=== PATIENT | male | born 1955 | race Caucasian/White ===

== ENCOUNTER → 2021-01-02 09:34 | Outpatient (BNVA) | payer MEDICARE, MEDICAID, SELFPAY | PROVIDERS: PCP Pediatrics; Visit Provider Urology | DX: Z13.89 Encounter for screening for other disorder (principal) | CPT/HCPCS: Q3014 ==

== ENCOUNTER 2023-06-22 12:55 | Emergency (ER) | payer MEDICARE, SELFPAY ==
[2023-06-22 13:05] VITALS: BP 138/92; PULSE 86; RESP 19; TEMP 36.6; O2SAT 93; BMI 29.3
--- NOTE | 2023-06-22 13:10 | ED.GENADULT ---
HPI - General Adult General Chief complaint: Urogenital-Male Stated complaint: Unable to Urinate For 5 Days Time Seen by Provider: 06/22/23 14:02 Source: patient Mode of arrival: ambulatory Limitations: no limitations History of Present Illness HPI narrative: Patient with enlarged prostate and difficult urination with anxiety says that for last 5 days not related much but when she arrived bladder scan showed only 20 cc patient feels very anxious not drinking fluids as he is afraid of his small bladder no nausea no vomiting Related Data Previous Rx's Medication Instructions Recorded pyridoxine (vitamin B6) 100 mg 100 mg PO DAILY 90 days #90 tabs 01/02/21 tablet tamsulosin 0.4 mg capsule (Flomax) 0.4 mg PO BEDTIME #90 caps 06/22/23 Allergies Allergy/AdvReac Type Severity Reaction Status Date / Time No Known Allergies Allergy Verified 06/22/23 13:05 [No Known Allergies*] Review of Systems Review of Systems: Yes all other systems are reviewed and are negative PMF Past Medical History Medical History Erectile dysfunction due to arterial insufficiency Surgical History History of eye surgery Social History Social History Alcohol intake: never Smoked in Last 30 Days: No Use of substances other than those prescribed or required for medical reasons: No Advance Directives: No Advance Directives Information Provided: Yes Physical Exam ED Vital Signs: Vital Signs - 24 hr 06/22/23 13:05 06/22/23 14:18 Temperature 98 F 98.2 F Pulse Rate 86 76 Respiratory Rate 19 16 Blood Pressure 138/92 H 124/81 Pulse Oximetry 93 95 Oxygen Delivery Method Room Air Room Air BMI result Body Mass Index 29.3 Appearance: Alert. Oriented X3. No acute distress. And Eyes: PERRLA, No Nystagmus ENT: Pharynx normal. Oral Mucosa moist Neck: Normal inspection. Neck supple. CVS: Normal heart rate and rhythm. Pulses normal. Respiratory: No respiratory distress. Equal air entry bilateral, no wheezing/rales/rhonchi Abdomen: Soft and nontender. Bowel sounds are present, no mass palpable, no CVA tenderness rectal: Enlarged prostate nontender Skin: Skin warm and dry. Normal skin color. Normal skin turgor. Extremities: No lower extremity edema. No calf tenderness Neuro: Oriented X 3. No motor deficit. Course Course Course Narrative: RME- 67 year old male presents for evaluation of urinary retention. He reports he has not urinated in the last [address] Mendiola. He is not experiencing any pain. Plan for labs, UA and bladder scan. Further work up deferred to primary provider. Medications Administered Discontinued Medications Generic Name Dose Route Start Last Admin Trade Name Freq PRN Reason Stop Dose Admin Tamsulosin HCl 0.4 mg 06/22/23 14:43 06/22/23 14:47 Tamsulosin Hcl 0.4 Mg Capsule PO 06/22/23 14:44 0.4 mg ONCE ONE Administration Medical Decision Making Medical Decision Making [facility] Narrative: Patient urined in the ER UA negative discharge him on Flomax Lab Data [facility] Lab Attestation statement: I reviewed the patient's lab results. 06/22/23 13:11 06/22/23 13:11 Labs: Lab Results 06/22/23 06/22/23 Range/Units 13:11 16:18 WBC 7.6 (4.8-10.8) X10*3/uL RBC 5.93 H (4.60-5.80) X10*6/uL Hgb 17.7 (14.0-18.0) g/dl Hct 51.5 (42.0-52.0) % MCV 86.8 (80.0-98.0) fL MCH 29.8 (27.0-33.0) pg MCHC 34.4 (31.0-36.0) g/dl RDW 13.2 (11.0-16.0) % Plt Count 243 (160-400) X10*3/uL MPV 9.8 (9.4-12.4) fL Immature Gran % (Auto) 0.3 (0.0-0.4) % Neut % (Auto) 50.2 (45-73) % Lymph % (Auto) 36.6 (20-40) % [place] % (Auto) 8.4 (2-11) % Eos % (Auto) 3.4 (0-4) % Baso % (Auto) 1.1 (0-2) % Lymph # (Auto) 2.8 (1.2-4.9) X10*3/uL [place] # (Auto) 0.6 (0.1-1.2) X10*3/uL Eos # (Auto) 0.3 (0.0-0.4) X10*3/uL Baso # (Auto) 0.1 (0.0-0.2) X10*3/uL Abs Immat Gran (auto) 0.02 (0.00-0.03) X10*3/uL Absolute Neuts (auto) 3.8 (2.0-8.3) x10*3/uL Absolute Nucleated RBC 0.000 (0.0-0.012) X10*3/uL Nucleated RBC % (auto) 0.0 (0.0-0.2) /100WBC Sodium 139 (135-145) mmol/L Potassium 4.0 (3.3-5.1) mmol/L Chloride 110 H (96-108) mmol/L Carbon Dioxide 21 L (22-29) mmol/L Anion Gap 12 (12-20) BUN 12 (9-16) mg/dL Creatinine 0.99 (0.5-1.4) mg/dL Estim Creat Clear Calc 73.3 Estimated GFR > 60 Random Glucose 106 (60-115) mg/dL Calcium 9.4 (8.4-10.2) mg/dL Total Bilirubin 0.8 (0.0-1.0) mg/dL AST 29 (5-37) U/L ALT 43 H (0-40) U/L Alkaline Phosphatase 55 (39-117) U/L Total Protein 7.5 (6.5-8.0) g/dL Albumin 4.3 (3.5-5.0) g/dL Lipase 20 (8-78) U/L Urine Color Yellow Urine Appearance Clear Urine pH 5.5 (5.0-9.0) Ur Specific [place] 1.025 (1.005-1.025) Urine Protein Trace (Neg-Trace) mg/dL Urine Glucose (UA) Negative (Negative) mg/dL Urine Ketones 15 (Negative) mg/dL Urine Blood Negative (Negative) Urine Nitrite Negative (Negative) Ur Leukocyte Esterase Negative (Negative) Urine RBC 0-2 (0-2) /HPF Urine WBC 0-5 (0-5) /HPF Ur Squamous Epith Cells 0-2 (0-2) /HPF Urine Bacteria None Seen (None Seen) Hyaline Casts 0-2 (0-2) /LPF Discharge Plan Discharge Clinical Impression: Benign prostatic hyperplasia Patient Disposition: Home, Self-Care Instructions: Enlarged Prostate (BPH) (ED) Additional Instructions: Drink plenty of fluids Take medication as prescribed for enlarged prostate and follow up with urologist Prescriptions: New tamsulosin [Flomax] 0.4 mg capsule 0.4 mg PO BEDTIME Qty: 90 0RF No Action pyridoxine (vitamin B6) 100 mg tablet 100 mg PO DAILY 90 Days Qty: 90 1RF Referrals: Barry Mendiola MD [Physician] - 2 weeks Interventions: ED Discharge Assessment Last Done: 06/22/23 17:19
[2023-06-22 13:22] LABS: MANUAL DIFF FLAG NO
[2023-06-22 13:24] LABS: Basophils Absolute Auto 0.1 X10*3/uL (0.0-0.2); Basophils Percent Auto 1.1 % (0-2); Eosinophils Absolute Auto 0.3 X10*3/uL (0.0-0.4); Eosinophils Percent Auto 3.4 % (0-4); Hematocrit 51.5 % (42.0-52.0); Hemoglobin 17.7 g/dl (14.0-18.0); Imm Gran Abs Auto 0.02 X10*3/uL (0.00-0.03); Imm Gran Pct Auto 0.3 % (0.0-0.4); Lymphocytes Absolute Auto 2.8 X10*3/uL (1.2-4.9); Lymphocytes Percent Auto 36.6 % (20-40); Mean Corpuscular HGB Conc 34.4 g/dl (31.0-36.0); Mean Corpuscular Hemoglobin 29.8 pg (27.0-33.0); Mean Corpuscular Volume 86.8 fL (80.0-98.0); Mean Platelet Volume 9.8 fL (9.4-12.4); Monocytes Absolute Auto 0.6 X10*3/uL (0.1-1.2); Monocytes Percent Auto 8.4 % (2-11); Neutrophils Absolute Auto 3.8 x10*3/uL (2.0-8.3); Neutrophils Percent Auto 50.2 % (45-73); Platelet Count 243 X10*3/uL (160-400); Red Blood Count 5.93 X10*6/uL (4.60-5.80); Red Cell Distribution Width 13.2 % (11.0-16.0); White Blood Count 7.6 X10*3/uL (4.8-10.8)
[2023-06-22 13:38] LABS: Alanine Aminotransferase 43 U/L (0-40); Albumin Level 4.3 g/dL (3.5-5.0); Alkaline Phosphatase 55 U/L (39-117); Anion Gap 12 (12-20); Aspartate Amino Transferase 29 U/L (5-37); Bilirubin Total 0.8 mg/dL (0.0-1.0); Blood Urea Nitrogen 12 mg/dL (9-16); Calcium 9.4 mg/dL (8.4-10.2); Carbon Dioxide 21 mmol/L (22-29); Chloride 110 mmol/L (96-108); Creatinine Clr Calc Pharmacy 73.3; Estimated Glomerular Filt Rate > 60; Glucose Random 106 mg/dL (60-115); Lipase 20 U/L (8-78); Sodium 139 mmol/L (135-145); Total Protein 7.5 g/dL (6.5-8.0)
--- NOTE | 2023-06-22 14:09 | PC.NURSE ---
Pt currently resting on stretcher, appears in NAD. States that he has not voided x4 days. Pt states that he stopped drinking water because he knew he couldn't pee. Hx of enlarged prostate. Bladder scan repeat showed ~20ml of urine. Pt denies pain/any other symptoms. A&Ox4. Calm & cooperative. WCTA
[2023-06-22 14:18] VITALS: BP 124/81; PULSE 76; RESP 16; TEMP 36.8; O2SAT 95
--- NOTE | 2023-06-22 14:19 | PC.NURSE ---
Pt unable to void x4 days, patient endorses history of prostate issues. States he attempted to contact urologist but was referred to ED. Was previously taking [place] but has since stopped. Pt states that he stopped drinking fluids several days ago because he was concerned for urinary retention and his bladder rupturing. Education provided.
[2023-06-22] MEDS: Tamsulosin HCL 0.4 MG CAPSULE PO (14:47)
[2023-06-22 16:00] VITALS: BP 132/88; PULSE 82; RESP 18; O2SAT 94
[2023-06-22 16:40] LABS: Appearance Urine Clear; Color Urine Yellow; Glucose Urine UA Negative (Negative); Leukocyte Esterase Urine Negative (Negative); Nitrite Urine Negative (Negative); PH 5.5 (5.0-9.0); Specific Gravity - Urine 1.025 (1.005-1.025); Urine Blood Negative (Negative); Urine Ketones 15 mg/dL (Negative); Urine Protein Trace mg/dL (Neg-Trace)
[2023-06-22 16:45] LABS: Bacteria Urine None Seen (None Seen); Hyaline Casts Urine 0-2 /LPF (0-2); RBC Urine 0-2 /HPF (0-2); Squamous Epithelial Cell Urine 0-2 /HPF (0-2); WBC Urine 0-5 /HPF (0-5)
== END 2023-06-22 17:48 | disposition home or self-care (01) ==
PROVIDERS: Physician Assistant; Emergency Provider Internal Medicine; PCP Pediatrics
DX: N40.0 Benign prostatic hyperplasia without lower urinary tract symptoms (principal); R33.9 Retention of urine, unspecified; Z79.899 Other long term (current) drug therapy
CPT/HCPCS: 36415; 51798; 80053; 81001; 83690; 85025; 99283; 99285

== ENCOUNTER 2023-09-20 14:34 | Outpatient (AMB) | payer MEDICARE, SELFPAY ==
--- NOTE | 2023-09-20 14:59 | A.OFFVIS_ITS ---
Intake Intake Visit Reasons: establish care/ BPH Intake Note: Patient is Present for Follow Up Urology Medication: Tamsulosin Antibiotic Allergies: none Blood Thinners: None PVR:12 Compliants: Patient was seen at ER few months back for retention. Patient states that his prostate is enlarged and caused him some urinary issues Allergies No Known Allergies [No Known Allergies*] Allergy (Verified 06/22/23 13:05) Medication List - Last Reconciled 09/20/23 by Barry Mendiola MD pyridoxine (vitamin B6) 100 mg PO DAILY 90 days tamsulosin (Flomax) 0.4 mg PO BEDTIME HPI HPI Comments History of Present Illness Details Margarito LOJA is a very pleasant male. They are a patient of Dr Platt. They are seen in the office today for the following urologic conditions. - nephrolithiasis - erectile dysfunction Had episode of urinary retention 3 months ago On Flomax with good effect No current active stones No recent imaging Restart vitamin B6 and perform imaging in 6 months Erections responsive to viagra Nephrolithiasis/Urolithiasis: Urolithiasis was diagnosed Long standing stone [place] [facility] [place] The patient previously had kidney stones whose composition w unknown. Laboratory investigations include no recent labs. 24 Hour urine evaluation none on file. Prior treatment(s) include 05/31/18 , left. Prior imaging includes 05/27 , a CT (computed tomography) scan of the abdomen/pelvis (stone protocol), showing radiodense stone(s) 4 x 4mm stones with 1 in left ureter 06/27 , a renal ultrasound 3 x left renal stones 4mm 02/25 , a renal ultrasound 3 x small stone son left 07/28 , a renal ultrasound, 3x 3mm stones on left side. The stone's maximum size is < 5mm. Current therapeutic plan will be to perform metabolic evaluation, General advice to maintain good fluid intake for urine greater than 1.5 L per day, reduce salt and reduce protein and acid loads was provided.. Erectile dysfunction: He presents today for for continued evaluation and management of erectile dysfunction. Symptoms have been present for/since long standing. Current treatment includes none. Prior therapies include oral medications - good response. At this time he experiences erections 05/27 are partial and insufficient for vaginal penetration, that undergo rapid detumesence after penetration, MARIEL 8-11 Moderate ED. Nocturnal erections do not occur. Overall he is satisfied with the current management. Therapeutic plan includes maintaining current therapy COUNT INCLUDES [facility] Medical History Erectile dysfunction due to arterial insufficiency Surgical History History of eye surgery Social History Alcohol intake: never Review of Systems Const Denies chills and Denies fever(s) Card Reports no additional complaints and Denies syncope Resp Denies cough GI Denies abdominal pain and Denies heartburn Reports as per HPI and Denies change in libido Neuro Denies syncope Psych Denies change in libido Endo Denies change in libido Physical Exam Const General: cooperative, healthy appearing, comfortable and no acute distress Orientation/consciousness: patient oriented x3 HEENT Face and sinus: Yes normal facial exam Mouth: moist mucous membranes Neck Neck: Yes normal visual inspection, Yes full ROM and Yes trachea midline Chest Chest palpation & inspection: normal inspection of the chest Resp Effort & Inspection: normal respiratory effort, able to speak in complete sentences and no respiratory distress GI Inspection: Yes normal to inspection Back/Spine/Pelvis Cervical Spine: normal cervical lordosis Thoracic/Lumbar Spine: thoracic and lumbar spine normal to inspection Skin General skin exam: no rashes or lesions noted Neuro General: patient oriented x3, gait normal, tone normal and moves all extremities Extrem General: Yes normal to inspection and Yes capillary refill normal Office Procedures Post Void Residual Post Residual Void Post Void Residual (PVR): 12 [id number] Void Residual by ultrasound Assessment & Plan Assessment & Plan (1) Erectile dysfunction due to arterial insufficiency: Code(s): N52.01 - Erectile dysfunction due to arterial insufficiency (2) Nephrolithiasis: Code(s): N20.0 - Calculus of kidney Plan Six month follow-up Orders: Orders AMB Urinalysis Automated Today Z13.9 - Encounter for screening, unspecified AMB Post Void Residual by ultrasound Today Z87.898 - Personal history of other specified conditions US renal BI 6 Months N20.0 - Calculus of kidney PSA,Total (Free>4and<10) 6 Months N52.01 - Erectile dysfunction due to arterial insufficiency Medications: Changed From pyridoxine (vitamin B6) 100 mg PO DAILY 90 days 90 tabs 1RF N20.0 - Calculus of kidney To pyridoxine (vitamin B6) 50 mg PO DAILY 90 days 90 tabs 1RF N20.0 - Calculus of kidney Patient Instructions: Imaging studies, laboratory and physical exam results were discussed and reviewed in detail. No major barriers to patient understanding were identified. An opportunity to ask questions regarding the treatment plan was provided. All questions were answered. The patient expressed understanding and agreement with the above treatment plan. The patient is aware they should contact our office by phone for worsening of their current condition or the appearance of new urologic symptoms. Compliance is encouraged with any medications and followup testing that is ordered. It is a privilege to participate in the urologic care of your patient. If you have any questions or concerns regarding treatment for the above conditions, or other urologic issues, please do not hesitate to contact me. The office telephone contact is [phone]. This note is constructed using voice recognition software. While every effort has been made to ensure accuracy filler shaker errors may have been included. Yours sincerely, Dr Barry Mendiola MD, [facility] - Urology Providers of Expert, Compassionate Care for the Genitourinary System Coding Level of Care Code Est Pt Level 4 (81814) Diagnoses Erectile dysfunction due to arterial insufficiency N52.01 Nephrolithiasis N20.0 CPT Codes Post Residual Void - PVR CPT Code: 91231-Umyb Void Residual by ultrasound ([id number])
== END 2023-09-20 15:29 | disposition home or self-care (01) ==
PROVIDERS: PCP Pediatrics; Visit Provider Urology
DX: N52.01 Erectile dysfunction due to arterial insufficiency (principal); N20.0 Calculus of kidney
CPT/HCPCS: 99214

== ENCOUNTER → 2023-09-20 14:34 | Outpatient (BNVA) | payer MEDICARE, SELFPAY | PROVIDERS: PCP Pediatrics; Visit Provider Urology | DX: N52.01 Erectile dysfunction due to arterial insufficiency (principal); N20.0 Calculus of kidney | CPT/HCPCS: 51798; 99212 ==

== ENCOUNTER 2024-03-14 12:40 | Outpatient (REF) | payer MEDICARE, SELFPAY ==
--- NOTE | ~2024-03-14 | US_ITS ---
EXAMINATION: US RETROPERITONEAL LIMITED (RENAL ONLY) CLINICAL INFORMATION: Calculus of kidney. COMPARISON: Renal ultrasound 07/09/2019 and 02/23/2019. CT abdomen and pelvis 04/16/2018. TECHNIQUE: Real-time imaging of the kidneys. Limited visualization due to bowel gas. FINDINGS: RIGHT KIDNEY: 11.7 x 5.3 x 4.7 cm (SAG x AP x TRV). No hydronephrosis. No renal calculi. Renal cortical thickness is normal. Limited visualization. LEFT KIDNEY: 12.2 x 5.1 x 4.2 cm (SAG x AP x TRV). A 3 mm lower pole calculus. No hydronephrosis. 3 mm punctate echogenic focus in the left renal cortex characteristic of calcification. Limited visualization. Renal cortical thickness is normal. US/US renal BI IMPRESSION: Left renal 3 mm lower pole calculus. No hydronephrosis.
== END 2024-03-14 12:41 | disposition home or self-care (01) ==
LOC: HO.US 12:40
PROVIDERS: PCP Pediatrics; Visit Provider Urology
DX: N20.0 Calculus of kidney (principal)
CPT/HCPCS: 76775

== ENCOUNTER 2024-03-21 14:32 | Outpatient (AMB) | payer MEDICARE, SELFPAY ==
--- NOTE | 2024-03-21 15:03 | A.OFFVIS_ITS ---
Intake Visit Reasons: 6m/US/PSA/PVR(PSA) Intake Note: Patient is Present for PVR/US Urology Med: Tamsulosin Antibiotic Allergy:None Blood Thinner: None Last PVR: 12 Todays PVR:38 Allergies No Known Allergies [No Known Allergies*] Allergy (Verified 03/25/24 06:53) HPI Comments Details: Margarito LOJA is a very pleasant male. They are a patient of Dr Platt. They are seen in the office today for the following urologic conditions. - nephrolithiasis - erectile dysfunction Six-month follow-up Prior episode of retention late 2022 Renal ultrasound 3 mm left lower pole stone Erections less responsive to on demand sildenafil. Discussed trial daily tadalafil. Prescription provided. Nephrolithiasis/Urolithiasis: Urolithiasis was diagnosed Long standing stone former 05/29/18 [facility] [place] visit. The patient previously had kidney stones whose composition w unknown. Laboratory investigations include no recent labs. 24 Hour urine evaluation none on file. Prior treatment(s) include 05/31/18 , left. Prior imaging includes 05/27 , a CT (computed tomography) scan of the abdomen/pelvis (stone protocol), showing radiodense stone(s) 4 x 4mm stones with 1 in left ureter 06/27 , a renal ultrasound 3 x left renal stones 4mm 02/25 , a renal ultrasound 3 x small stone son left 07/28 , a renal ultrasound, 3x 3mm stones on left side. - 03/02 renal ultrasound 3 mm left lower pole stone The stone's maximum size is < 5mm. Current therapeutic plan will be to perform metabolic evaluation, General advice to maintain good fluid intake for urine greater than 1.5 L per day, reduce salt and reduce protein and acid loads was provided.. Erectile dysfunction: He presents today for for continued evaluation and management of erectile dysfunction. Symptoms have been present for/since long standing. Current treatment includes none. Prior therapies include oral medications - good response. At this time he experiences erections 05/27 are partial and insufficient for vaginal penetration, that undergo rapid detumesence after penetration, MARIEL 8-11 Moderate ED. Nocturnal erections do not occur. Overall he is satisfied with the current management. Therapeutic plan includes maintaining current therapy PFSH Medical History Erectile dysfunction due to arterial insufficiency Surgical History History of eye surgery Social History Alcohol intake: never Use of substances other than those prescribed or required for medical reasons: No Advance Directives: No Advance Directives Information Provided: Yes Do you have a plan to hurt others: No Plan Review of Systems Const Denies chills and Denies fever(s) Card Reports no additional complaints and Denies syncope Resp Denies cough GI Denies abdominal pain and Denies heartburn Reports as per HPI and Denies change in libido Neuro Denies syncope Psych Denies change in libido Endo Denies change in libido Physical Exam Const General: cooperative, healthy appearing, comfortable and no acute distress Orientation/consciousness: patient oriented x3 HEENT Face and sinus: Yes normal facial exam Mouth: moist mucous membranes Neck Neck: Yes normal visual inspection, Yes full ROM and Yes trachea midline Chest Chest palpation & inspection: normal inspection of the chest Resp Effort & Inspection: normal respiratory effort, able to speak in complete sentences and no respiratory distress GI Inspection: Yes normal to inspection Back/Spine/Pelvis Cervical Spine: normal cervical lordosis Thoracic/Lumbar Spine: thoracic and lumbar spine normal to inspection Skin General skin exam: no rashes or lesions noted Neuro General: patient oriented x3, gait normal, tone normal and moves all extremities Extrem General: Yes normal to inspection and Yes capillary refill normal Office Procedures Post Void Residual Post Residual Void Post Void Residual (PVR): 38 [id number] Void Residual by ultrasound Assessment & Plan Assessment & Plan (1) Erectile dysfunction due to arterial insufficiency: Code(s): N52.01 - Erectile dysfunction due to arterial insufficiency Category: Medical (2) Nephrolithiasis: Code(s): N20.0 - Calculus of kidney Category: Medical Plan Three-month follow-up Orders: Orders Prostate Specific Antigen 3 Months N52.01 - Erectile dysfunction due to arterial insufficiency AMB Post Void Residual by ultrasound 03/21/24 Z13.9 - Encounter for screening, unspecified Testosterone, Free/Total 3 Months N52.01 - Erectile dysfunction due to arterial insufficiency Medications: New tadalafil 5 mg PO DAILY 90 tabs 0RF sexual activity 90 days N52.01 - Erectile dysfunction due to arterial insufficiency Patient Instructions: Imaging studies, laboratory and physical exam results were discussed and reviewed in detail. No major barriers to patient understanding were identified. An opportunity to ask questions regarding the treatment plan was provided. All questions were answered. The patient expressed understanding and agreement with the above treatment plan. The patient is aware they should contact our office by phone for worsening of their current condition or the appearance of new urologic symptoms. Compliance is encouraged with any medications and followup testing that is ordered. It is a privilege to participate in the urologic care of your patient. If you have any questions or concerns regarding treatment for the above conditions, or other urologic issues, please do not hesitate to contact me. The office telephone contact is [phone]. This note is constructed using voice recognition software. While every effort has been made to ensure accuracy tube dispatcher errors may have been included. Yours sincerely, Dr Barry Mendiola MD, [facility] - Urology Providers of Expert, Compassionate Care for the Genitourinary System Coding Level of Care Code Est Pt Level 4 (08368) Diagnoses Erectile dysfunction due to arterial insufficiency N52.01 Nephrolithiasis N20.0 CPT Codes Post Residual Void - PVR CPT Code: 13310-Tbfc Void Residual by ultrasound ([id number])
== END 2024-03-21 15:42 | disposition home or self-care (01) ==
PROVIDERS: PCP Pediatrics; Visit Provider Urology
DX: N52.01 Erectile dysfunction due to arterial insufficiency (principal); N20.0 Calculus of kidney
CPT/HCPCS: 99214

== ENCOUNTER → 2024-03-21 14:32 | Outpatient (BNVA) | payer MEDICARE, SELFPAY | PROVIDERS: PCP Pediatrics; Visit Provider Urology | DX: N20.0 Calculus of kidney (principal); N52.01 Erectile dysfunction due to arterial insufficiency | CPT/HCPCS: 51798; 99212 ==

== ENCOUNTER 2024-03-25 06:48 | Emergency (ER) | payer MEDICARE, SELFPAY ==
[2024-03-25 06:50] VITALS: BP 142/89; PULSE 92; RESP 18; TEMP 36.6; O2SAT 97; BMI 34.5
--- NOTE | 2024-03-25 07:23 | ECG_ITS ---
Test Reason : HYPERTENSION Blood Pressure : / mmHG Vent. Rate : 084 BPM Atrial Rate : 084 BPM P-R Int : 154 ms QRS Dur : 090 ms QT Int : 386 ms P-R-T Axes : 041 -02 030 degrees QTc Int : 456 ms Normal sinus rhythm Low voltage QRS Borderline ECG When compared with ECG of 03-MAR-2020 07:58, Vent. rate has increased BY 33 BPM Referred By: Cornel Flores Electronically Signed By:SAMANTHA GUERIN
--- NOTE | 2024-03-25 07:25 | ED_ITS ---
HPI - General Adult General Chief complaint: General Medical Stated complaint: High Blood Pressure Time Seen by Provider: 03/25/24 07:23 Source: patient Mode of arrival: ambulatory Limitations: no limitations History of Present Illness ED Provider: Cornel Flores PA-C HPI narrative: This is a 68 yo male pmh nephrolithiasis and erectile dysfunction presenting with complaint of high blood pressure x a day and a half. Patient reports he was researching online ways to become healthier and lower my sodium, cholesterol, and all that when he decided he should check his blood pressure. States he took his blood pressure multiple time at home and reports the highest reading was 158/127 which concerned him and led him to come in to ED at that time he did not have chest pain, sob, headache, dizziness, wekaness, vision changes. Patient reports he is inactive and overweight and does not participate in any forms of exercise. Denies chest pain, SOB, fever, chills, difficulty ambulating, headache, fatigue, weakness, numbness, tingling. Patient states he has not seen his PCP in 3 years due to the pandemic. He offers no complaints at this time just wants to get checked out. Related Data Previous Rx's ?Medication ?Instructions ?Recorded tamsulosin 0.4 mg capsule (Flomax) 0.4 mg PO BEDTIME #90 caps 06/22/23 pyridoxine (vitamin B6) 50 mg 50 mg PO DAILY 90 days #90 tabs 09/20/23 tablet tadalafil 5 mg tablet 5 mg PO DAILY sexual activity 90 03/21/24 days #90 tabs Allergies Allergy/AdvReac Type Severity Reaction Status Date / Time No Known Allergies Allergy Verified 03/25/24 06:53 [No Known Allergies*] Review of Systems 2 Review of Systems: Yes all other systems are reviewed and are negative [facility] Past Medical History Medical History Erectile dysfunction due to arterial insufficiency Surgical History History of eye surgery Social History Social History Alcohol intake: never Use of substances other than those prescribed or required for medical reasons: No Advance Directives: No Advance Directives Information Provided: Yes Do you have a plan to hurt others: No Plan Physical Exam ED Vital Signs: Vital Signs - 24 hr 03/25/24 06:50 03/25/24 07:48 Temperature 97.8 F 97.8 F Pulse Rate 92 88 Respiratory Rate 18 12 Blood Pressure 142/89 H 124/73 Pulse Oximetry 97 98 Oxygen Delivery Method Room Air Room Air BMI result Body Mass Index 34.5 vss. Appearance: Alert.? Oriented X3.? No acute distress.? Head: Normocephalic, atraumatic, no step-offs or deformities Eyes: Pupils equal, round and reactive to light.? Neck: Normal inspection.? Neck supple.? CVS: Normal heart rate and rhythm.? Pulses normal.? Respiratory: No respiratory distress.? Breath sounds normal.? Abdomen: Soft and nontender.? Skin: Skin warm and dry.? Normal skin color.? Normal skin turgor.? Extremities: No lower extremity edema.? No calf ttp. 5/5 strength to bilateral upper and lower extremities Neuro: Oriented X 3.? No motor deficit.? No sensory deficit. CN 2-12 intact Course Reevaluation(s) Reevaluation #1: CBC unremarkable. Chemistry pending. EKG nonischemic. Patient likely to be discharged home with PCP follow-up. I did give him a list of PCPs in the area so he could get a new primary care in case his primary will not see him anymore. Time: 07:58 Reevaluation #2: chemistry unremarkable. Normal trop ekg non ischemic. Plan dc home. Patient agrees with plan. Offers no medical complaints at this time. Educated patient on diagnosis and treatment plan, answered all question, patient verbalizes understanding. At this time patient will be discharged home, advised to return with new or worsening symptoms. Educated on worrisome signs and symptoms and when to return. At this time I feel comfortable discharge home. Time: 08:17 Medical Decision Making Medical Decision Making [facility] Narrative: [id number] 68 yo male with concern of high blood pressure readings taken at home x 1-2 days, highest reading reported at 158/127. Has not seen PCP in 3 years. PE: Benign Differential: Primary vs secondary HTN. Unlikely pheochromocytoma, malignancy, CO, hypertensive crisis/emergency, brain bleed, stroke, increased ICP. Plan: Labs, EKG, provide PCP resources Differential Diagnosis Differential Diagnoses: The differential diagnosis associated with the presentation includes Primary vs secondary HTN. Unlikely pheochromocytoma, malignancy, CO, hypertensive crisis/emergency, brain bleed, stroke, increased ICP. Admission/Observation Consideration of admission/observation: Escalation of care including admission/observation considered Unlikely Lab Data MDM Lab Attestation statement: I reviewed the patient's lab results. 03/25/24 07:44 03/25/24 07:44 Labs: Lab Results 03/25/24 Range/Units 07:44 WBC 6.1 (4.8-10.8) X10*3/uL RBC 5.22 (4.60-5.80) X10*6/uL Hgb 15.8 (14.0-18.0) g/dl Hct 44.7 (42.0-52.0) % MCV 85.6 (80.0-98.0) fL MCH 30.3 (27.0-33.0) pg MCHC 35.3 (31.0-36.0) g/dl RDW 13.5 (11.0-16.0) % Plt Count 198 (160-400) X10*3/uL MPV 10.3 (9.4-12.4) fL Immature Gran % (Auto) 0.5 H (0.0-0.4) % Neut % (Auto) 44.9 L (45-73) % Lymph % (Auto) 41.8 H (20-40) % Shannon % (Auto) 6.5 (2-11) % Eos % (Auto) 5.2 H (0-4) % Baso % (Auto) 1.1 (0-2) % Lymph # (Auto) 2.6 (1.2-4.9) X10*3/uL Shannon # (Auto) 0.4 (0.1-1.2) X10*3/uL Eos # (Auto) 0.3 (0.0-0.4) X10*3/uL Baso # (Auto) 0.1 (0.0-0.2) X10*3/uL Abs Immat Gran (auto) 0.03 (0.00-0.03) X10*3/uL Absolute Neuts (auto) 2.7 (2.0-8.3) x10*3/uL Absolute Nucleated RBC 0.000 (0.0-0.012) X10*3/uL Nucleated RBC % (auto) 0.0 (0.0-0.2) /100WBC Sodium 141 (135-145) mmol/L Potassium 3.8 (3.3-5.1) mmol/L Chloride 109 H (96-108) mmol/L Carbon Dioxide 23 (22-29) mmol/L Anion Gap 13 (12-20) BUN 10 (9-16) mg/dL Creatinine 0.99 (0.5-1.4) mg/dL Estim Creat Clear Calc 78.1 Estimated GFR > 60 Random Glucose 114 (60-115) mg/dL Calcium 9.2 (8.4-10.2) mg/dL Magnesium 2.1 (1.6-2.6) mg/dL Total Bilirubin 0.6 (0.0-1.0) mg/dL AST 32 (5-37) U/L ALT 35 (0-40) U/L Alkaline Phosphatase 51 (39-117) U/L Troponin I High Sens < 2.7 (<3.5-35.0) ng/L Total Protein 6.8 (6.5-8.0) g/dL Albumin 4.1 (3.5-5.0) g/dL Independent Interpretation I performed an independent interpretation of an: EKG (EKG results: Test Reason : HYPERTENSION Blood Pressure : / mmHG Vent. Rate : 084 BPM Atrial Rate : 084 BPM P-R Int : 154 ms QRS Dur : 090 ms QT Int : 386 ms P-R-T Axes : 041 -02 030 degrees QTc Int : 456 ms Normal sinus rhythm Low voltage QRS Borderline ECG When ) External Record Review External record reviewed: Outpatient record and Prior outpatient labs Chronic Conditions Patient?s care impacted by: Other (erectile dysfunction ) Critical Care Time Critical Care Time Critical Care Time: No Discharge Plan Discharge Clinical Impression: Hypertension Patient Disposition: Home, Self-Care Instructions: Hypertension (ED), Hypertension in the Older Adult (ED) Additional Instructions: Take your medications as prescribed. If you were prescribed antibiotics today, it is important that you take your medication to their entirety, do not skip any doses, do not finish them early. Follow-up with your primary care provider this week. Return to the emergency department with new or worsening symptoms. Such as fevers, chills, chest pain, shortness of breath, nausea, vomiting, dizziness, headache, vision changes, lethargy In case of emergency call 911 Check your blood pressure Tuesday, Tuesday, Tuesday once a day, write it down and share this information with your primary care provider. If your primary care provider does not see you due to lack of seeing them over the past few years I did give you a list of primary care providers in the area that are taking patients. Please call to schedule an appointment. Return if you have any symptoms such as chest pain, shortness of breath, headache, vision changes, dizziness or any new or worsening symptoms. Prescriptions: No Action tamsulosin [Flomax] 0.4 mg capsule 0.4 mg PO BEDTIME Qty: 90 0RF pyridoxine (vitamin B6) 50 mg tablet 50 mg PO DAILY 90 Days Qty: 90 1RF tadalafil 5 mg tablet 5 mg PO DAILY 90 Days Qty: 90 0RF Referrals: Physician,Unknown J [Primary Care Provider] - 2 days Stand Alone Forms: Work/School Release Print Language: [place]se
--- NOTE | 2024-03-25 07:27 | PC.NURSE ---
Pt comes from home for high BP readings starting a day ago. Pt not on blood pressure meds. States at home they were 100s/100s but since being here most recent blood pressure 124/73. Pt states no new stressors in life causing the high BP. Denies neuro symptoms, SOB, CP, n/v/d/ALLEN. EKG obtained. Awaiting lab results. Call hartman within reach.
[2024-03-25 07:48] VITALS: BP 124/73; PULSE 88; RESP 12; TEMP 36.6; O2SAT 98
[2024-03-25 07:50] LABS: MANUAL DIFF FLAG NO
[2024-03-25 07:57] LABS: Basophils Absolute Auto 0.1 X10*3/uL (0.0-0.2); Basophils Percent Auto 1.1 % (0-2); Eosinophils Absolute Auto 0.3 X10*3/uL (0.0-0.4); Eosinophils Percent Auto 5.2 % (0-4); Hematocrit 44.7 % (42.0-52.0); Hemoglobin 15.8 g/dl (14.0-18.0); Imm Gran Abs Auto 0.03 X10*3/uL (0.00-0.03); Imm Gran Pct Auto 0.5 % (0.0-0.4); Lymphocytes Absolute Auto 2.6 X10*3/uL (1.2-4.9); Lymphocytes Percent Auto 41.8 % (20-40); Mean Corpuscular HGB Conc 35.3 g/dl (31.0-36.0); Mean Corpuscular Hemoglobin 30.3 pg (27.0-33.0); Mean Corpuscular Volume 85.6 fL (80.0-98.0); Mean Platelet Volume 10.3 fL (9.4-12.4); Monocytes Absolute Auto 0.4 X10*3/uL (0.1-1.2); Monocytes Percent Auto 6.5 % (2-11); Neutrophils Absolute Auto 2.7 x10*3/uL (2.0-8.3); Neutrophils Percent Auto 44.9 % (45-73); Platelet Count 198 X10*3/uL (160-400); Red Blood Count 5.22 X10*6/uL (4.60-5.80); Red Cell Distribution Width 13.5 % (11.0-16.0); White Blood Count 6.1 X10*3/uL (4.8-10.8)
[2024-03-25 08:05] LABS: Alanine Aminotransferase 35 U/L (0-40); Albumin Level 4.1 g/dL (3.5-5.0); Alkaline Phosphatase 51 U/L (39-117); Anion Gap 13 (12-20); Aspartate Amino Transferase 32 U/L (5-37); Bilirubin Total 0.6 mg/dL (0.0-1.0); Blood Urea Nitrogen 10 mg/dL (9-16); Calcium 9.2 mg/dL (8.4-10.2); Carbon Dioxide 23 mmol/L (22-29); Chloride 109 mmol/L (96-108); Creatinine Clr Calc Pharmacy 78.1; Estimated Glomerular Filt Rate > 60; Glucose Random 114 mg/dL (60-115); Magnesium 2.1 mg/dL (1.6-2.6); Potassium 3.8 mmol/L (3.3-5.1); Sodium 141 mmol/L (135-145); Total Protein 6.8 g/dL (6.5-8.0)
[2024-03-25 08:13] LABS: Troponin-I High Sensitivity < 2.7 ng/L (<3.5-35.0)
[2024-03-25 08:14] VITALS: BP 131/82; PULSE 78; RESP 12; O2SAT 95
[2024-03-25 08:33] VITALS: BP 131/82; PULSE 76; RESP 15; TEMP 36.7; O2SAT 96
== END 2024-03-25 08:34 | disposition home or self-care (01) ==
PROVIDERS: Physician Assistant; Emergency Provider Emergency Medicine Emergency Medical Services
DX: I10 Essential (primary) hypertension (principal)
CPT/HCPCS: 36415; 80053; 83735; 84484; 85025; 93005; 99283; 99284

== ENCOUNTER → 2024-03-25 07:23 | Outpatient (BNV) | payer MEDICARE, SELFPAY | PROVIDERS: Emergency Provider Emergency Medicine Emergency Medical Services; Visit Provider Internal Medicine | DX: I10 Essential (primary) hypertension (principal) | CPT/HCPCS: 93010 ==

== ENCOUNTER 2024-08-13 09:06 | Outpatient (AMB) | payer MEDICARE, SELFPAY ==
--- NOTE | 2024-08-13 09:14 | AM.OFFWIN_ITS ---
Intake Vital Signs 08/13/24 09:15 Height 5 ft 7 in Weight 227 lb BMI 35.5 BP 132/80 Blood Pressure Location Lt brachial Position Sitting Pulse 89 Pulse Source Pulse Oximeter Temp 97.7 F Temp Source Oral Pulse Oximetry (%) 98 Oxygen Delivery Method Room Air Intake Visit Reasons: EP trouble sleeping Intake Note: Pt is here today c/o insomnia Allergies No Known Allergies [No Known Allergies*] Allergy (Verified 03/25/24 06:53) HPI EP trouble sleeping HPI Details This note is constructed using voice recognition software. While every effort has been made to ensure accuracy, fruit and vegetable inspector errors may have been included. The patient is a 69 year old male who presents to the clinic today with insomnia for the past 1 year. He reports he does not have a pcp and he has been waking 10 times per night due to prostate issues, which he is treated for. He reports that he has taken Tylenol PM as well as ZzzQuil which did not help the sleep. He requests Ambien, as he reports he has had this prescribed to him in the past, but it was taken away from him from his snf house due to taking it every day. [facility] Medical History Erectile dysfunction due to arterial insufficiency Surgical History History of eye surgery Social History Alcohol intake: never Review of Systems Const All systems reviewed & are unremarkable except as noted in HPI and below Physical Exam Vital Signs: Last Vital Signs Temp 97.7 F 08/13/24 09:15 Pulse 89 08/13/24 09:15 BP 132/80 08/13/24 09:15 Pulse Ox 98 08/13/24 09:15 Oxygen Delivery Method Room Air 08/13/24 09:15 BMI result Body Mass Index 35.5 Const General: cooperative, healthy appearing, comfortable, no acute distress and well developed Limitations: no limitations Eyes General: appearance normal, both eyes and all related structures Neck Neck: Yes normal visual inspection Resp Effort & Inspection: normal respiratory effort and able to speak in complete sentences Skin General skin exam: no rashes or lesions noted Assessment & Plan Assessment & Plan (1) Insomnia: Code(s): G47.00 - Insomnia, unspecified Qualifiers: Insomnia type: unspecified Qualified Code(s): G47.00 - Insomnia, unspecified Plan: Advised antihistamine use, and given reported failed response to diphenhydramine, will trial hydroxyzine prn. Advised follow up with pcp, and establish with new pcp. Plan See above for full details and plan. Medications: New hydroxyzine HCl 25 mg PO BEDTIME 15 days PRN 15 tabs 0RF insomnia Coding Level of Care Code Est Pt Level 3 (57564) Diagnoses Insomnia, unspecified type G47.00 Insomnia type: unspecified
[2024-08-13 09:15] VITALS: BP 132/80; PULSE 89; TEMP 36.5; O2SAT 98; BMI 35.5
== END 2024-08-13 09:48 | disposition home or self-care (01) ==
PROVIDERS: Visit Provider Registered Nurse
DX: G47.00 Insomnia, unspecified (principal)

== ENCOUNTER → 2024-08-13 09:06 | Outpatient (BNVA) | payer MEDICARE, SELFPAY | PROVIDERS: Visit Provider Registered Nurse | DX: G47.00 Insomnia, unspecified (principal) | CPT/HCPCS: 99212 ==

== ENCOUNTER 2024-08-29 11:59 | Emergency (ER) | payer MEDICARE, SELFPAY ==
--- NOTE | 2024-08-29 12:02 | ED_ITS ---
HPI - General Adult General Chief complaint: Extremity Injury, Lower Stated complaint: l knee pain Time Seen by Provider: 08/29/24 12:07 Source: patient Mode of arrival: ambulatory Limitations: no limitations History of Present Illness ED Provider: Radha DUBOIS narrative: Patient is a 69-year old male presenting with complaint of left knee pain for 5 weeks. Denies fall or other trauma. Seen by [facility] 3 days ago and treated with cortisone injection, denies improvement. Has already had x-rays. Rates current pain at 5/10. States that he is looking for oxycodone for pain. Denies fevers. Denies calf pain or swelling. MD complaint: knee pain Onset (ago): week(s) Treatments prior to arrival: other Related Data Previous Rx's ?Medication ?Instructions ?Recorded tamsulosin 0.4 mg capsule (Flomax) 0.4 mg PO BEDTIME #90 caps 06/22/23 pyridoxine (vitamin B6) 50 mg 50 mg PO DAILY 90 days #90 tabs 09/20/23 tablet tadalafil 5 mg tablet 5 mg PO DAILY sexual activity 90 03/21/24 days #90 tabs hydroxyzine HCl 25 mg tablet 25 mg PO BEDTIME PRN insomnia 15 08/13/24 days #15 tabs Allergies Allergy/AdvReac Type Severity Reaction Status Date / Time No Known Allergies Allergy Verified 08/29/24 12:04 [No Known Allergies*] Review of Systems Review of Systems: As per HPI Yes all other systems are reviewed and are negative Constitutional: Constitutional: Reports as per HPI [facility] Past Medical History Medical History Erectile dysfunction due to arterial insufficiency Surgical History History of eye surgery Social History Social History Alcohol intake: never Physical Exam ED Vital Signs: Vital Signs - 24 hr 08/29/24 12:03 Temperature 98 F Pulse Rate 79 Respiratory Rate 19 Blood Pressure 159/91 H Pulse Oximetry 98 Oxygen Delivery Method Room Air BMI result Body Mass Index 34.5 Vital signs have been reviewed and appear to be correct. Blood pressure elevated. Heart rate normal. Respiratory rate normal. Temperature normal. Oxygen saturation normal. Const General: cooperative, healthy appearing and no acute distress Orientation/consciousness: oriented to person, oriented to place, oriented to time and patient oriented x3 Limitations: no limitations HENMT Head: Yes normocephalic and Yes atraumatic Ears: external ears normal General nose exam: Normal external nose present Face and sinus: Yes face symmetric Mouth: oropharynx normal and moist mucous membranes Throat: Yes uvula midline Eyes Pupils: Equal, round and reactive pupils present Neck Neck: Yes normal visual inspection and Yes supple Resp Effort & Inspection: normal respiratory effort and able to speak in complete sentences Auscultation: clear to auscultation bilaterally Cardio Rate: regular rate Rhythm: regular rhythm Heart sounds: S1 normal heart sound present and S2 normal heart sound present GI Palpation (GI): Soft to palpation and nontender Auscultation: normoactive bowel sounds General: Yes no CVA tenderness Back/Spine/Pelvis Back: no CVA tenderness Skin General skin exam: elasticity normal and turgor normal Neuro General: oriented to person, oriented to place, oriented to time, patient oriented x3, moves all extremities, no focal motor deficits and CN's II-XI intact bilaterally Cranial nerves: Yes Equal, round and reactive pupils present Cognition (Neuro): normal cognition Extrem General: Yes full ROM, Yes no pedal edema and Yes no calf tenderness Left lower extremity: knee Details: normal to inspection, normal ROM and knee ligament exam normal; no swelling Psych Mental Status: mental status grossly normal Affect: normal affect Thought process: Normal thought process present Medical Decision Making Medical Decision Making MDM Narrative: Patient is a 69-year old male presenting with complaint of left knee pain for 5 weeks. On exam patient is awake, A+Ox3, BP elevated, VS otherwise WNL, afebrile, normal neurological exam without focal deficits, physical exam findings as above. Given reported symptoms and physical exam findings, initial differential includes osteoarthritis, effusion. No evidence of septic joint or ligamentous injury. Upon exam, patient states he is here for oxycodone for pain. Discussed with patient that oxycodone would not be appropriate management for 5/10 knee pain ongoing for over 5 weeks. Patient verbalized understanding of this, then asked for sleeping pills. Discussed with patient that this would be something to discussed with his primary care provider. Offered treatment with lidocaine patches or topical diclofenac gel, which patient declined. Advised patient to follow up with [facility]. Patient declined any additional evaluation or treatment. Stable for discharge. Differential Diagnosis Differential Diagnoses: The differential diagnosis associated with the presentation includes As per [facility] External Record Review External record reviewed: Inpatient record, Office record and Outpatient record Prescription Management I considered prescription management with: Pain Medication Discharge Plan Discharge Clinical Impression: Left knee pain Patient Disposition: Home, Self-Care Instructions: Knee Pain (ED) Additional Instructions: You were evaluated in the emergency department for knee pain. You were offered treatment with medication which you declined. We recommend that you follow up with [facility]. Return for new or concerning symptoms. Prescriptions: No Action tamsulosin [Flomax] 0.4 mg capsule 0.4 mg PO BEDTIME Qty: 90 0RF pyridoxine (vitamin B6) 50 mg tablet 50 mg PO DAILY 90 Days Qty: 90 1RF tadalafil 5 mg tablet 5 mg PO DAILY 90 Days Qty: 90 0RF hydroxyzine HCl 25 mg tablet 25 mg PO BEDTIME PRN (Reason: insomnia) 15 Days Qty: 15 0RF Print Language: Icelandic
[2024-08-29 12:03] VITALS: BP 159/91; PULSE 79; RESP 19; TEMP 36.6; O2SAT 98; BMI 34.5
--- NOTE | 2024-08-29 12:10 | PC.NURSE ---
pt asked for oxycodone or sleeping pills, informed that we do not prescribe oxydodone for chronic pain
[2024-08-29 12:20] VITALS: BP 159/91; PULSE 79; RESP 19; TEMP 36.6; O2SAT 98
== END 2024-08-29 12:20 | disposition home or self-care (01) ==
PROVIDERS: Emergency Provider Emergency Medicine
DX: M25.562 Pain in left knee (principal)
CPT/HCPCS: 99282

== ENCOUNTER 2024-10-08 11:27 | Inpatient (IN) | payer MEDICARE, SELFPAY ==
--- NOTE | ~2024-10-08 | XR_ITS ---
EXAMINATION: XR CHEST CLINICAL INFORMATION: ams COMPARISON: Chest 03/03/2020 TECHNIQUE: Frontal view of the chest was obtained. FINDINGS: No significant abnormality is noted involving the heart, lungs, mediastinum, bony thorax or soft tissues. XR/XR chest 1V IMPRESSION: Unremarkable chest examination. Electronically signed by: Saad Olmstead MD 10/08/2024 02:[address] [facility]
[2024-10-08 12:08] VITALS: BP 118/78; BP 147/87; PULSE 110; PULSE 116; RESP 20; TEMP 36.5; O2SAT 96; O2SAT 97; BMI 34.5
--- NOTE | 2024-10-08 12:09 | ECG_ITS ---
Test Reason : TACHY Blood Pressure : / mmHG Vent. Rate : 103 BPM Atrial Rate : 103 BPM P-R Int : 154 ms QRS Dur : 094 ms QT Int : 358 ms P-R-T Axes : 064 022 045 degrees QTc Int : 468 ms Sinus tachycardia Possible Left atrial enlargement Borderline ECG When compared with ECG of 25-MAR-2024 07:30, No significant change was found Referred By: Christian Baltazar Electronically Signed By:PASTORA BRAVO MD
[2024-10-08 12:21] LABS: MANUAL DIFF FLAG NO
[2024-10-08 12:23] LABS: Basophils Absolute Auto 0.1 X10*3/uL (0.0-0.2); Basophils Percent Auto 0.8 % (0-2); Eosinophils Absolute Auto 0.1 X10*3/uL (0.0-0.4); Eosinophils Percent Auto 0.5 % (0-4); Hematocrit 51.1 % (42.0-52.0); Hemoglobin 18.1 g/dl (14.0-18.0); Imm Gran Abs Auto 0.06 X10*3/uL (0.00-0.03); Imm Gran Pct Auto 0.5 % (0.0-0.4); Lymphocytes Absolute Auto 1.7 X10*3/uL (1.2-4.9); Lymphocytes Percent Auto 14.3 % (20-40); Mean Corpuscular HGB Conc 35.4 g/dl (31.0-36.0); Mean Corpuscular Hemoglobin 29.7 pg (27.0-33.0); Mean Corpuscular Volume 83.9 fL (80.0-98.0); Mean Platelet Volume 9.8 fL (9.4-12.4); Monocytes Absolute Auto 0.9 X10*3/uL (0.1-1.2); Monocytes Percent Auto 7.2 % (2-11); Neutrophils Absolute Auto 9.1 x10*3/uL (2.0-8.3); Neutrophils Percent Auto 76.7 % (45-73); Platelet Count 294 X10*3/uL (160-400); Red Blood Count 6.09 X10*6/uL (4.60-5.80); Red Cell Distribution Width 13.9 % (11.0-16.0); White Blood Count 11.9 X10*3/uL (4.8-10.8)
--- NOTE | 2024-10-08 12:28 | PC.NURSE ---
Belongings in [employer] closet shelf 1
[2024-10-08 12:35] LABS: Anion Gap 15 (12-20); Blood Urea Nitrogen 15 mg/dL (9-16); Calcium 9.9 mg/dL (8.4-10.2); Carbon Dioxide 21 mmol/L (22-29); Chloride 108 mmol/L (96-108); Creatinine Clr Calc Pharmacy 71.9; Estimated Glomerular Filt Rate > 60; Glucose Random 81 mg/dL (60-115); Potassium 3.7 mmol/L (3.3-5.1); Sodium 140 mmol/L (135-145)
[2024-10-08 12:55] LABS: Alanine Aminotransferase 56 U/L (0-40); Albumin Level 4.9 g/dL (3.5-5.0); Alkaline Phosphatase 84 U/L (39-117); Aspartate Amino Transferase 43 U/L (5-37); Bilirubin Direct 0.3 mg/dL (0.0-0.5); Bilirubin Total 0.9 mg/dL (0.0-1.0); Total Protein 8.1 g/dL (6.5-8.0)
[2024-10-08 12:56] LABS: Troponin-I High Sensitivity < 2.7 ng/L (<3.5-35.0)
[2024-10-08 13:38] LABS: Influenza A PCR NEGATIVE (Negative); Influenza B PCR NEGATIVE (Negative); Resp Syncy Virus RNA Qual PCR NEGATIVE (Negative); SARS COV2 PCR INHOUSE NEGATIVE (Negative)
[2024-10-08 13:50] LABS: Appearance Urine Clear; Color Urine Dark Yellow; Glucose Urine UA Negative (Negative); Leukocyte Esterase Urine Negative (Negative); Nitrite Urine Negative (Negative); PH 5.5 (5.0-9.0); Specific Gravity - Urine >= 1.030 (1.005-1.025); UMIC TRIGGER UACC YES; Urine Blood Negative (Negative); Urine Ketones 80 mg/dL (Negative); Urine Protein 100 (2+) mg/dL (Neg-Trace)
[2024-10-08 13:56] LABS: Amphetamine Screen Urine Not Detected (Not Detect); Barbiturates, Urine Not Detected (Not Detect); Benzodiazepines Screen Urine Not Detected (Not Detect); Buprenorphine Scr Not Detected (Not Detect); Cannabinoid Screen Urine Not Detected (Not Detect); Cocaine Screen Urine Not Detected (Not Detect); Fentanyl, urine Not Detected (Not Detect); Methadone Screen, Urine Not Detected (Not Detect); Opiate Screen Urine Not Detected (Not Detect); Oxycodone Screen Urine Not Detected (Not Detect); Phencyclidine Screen Urine Not Detected (Not Detect)
[2024-10-08 13:59] LABS: Bacteria Urine None Seen (None Seen); RBC Urine 0-2 /HPF (0-2); Squamous Epithelial Cell Urine 0-2 /HPF (0-2); WBC Urine 0-5 /HPF (0-5)
--- NOTE | 2024-10-08 14:51 | ED_ITS ---
HPI - Psych General Chief Complaint: Psychiatric Symptoms Stated Complaint: SEC 12,?BED BUG BITES,UNABLE TO CARE FOR SELF Time Seen by Provider: 10/08/24 12:08 Source: patient and EMS History of Present Illness ED Provider: Delaney HPI Narrative: 69-year-old male with past medical history of insomnia presenting for hallucinations and failure to thrive. Patient was visited by a behavioral health team staff member who found the patient be disheveled and hallucinating. Patient also has diffuse excoriations edit result of him scratching. There is concern for bedbugs/scabies. Patient is alert and oriented however he states that he has not been able to sleep for weeks. Pt denies SI/HI and hallucinations however when not in active conversation with staff patient is witnessed to be speaking to self and inanimate objects Related Data Previous Rx's ?Medication ?Instructions ?Recorded tamsulosin 0.4 mg capsule (Flomax) 0.4 mg PO BEDTIME #90 caps 06/22/23 pyridoxine (vitamin B6) 50 mg 50 mg PO DAILY 90 days #90 tabs 09/20/23 tablet tadalafil 5 mg tablet 5 mg PO DAILY sexual activity 90 03/21/24 days #90 tabs hydroxyzine HCl 25 mg tablet 25 mg PO BEDTIME PRN insomnia 15 08/13/24 days #15 tabs Allergies Allergy/AdvReac Type Severity Reaction Status Date / Time No Known Allergies Allergy Verified 10/08/24 12:11 [No Known Allergies*] Review of Systems 2 Review of Systems: pt endorses insomnia Yes all other systems are reviewed and are negative PMFSH Past Medical History Medical History Erectile dysfunction due to arterial insufficiency Surgical History History of eye surgery Social History Social History Alcohol intake: never Smoked in Last 30 Days: No Use of substances other than those prescribed or required for medical reasons: No Advance Directives: No Advance Directives Information Provided: Yes Do you have a plan to hurt others: No Plan Physical Exam 2 Vital Signs: Vital Signs: Last Vital Signs Temp 97.7 F 10/08/24 12:08 Pulse 111 H 10/08/24 16:36 Resp 18 10/08/24 16:36 BP 125/89 10/08/24 16:36 Pulse Ox 95 10/08/24 16:36 O2 Del Method Room Air 10/08/24 16:36 BMI result Body Mass Index 34.5 well appearing although disheveled unlabored breathing with clear lung barragan [id number] rrr abd soft nontender diffuse excoriation and urticaria Medications Administered Discontinued Medications Generic Name Dose Route Start Last Admin Trade Name Donovan PRN Reason Stop Dose Admin Acetaminophen 650 mg 10/08/24 15:59 10/08/24 16:52 Acetaminophen 325 Mg Tablet PO 10/08/24 16:00 Not Given ONCE ONE Diphenhydramine HCl 25 mg 10/08/24 13:43 10/08/24 16:38 Diphenhydramine Hcl 25 Mg Capsule PO 10/08/24 13:44 25 mg ONCE ONE Administration Haloperidol Lactate 5 mg 10/08/24 17:42 10/08/24 18:00 Haloperidol Lactate 5 Mg/Ml Vial IM 10/08/24 17:43 5 mg ONCE ONE Administration Permethrin 1 appl 10/08/24 15:59 10/08/24 16:38 Permethrin 5 % Cream 60 Gm Tube TOPICAL 10/08/24 16:00 1 appl ONCE ONE Administration Protocol Medical Decision Making Medical Decision Making MDM Narrative: 69-year-old male presenting for rash and hallucinations. I am concerned for the following; failure to thrive, psychiatric illness, electrolyte/metabolic disturbance, bedbug/scabies -pt decontaminated -labs and imaging studies ordered -labs notable for hemoconcentration, electrolytes within normal limits, creatinine at baseline -benadryl and permethrin ordered -haldol ordered for persistent agitation Pt has been medically cleared for psych and consult care team placed Patient is so the patient here and pending care team recommendations. I will sign him out to the night provider Lab Data 10/08/24 12:16 10/08/24 12:16 Labs: Lab Results 10/08/24 10/08/24 10/08/24 Range/Units 12:16 12:53 13:37 WBC 11.9 H (4.8-10.8) X10*3/uL RBC 6.09 H (4.60-5.80) X10*6/uL Hgb 18.1 H (14.0-18.0) g/dl Hct 51.1 (42.0-52.0) % MCV 83.9 (80.0-98.0) fL MCH 29.7 (27.0-33.0) pg MCHC 35.4 (31.0-36.0) g/dl RDW 13.9 (11.0-16.0) % Plt Count 294 D (160-400) X10*3/uL MPV 9.8 (9.4-12.4) fL Immature Gran % (Auto) 0.5 H (0.0-0.4) % Neut % (Auto) 76.7 H (45-73) % Lymph % (Auto) 14.3 L (20-40) % [place] % (Auto) 7.2 (2-11) % Eos % (Auto) 0.5 (0-4) % Baso % (Auto) 0.8 (0-2) % Lymph # (Auto) 1.7 (1.2-4.9) X10*3/uL [place] # (Auto) 0.9 (0.1-1.2) X10*3/uL Eos # (Auto) 0.1 (0.0-0.4) X10*3/uL Baso # (Auto) 0.1 (0.0-0.2) X10*3/uL Abs Immat Gran (auto) 0.06 H (0.00-0.03) X10*3/uL Absolute Neuts (auto) 9.1 H (2.0-8.3) x10*3/uL Absolute Nucleated RBC 0.000 (0.0-0.012) X10*3/uL Nucleated RBC % (auto) 0.0 (0.0-0.2) /100WBC Sodium 140 (135-145) mmol/L Potassium 3.7 (3.3-5.1) mmol/L Chloride 108 (96-108) mmol/L Carbon Dioxide 21 L (22-29) mmol/L Anion Gap 15 (12-20) BUN 15 (9-16) mg/dL Creatinine 1.06 (0.5-1.4) mg/dL Estim Creat Clear Calc 71.9 Estimated GFR > 60 Random Glucose 81 (60-115) mg/dL Calcium 9.9 D (8.4-10.2) mg/dL Total Bilirubin 0.9 (0.0-1.0) mg/dL Direct Bilirubin 0.3 (0.0-0.5) mg/dL AST 43 H (5-37) U/L ALT 56 H (0-40) U/L Alkaline Phosphatase 84 (39-117) U/L Troponin I High Sens < 2.7 (<3.5-35.0) ng/L Total Protein 8.1 H (6.5-8.0) g/dL Albumin 4.9 (3.5-5.0) g/dL Urine Color Dark Yellow Urine Appearance Clear Urine pH 5.5 (5.0-9.0) Ur Specific [place] >= 1.030 H (1.005-1.025) Urine Protein 100 (2+) H (Neg-Trace) mg/dL Urine Glucose (UA) Negative (Negative) mg/dL Urine Ketones 80 (Negative) mg/dL Urine Blood Negative (Negative) Urine Nitrite Negative (Negative) Ur Leukocyte Esterase Negative (Negative) Urine RBC 0-2 (0-2) /HPF Urine WBC 0-5 (0-5) /HPF Ur Squamous Epith Cells 0-2 (0-2) /HPF Urine Bacteria None Seen (None Seen) Hyaline Casts 3-5 (0-2) /LPF Urine Opiates Screen Not Detected (Not Detect) Ur Buprenorphine Scrn Not Detected (Not Detect) ng/mL Ur Oxycodone Screen Not Detected (Not Detect) ng/mL Urine Methadone Screen Not Detected (Not Detect) ng/mL Urine Fentanyl Screen Not Detected (Not Detect) Ur Barbiturates Screen Not Detected (Not Detect) Ur Phencyclidine Scrn Not Detected (Not Detect) Ur Amphetamines Screen Not Detected (Not Detect) U Benzodiazepines Scrn Not Detected (Not Detect) Urine Cocaine Screen Not Detected (Not Detect) U Marijuana (THC) Screen Not Detected (Not Detect) Influenza Type A (PCR) NEGATIVE (Negative) Influenza Type B (PCR) NEGATIVE (Negative) RSV RNA Qual (PCR) NEGATIVE (Negative) SARS-CoV-2 RNA (RT-PCR) NEGATIVE (Negative) Discharge Plan Discharge Clinical Impression: Hallucinations, Itching Patient Disposition: Still a Patient Prescriptions: No Action tamsulosin [Flomax] 0.4 mg capsule 0.4 mg PO BEDTIME Qty: 90 0RF pyridoxine (vitamin B6) 50 mg tablet 50 mg PO DAILY 90 Days Qty: 90 1RF tadalafil 5 mg tablet 5 mg PO DAILY 90 Days Qty: 90 0RF hydroxyzine HCl 25 mg tablet 25 mg PO BEDTIME PRN (Reason: insomnia) 15 Days Qty: 15 0RF Interventions: [place]-Suicide Risk Severity Scale Last Done: 10/08/24 12:12 Print Language: Yoruba
--- NOTE | 2024-10-08 15:41 | MHC.CARE ---
Pt's sister Naomi Oneil whom is also his HCP (not invoked) called to provide collateral information regarding Pt. She reported that Pt has had mental health concerns since approximately 1981. She stated he experiences AH and that he says that people tell him to say bizarre things and ask inappropriate questions. She stated the other day at the [employer] he was laughing out loud-responding to internal stimuli, and sticking his tongue out in a bizarre manner. He was reportedly asking his sister if she had to kill her or a stranger who would she kill. 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 He was in the [facility] [place] in the , went AWOL and was missing for months until found in a motel in [place] with almost no food, not caring for himself. He came addicted to crack cocaine in the and eventually got sober around [id number]. Naomi reported Pt has suffered from severe depression his entire life however has no HX of suicide attempts. He has been wearing the same clothes since May; drained his bank account gambling, and is not caring for himself. He recently impulsively took a train to [place] in June because he thought he could jimenez on his lap top better there; gave away his phone and was stranded. After a stranger helped him his sister was able to pick him up. She is highly concerned he will be discharged and stated he goes missing for long periods of time.
--- NOTE | 2024-10-08 16:03 | MHC.CARE ---
Naomi, Pt's sister and HCP can be reached at [phone]
[2024-10-08 16:36] VITALS: BP 125/89; PULSE 111; RESP 18; O2SAT 95
[2024-10-08] MEDS: Permethrin 5 % Cream 60 GM TUBE 1 APPL TOPICAL (16:38)
[2024-10-08] MEDS: diphenhydrAMINE HCL 25 MG CAPSULE PO (16:38)
--- NOTE | 2024-10-08 16:49 | PC.NURSE ---
pt attempted to cheek his tylenol and benadryl. pt spat the tylenol into the toilet after stating he could not take it. pt did appear to take his benadryl
--- NOTE | 2024-10-08 17:53 | PC.NURSE ---
pt continues to run out of his room into other pt areas. pt with apparent infestation with scabies given rash to SAÚL arms, trunk and legs, itching, open in some areas. pt informed that he is a section 12 pending CARE team eval and that he cannot leave the room. pt continues to attempt to leave the room. Request made for IM medication given pts hx with not tolerating PO meds well.
[2024-10-08] MEDS: Haloperidol Lactate 5 MG/ML VIAL IM (18:00)
[2024-10-09 00:27] VITALS: RESP 18
[2024-10-09 05:23] VITALS: BP 133/95; PULSE 103; RESP 18; TEMP 36.5; O2SAT 96
[2024-10-09 08:12] VITALS: BP 134/87; PULSE 116; RESP 16; O2SAT 95
--- NOTE | 2024-10-09 08:39 | PC.NURSE ---
Care of Pt assumed at change of shift. 1:1 sitter present and contact precautions in place. Pt is observed resting comfortably with eye closed. IPLOC (bed search) awaiting placement.
--- NOTE | 2024-10-09 10:02 | PC.NURSE ---
Spoke with Care Team re: plan of care. Per CT, Pt is a candidate for a [facility] admission. More information regarding room availability should be know around/after lunch time. If no room available, CT plans to meet with Pt to reassess. Pt resting quietly in room with lights dimmed. 1:1 sitting present and contact precautions in place. Dispo pending.
--- NOTE | 2024-10-09 12:55 | PHA.MEDREC ---
Addendum entered by Scar Shin 10/09/24 13:11: reviewed Original Note: Pharmacy Consult ? Medication Reconciliation Pharmacy has completed the medication reconciliation. Spoke with patients sister over the phone and she was not sure what the patient was taking for medications but isn't sure what he is really taking at the moment. She stated she is confident the patient is not taking any medications at this time but does not know when he last took them. 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 I also asked about the Vitamin B6 and she stated she does not think the patient is not taking any OTC medications right now. I called patients pharmacy and they confirmed he last got the Hydroxyzine 25mg tab filled 08/23 for 15 days as needed for insomnia. I asked about the Vitamin B6 and Tamsulosin 0.4mg tabs and they stated they have no past claims for those medications being filled for at least a year. The pharmacy did confirm he picked up Tadalafil 5mg tabs 08/13 for 90 days. I updated the list from what patients pharmacy confirmed with me.
[2024-10-09 18:00] VITALS: RESP 19
[2024-10-09 20:52] VITALS: BP 139/71; PULSE 100; RESP 16; TEMP 36.4; O2SAT 98
--- NOTE | 2024-10-10 02:30 | PC.NURSE ---
this rn assumed care of pt, pt resting in stretcher, no acute distress noted. 1:1 sitter at bedside for safety.
[2024-10-10 05:59] VITALS: BP 121/89; PULSE 99; RESP 18; TEMP 37.1; O2SAT 95
--- NOTE | 2024-10-10 06:03 | PC.NURSE ---
pt awake and alert at this time, pt offers no complaints, no distress noted, 1:1 sitter at bedside.
--- NOTE | 2024-10-10 07:25 | MHC.EDTECH ---
pt awake and alert at this time, on precautions for scabies, 1:1 sitter at bedside, seen running down hallway to get a coffee, security present to assist escorting him back to his room. coffee provided for him
--- NOTE | 2024-10-10 08:31 | PC.NURSE ---
Pt cooperative however impulsive and noted talking to self at times. Bolting out of room numerous times but redirectable verbally. Further treatment given as charted and pt to be moved to POD, remains maryana bedsearch. Steady on feet.
--- NOTE | 2024-10-10 08:56 | PC.NURSE ---
patient attempting to place chair on bed to look out window. multiple attempts to educate patient on keeping chair on floor unsuccessfully. chair removed from room and placed behind nurses station
[2024-10-10 14:30] VITALS: BP 102/73; PULSE 108; RESP 18; TEMP 36.6; O2SAT 93
--- NOTE | 2024-10-10 19:36 | PC.NURSE ---
patient seated in common area self dialoguing at times redirectable in good spitirs able to let his wishes be known
[2024-10-10] MEDS: Melatonin 3 MG TABLET 6 MG PO (19:56)
[2024-10-10 20:07] VITALS: BP 128/90; PULSE 104; RESP 18; TEMP 36.9; O2SAT 97
--- NOTE | 2024-10-10 22:27 | PC.NURSE ---
patient appears restless, self dialogues in milieu.
[2024-10-10] MEDS: QUEtiapine Fumarate 50 MG TABLET PO (22:45)
[2024-10-11] MEDS: diphenhydrAMINE HCL 25 MG CAPSULE 50 MG PO (00:48)
[2024-10-11] MEDS: chlorproMAZINE HCl 100 MG TABLET PO (02:11)
--- NOTE | 2024-10-11 02:13 | PC.NURSE ---
consulted provider regarding patient heading to restroom q hour and self dialoguing, seeking out more information if symptoms have increased since arrival. patient actively self dialoguing in room, gesturing in air. t/w will relay to oncoming regarding perhaps follow up labs in am to check electrolytes
--- NOTE | 2024-10-11 02:54 | PC.NURSE ---
patient back out to bathroom again. asked again for medicine which t/w reiterated its been 30 some odd minutes since last administration
--- NOTE | 2024-10-11 03:36 | PC.NURSE ---
patient asks for sleep meds again, back from bathroom
--- NOTE | 2024-10-11 05:35 | PC.NURSE ---
longer duration between trips to rest room. also within last hour asked about legal status-if he was sectioned here. seemingly he may feel the perception is he was tricked by his sister
[2024-10-11 06:25] VITALS: BP 101/73; PULSE 110; RESP 18; TEMP 36.8; O2SAT 95
--- NOTE | 2024-10-11 08:03 | PC.NURSE ---
patient has gone to the bathroom x2 in the last 30min, will perform a post void bladder scan
[2024-10-11 09:32] LABS: MANUAL DIFF FLAG NO
[2024-10-11 09:35] LABS: Basophils Absolute Auto 0.1 X10*3/uL (0.0-0.2); Basophils Percent Auto 0.9 % (0-2); Eosinophils Absolute Auto 0.1 X10*3/uL (0.0-0.4); Eosinophils Percent Auto 1.4 % (0-4); Hematocrit 45.7 % (42.0-52.0); Hemoglobin 16.5 g/dl (14.0-18.0); Imm Gran Abs Auto 0.04 X10*3/uL (0.00-0.03); Imm Gran Pct Auto 0.5 % (0.0-0.4); Lymphocytes Absolute Auto 2.3 X10*3/uL (1.2-4.9); Lymphocytes Percent Auto 27.2 % (20-40); Mean Corpuscular HGB Conc 36.1 g/dl (31.0-36.0); Mean Corpuscular Hemoglobin 29.9 pg (27.0-33.0); Mean Corpuscular Volume 82.9 fL (80.0-98.0); Mean Platelet Volume 9.8 fL (9.4-12.4); Monocytes Absolute Auto 0.8 X10*3/uL (0.1-1.2); Neutrophils Absolute Auto 5.2 x10*3/uL (2.0-8.3); Platelet Count 213 X10*3/uL (160-400); Red Blood Count 5.51 X10*6/uL (4.60-5.80); Red Cell Distribution Width 13.9 % (11.0-16.0); White Blood Count 8.6 X10*3/uL (4.8-10.8)
[2024-10-11 09:47] LABS: Anion Gap 14 (12-20); Blood Urea Nitrogen 15 mg/dL (9-16); Calcium 9.7 mg/dL (8.4-10.2); Carbon Dioxide 25 mmol/L (22-29); Chloride 104 mmol/L (96-108); Creatinine Clr Calc Pharmacy 68.7; Estimated Glomerular Filt Rate > 60; Glucose Random 106 mg/dL (60-115); Potassium 3.5 mmol/L (3.3-5.1); Sodium 139 mmol/L (135-145)
--- NOTE | 2024-10-11 12:09 | PC.NURSE ---
report given to veronica solano on s1
--- NOTE | 2024-10-11 13:07 | PC.NURSE ---
Pt. arrived on unit via WC at 12:40 accompanied by 2 RNs. Changeover with contraband search and skin assmt. completed. Pt. with rash and scratches shirley UE's and LE's. He states extremities have been itching for ~ 2 weeks. Pt. treated with oral and topical insecticides in ED. He lives alone in an apartment and his sister/HCP contacted EMs to bring him to the ED when he presented as decompensated and not caring for himself. Pt. oriented to person, place, time, and vaguely to situation, but lacks insight and presents as disheveled, disorganized and with a flight of ideas. Pt. pleasant and cooperative with admission process and signed CV. He states that sister/HCP is aware of his admission. He is ambulatory without assistive devices and continent.
[2024-10-11 13:23] LABS: Alanine Aminotransferase 62 U/L (0-40); Albumin Level 4.3 g/dL (3.5-5.0); Alkaline Phosphatase 93 U/L (39-117); Anion Gap 16 (12-20); Aspartate Amino Transferase 71 U/L (5-37); Bilirubin Total 0.4 mg/dL (0.0-1.0); Blood Urea Nitrogen 15 mg/dL (9-16); Calcium 9.4 mg/dL (8.4-10.2); Carbon Dioxide 23 mmol/L (22-29); Chloride 103 mmol/L (96-108); Estimated Glomerular Filt Rate > 60; Glucose Random 159 mg/dL (60-115); Potassium 3.6 mmol/L (3.3-5.1); Sodium 138 mmol/L (135-145); Total Protein 7.1 g/dL (6.5-8.0)
[2024-10-11 19:28] VITALS: BP 137/71; PULSE 96; TEMP 36.3; O2SAT 97
[2024-10-11] MEDS: hydrOXYzine HCL 25 MG TABLET PO (20:49)
[2024-10-11] MEDS: traZODone HCL 50 MG TABLET PO (20:49)
[2024-10-11] MEDS: OLANZapine 2.5 MG TABLET PO (20:49)
[2024-10-12] MEDS: OLANZapine 2.5 MG TABLET PO (02:47)
[2024-10-12] MEDS: hydrOXYzine HCL 25 MG TABLET PO ×2 (02:47→20:00)
--- NOTE | 2024-10-12 08:42 | HO.PSYADMNOT ---
[facility] Date of Service: 10/12/24 Chief Complaint: Psychosis Sources of Information: patient interviewed, chart reviewed and crisis/core team assessment reviewed Additional Sources of Information: Naomi- [phone] [facility] Subjective Notes: Valentin Warning (given and shows understanding) and Section 12B Narrative: Mr. Jade is a 69 year-old male who was brought via EMS after he was assessed by [facility] in the community. Pt apparently has not taken a shower since May nor has changed his clothes. Per sister, pt's apartment is in very deplorable conditions, with toilet never flushed dishes dirty for months. Pt had been talking to someone who is not there. Sister also reports he has been obsessed with finding any woman to have sex with. Sister reports she has been notified by the banking management consulting manager of larger amounts of money that he is trying to withdraw from the his bank which she suspects is to give to people and she worries that she may be target of financial scam. Sister reports she has also been contacted by apartment management as pt has been knocking at neighbors doors asking for a phone. In the ED, utox was negative. CBC mostly unremarkable. CMP with no electrolyte abnormalities. BUN 15, Cr 1.03, creatinine clearance 75. UA without signs of UTI, but positive for >100 protein. On the unit, pt presents as restless. He asks this commercial insurance underwriter if he can go today prior to starting meeting. He asks why he was brought to the hospital against his will, which this commercial insurance underwriter explained above concerns. Pt reports he does not hear voices but he pretend there are two people in the room and we talk. When asked about what does he talk about, he states things like how to find the next sexual partner. He reports he has a plan to reach out to a drug dealer and ask them to connect him with a woman with substance use issues so that he can buy cocaine and give it to her and they can give him sex in return. He reports he is sure no woman would have sex with him unless he pays for it and thinks that if it is a woman with substance use then he would have a better chance to have sex. He goes on to say that he has a small and soft penis. He says that if his plan does not work, then he will use cocaine which he reports he has not used in 20 years. While meeting with this commercial insurance underwriter, he kept turning to the side and talking to someone who was not there. He denied SI/HI. He reports he had OP psych tx but not in about 10 years. He reports he used to be on olanzapine but he gained weight and did not like it. He appears disheveled and unkept. He reports he takes money out to give to women. He denies buying cocaine recently. Past Psychiatric History: INpt: none in the past OP: [facility]- more than 9 years ago. Past medication trials: olanzapine Medical Evaluation Reviewed: Yes [facility] Medical History Erectile dysfunction due to arterial insufficiency Surgical History History of eye surgery Family History: none Social History: Never . 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 His level of functioning drastically declined. Hx of paranoia and psychosis. He has 3 siblings. Mother . Substance History: Hx of cocaine use. He has not used in more than 20 years. Trauma History: denies Diagnostics Vital Signs (24Hr): Vital Signs - 24 hr 10/11/24 19:28 Temperature 97.4 F Pulse Rate 96 Blood Pressure 137/71 Pulse Oximetry 97 Oxygen Delivery Method Room Air BMI result Body Mass Index 34.5 Labs 10/11/24 09:27 10/11/24 13:03 Labs: Laboratory Results - last 48 hr 10/11/24 10/11/24 09:27 13:03 WBC 8.6 RBC 5.51 Hgb 16.5 Hct 45.7 MCV 82.9 MCH 29.9 MCHC 36.1 H RDW 13.9 Plt Count 213 D MPV 9.8 Immature Gran % (Auto) 0.5 H Neut % (Auto) 61.0 Lymph % (Auto) 27.2 [place] % (Auto) 9.0 Eos % (Auto) 1.4 Baso % (Auto) 0.9 Lymph # (Auto) 2.3 [place] # (Auto) 0.8 Eos # (Auto) 0.1 Baso # (Auto) 0.1 Abs Immat Gran (auto) 0.04 H Absolute Neuts (auto) 5.2 Absolute Nucleated RBC 0.000 Nucleated RBC % (auto) 0.0 Sodium 139 138 Potassium 3.5 3.6 Chloride 104 103 Carbon Dioxide 25 23 Anion Gap 14 16 BUN 15 15 Creatinine 1.11 1.03 Estim Creat Clear Calc 68.7 74.0 Estimated GFR > 60 > 60 Random Glucose 106 159 H Calcium 9.7 9.4 Total Bilirubin 0.4 AST 71 H ALT 62 H Alkaline Phosphatase 93 Total Protein 7.1 Albumin 4.3 Imaging Radiology Impressions: ITS Impressions Chest X-Ray 10/08/24 12:40 IMPRESSION: Unremarkable chest examination. Electronically signed by: Saad Olmstead MD 10/08/2024 02:07 PM [facility] Meds/Allergies Allergies Allergies Allergy/AdvReac Type Severity Reaction Status Date / Time No Known Allergies Allergy Verified 10/08/24 12:11 [No Known Allergies*] Mental Status Exam Mental Status Exam Narrative: Appearance: wearing hospital gown, poor hygiene, unkept hair and slater. in NAD Behavior: somewhat guarded, superficially cooperative Psychomotor: no agitation or retardation noted Speech: mostly clear, normal rate/rhythm/volume, spontaneous TP: tangential, no loose association TC: finding women to have sex through drug dealer Mood: good Affect: constricted SI: denies HI: denies VH/AH although denies appears internally preoccupied, having conversation with someone who is not there. Delusions: he has sexually preoccupations, some suspiciousness. Insight/judgment: impaired x 2. Memory/cog: alert oriented x 3. not to situation. no formal testing completed. Assessment & Plan Assessment & Plan (1) Schizophrenia: Status: Acute Code(s): F20.9 - Schizophrenia, unspecified Assessment and Plan: versus schizoaffective bipolar type Plan Mr. Jade is a 69 year-old male who was brought via EMS after being assessed by [facility]. He has been presenting with increased psychosis, hearing things that others can't hear, preoccupied with finding women to have sex and putting himself in potentially dangerous situation such as attempting to contact drug dealer to find women who have addiction issues. In addition, he has not showered nor change clothes (per his report and sister) since May. His apartment is in deplorable condition. We discussed risks, benefits and alternative treatment options. He agreed to start risperidone. I started him on topamax as he had reported some cravings of cocaine- but may need different mood stabilizer for hypersexual behaviors. PLAN 1. Admit to S1, sect 12b, 5 minutes checks for safety 2. Start risperidone 1mg po BID, topamax 25mg po BID. 3. aftercare planning. Patient educated on: diagnosis, medication risk/benefits and substance abuse Reason for continued inpatient stay Substantial Risk for: inability to function Statement Statement: I have reviewed the history and physical and performed a pertinent examination on my patient. No changes have occurred unless specified. If the History and Physical was not performed prior to admission, the Hospitalist's service will be consulted for completing the admission physical. Time Spent With Patient Time: Total time managing care of this patient today ____ minutes.
[2024-10-12 10:05] VITALS: BP 159/74; PULSE 90; RESP 18; TEMP 36.6; O2SAT 94
[2024-10-12] MEDS: Topiramate 25 MG TABLET PO ×2 (10:30→20:00)
[2024-10-12] MEDS: risperiDONE 1 MG TABLET PO ×2 (10:30→20:00)
[2024-10-12 20:00] VITALS: BP 140/84; PULSE 104; RESP 18; TEMP 36.2; O2SAT 95
[2024-10-12] MEDS: traZODone HCL 50 MG TABLET PO ×2 (20:00→22:35)
[2024-10-12] MEDS: OLANZapine 10 MG TABLET PO (20:00)
[2024-10-13 07:31] LABS: Cholesterol 139 mg/dL (<200); HDL Cholesterol 51 mg/dL (>40); LDL Cholesterol Calculated 38 mg/dL (<100); Triglycerides 250 mg/dL (<150)
[2024-10-13 08:29] VITALS: BP 133/82; PULSE 105; RESP 18; TEMP 36.4; O2SAT 96
[2024-10-13] MEDS: Topiramate 25 MG TABLET PO ×2 (08:39→20:06)
[2024-10-13] MEDS: hydrOXYzine HCL 25 MG TABLET PO ×2 (08:39→23:47)
[2024-10-13] MEDS: risperiDONE 1 MG TABLET PO ×2 (08:39→20:06)
--- NOTE | 2024-10-13 09:41 | P.PNPSI_ITS ---
Subjective Subjective Date of Service: 10/13/24 Reason For Visit: Psychosis Subjective Notes: Conditional Voluntary Interim History: For patient is good with Nursing. Slept for 3 hours last night. Very focused on sleep. With filing writer states he is eager for discharge in that sleep has been terrible. Clearly understood Section 12. Wanted to communicate he was not a danger to himself, others and that he is able to care for himself. Was unable to appreciate what other people were concerned about return to living conditions prior to admission. [place] he was being cared for in the hospital. Has been attending groups. Regarding sleep, will try Ambien 5 mg as patient reports this was helpful many years ago 1 medications such as Zyprexa Medication Compliance: Yes Side effects from medications: No Attending Groups: Yes Review of Systems Acute medical concerns: No Review of Systems Review of Systems unremarkable Mental Status Exam Mental Status Exam Narrative: Appearance: wearing hospital gown, poor hygiene, unkept hair and slater. in NAD Behavior: superficially cooperative Psychomotor: no agitation or retardation noted Speech: mostly clear, normal rate/rhythm/volume, spontaneous TP: tangential TC: focused on sleep Mood: good Affect: constricted SI: denies HI: denies VH/AH denies Delusions: nothing over Insight/judgment: impaired x 2. Memory/cog: alert oriented x 3. not to situation. no formal testing completed. Diagnostics Vital Signs (24Hr): Vital Signs - 24 hr 10/12/24 10:05 10/12/24 20:00 10/13/24 08:29 Temperature 97.9 F 97.1 F 97.6 F Pulse Rate 90 104 H 105 H Respiratory Rate 18 18 18 Blood Pressure 159/74 H 140/84 H 133/82 Pulse Oximetry 94 95 96 Oxygen Delivery Method Room Air Room Air Room Air BMI result Body Mass Index 34.5 Labs 10/11/24 09:27 10/11/24 13:03 Labs: Laboratory Results - last 48 hr 10/11/24 10/11/24 10/13/24 09:27 13:03 07:06 Sodium 139 138 Potassium 3.5 3.6 Chloride 104 103 Carbon Dioxide 25 23 Anion Gap 14 16 BUN 15 15 Creatinine 1.11 1.03 Estim Creat Clear Calc 68.7 74.0 Estimated GFR > 60 > 60 Random Glucose 106 159 H Calcium 9.7 9.4 Total Bilirubin 0.4 AST 71 H ALT 62 H Alkaline Phosphatase 93 Total Protein 7.1 Albumin 4.3 Triglycerides 250 H Cholesterol 139 LDL Cholesterol, Calc 38 HDL Cholesterol 51 Imaging Radiology Impressions: ITS Impressions Chest X-Ray 10/08/24 12:40 IMPRESSION: Unremarkable chest examination. Electronically signed by: Saad Olmstead MD 10/08/2024 02:07 PM [facility] Medications Medications Current Medications Acetaminophen (Acetaminophen 325 Mg Tablet) 650 mg PO Q6H PRN PRN Reason: Headache/Pain Mild Scale (1-3) Al Hydroxide/Mg Hydroxide (Magnesium Hydrox/Alum Hydrox 30 Ml Oral.Susp) 30 ml PO Q6H PRN PRN Reason: Heartburn/Nausea Hydroxyzine HCl (Hydroxyzine Hcl 25 Mg Tablet) 25 mg PO Q6H PRN PRN Reason: Anxiety Last Admin: 10/13/24 08:39 Dose: 25 mg Magnesium Hydroxide (Milk Of Magnesia 30 Ml Oral.Susp) 30 ml PO DAILY PRN PRN Reason: Constipation Olanzapine (Olanzapine 10 Mg Tablet) 10 mg PO Q6H PRN PRN Reason: Psychosis/agitation Last Admin: 10/12/24 20:00 Dose: 10 mg Risperidone (Risperidone 1 Mg Tablet) 1 mg PO BID [facility] Last Admin: 10/13/24 08:39 Dose: 1 mg Topiramate (Topiramate 25 Mg Tablet) 25 mg PO BID [facility] Last Admin: 10/13/24 08:39 Dose: 25 mg Trazodone HCl (Trazodone Hcl 50 Mg Tablet) 50 mg PO BEDTIME MRX1 PRN PRN Reason: Insomnia Last Admin: 10/12/24 22:35 Dose: 50 mg Allergies Allergies Allergy/AdvReac Type Severity Reaction Status Date / Time No Known Allergies Allergy Verified 10/08/24 12:11 [No Known Allergies*] Assessment & Plan Assessment & Plan (1) Schizophrenia: Status: Acute Code(s): F20.9 - Schizophrenia, unspecified Assessment and Plan: versus schizoaffective bipolar type Plan Mr. Jade is a 69 year-old male who was brought via EMS after being assessed by [facility]. He has been presenting with increased psychosis, hearing things that others can't hear, preoccupied with finding women to have sex and putting himself in potentially dangerous situation such as attempting to contact drug dealer to find women who have addiction issues. In addition, he has not showered nor change clothes (per his report and sister) since May. His apartment is in deplorable condition. We discussed risks, benefits and alternative treatment options. He agreed to start risperidone. I started him on topamax as he had reported some cravings of cocaine- but may need different mood stabilizer for hypersexual behaviors. PLAN 1. Admit to S1, sect 12b, 5 minutes checks for safety 2. Start risperidone 1mg po BID, topamax 25mg po BID. 3. aftercare planning. 10/13/2024: Will trial Ambien 5 mg for very poor sleep Reason for continued inpatient stay Substantial Risk for: inability to function and rapid decompensation Time Spent With Patient Time: Total time managing care of this patient today ____ minutes.
[2024-10-13] MEDS: Flu Vacc TS2024-25(6mos up)/PF 0.5 ML SYRINGE IM (14:36)
[2024-10-13 20:00] VITALS: BP 133/83; PULSE 100; RESP 18; TEMP 36.1; O2SAT 95
[2024-10-13] MEDS: OLANZapine 10 MG TABLET PO (20:06)
[2024-10-13] MEDS: traZODone HCL 100 MG TABLET PO ×2 (20:06→23:47)
[2024-10-13] MEDS: Zolpidem Tartrate 5 MG TABLET PO (20:06)
--- NOTE | 2024-10-14 08:25 | HO.PSYCHPN ---
Subjective Subjective Date of Service: 10/14/24 Reason For Visit: Psychosis Medical Problems Affecting Mental Status: No Interim History: Slept much better last night with ambien 5mg. Educated on ambien being short term medication in hospital and only for nighttime use. Remains eager for discharge. Still highlighting believes he is not a danger to himself, others and that he is able to care for himself. Some group attendance Medication Compliance: Yes Side effects from medications: No Attending Groups: Intermittent Review of Systems Acute medical concerns: No Review of Systems Review of Systems unremarkable Mental Status Exam Mental Status Exam Narrative: Appearance: wearing hospital gown, poor hygiene, unkept hair and slater. in NAD Behavior: superficially cooperative Psychomotor: no agitation or retardation noted Speech: mostly clear, normal rate/rhythm/volume, spontaneous TP: tangential TC: focused on discharge Mood: good Affect: constricted SI: denies HI: denies VH/AH denies Delusions: nothing over Insight/judgment: impaired x 2. Memory/cog: alert oriented x 3. not to situation. no formal testing completed. Diagnostics Vital Signs (24Hr): Vital Signs - 24 hr 10/13/24 08:29 10/13/24 20:00 Temperature 97.6 F 97 F Pulse Rate 105 H 100 Respiratory Rate 18 18 Blood Pressure 133/82 133/83 Pulse Oximetry 96 95 Oxygen Delivery Method Room Air Room Air BMI result Body Mass Index 34.5 Labs 10/11/24 09:27 10/11/24 13:03 Labs: Laboratory Results - last 48 hr 10/13/24 07:06 Triglycerides 250 H Cholesterol 139 LDL Cholesterol, Calc 38 HDL Cholesterol 51 Imaging Radiology Impressions: ITS Impressions Chest X-Ray 10/08/24 12:40 IMPRESSION: Unremarkable chest examination. Electronically signed by: Saad Olmstead MD 10/08/2024 02:07 PM [facility] Medications Medications Current Medications Acetaminophen (Acetaminophen 325 Mg Tablet) 650 mg PO Q6H PRN PRN Reason: Headache/Pain Mild Scale (1-3) Al Hydroxide/Mg Hydroxide (Magnesium Hydrox/Alum Hydrox 30 Ml Oral.Susp) 30 ml PO Q6H PRN PRN Reason: Heartburn/Nausea Hydroxyzine HCl (Hydroxyzine Hcl 25 Mg Tablet) 25 mg PO Q6H PRN PRN Reason: Anxiety Last Admin: 10/13/24 23:47 Dose: 25 mg Magnesium Hydroxide (Milk Of Magnesia 30 Ml Oral.Susp) 30 ml PO DAILY PRN PRN Reason: Constipation Olanzapine (Olanzapine 10 Mg Tablet) 10 mg PO Q6H PRN PRN Reason: Psychosis/agitation Last Admin: 10/13/24 20:06 Dose: 10 mg Risperidone (Risperidone 1 Mg Tablet) 1 mg PO BID [facility] Last Admin: 10/13/24 20:06 Dose: 1 mg Topiramate (Topiramate 25 Mg Tablet) 25 mg PO BID [facility] Last Admin: 10/13/24 20:06 Dose: 25 mg Trazodone HCl (Trazodone Hcl 100 Mg Tablet) 100 mg PO BEDTIME MRX1 PRN PRN Reason: Insomnia Last Admin: 10/13/24 23:47 Dose: 100 mg Zolpidem Tartrate (Zolpidem Tartrate 5 Mg Tablet) 5 mg PO BEDTIME [facility] Last Admin: 10/13/24 20:06 Dose: 5 mg Allergies Allergies Allergy/AdvReac Type Severity Reaction Status Date / Time No Known Allergies Allergy Verified 10/08/24 12:11 [No Known Allergies*] Assessment & Plan Assessment & Plan (1) Schizophrenia: Status: Acute Code(s): F20.9 - Schizophrenia, unspecified Assessment and Plan: versus schizoaffective bipolar type Plan Mr. Jade is a 69 year-old male who was brought via EMS after being assessed by [facility]. He has been presenting with increased psychosis, hearing things that others can't hear, preoccupied with finding women to have sex and putting himself in potentially dangerous situation such as attempting to contact drug dealer to find women who have addiction issues. In addition, he has not showered nor change clothes (per his report and sister) since May. His apartment is in deplorable condition. We discussed risks, benefits and alternative treatment options. He agreed to start risperidone. I started him on topamax as he had reported some cravings of cocaine- but may need different mood stabilizer for hypersexual behaviors. PLAN 1. Admit to S1, sect 12b, 5 minutes checks for safety 2. Start risperidone 1mg po BID, topamax 25mg po BID. 3. aftercare planning. 10/13/2024: Will trial Ambien 5 mg for very poor sleep 10/14/24: sleeping better. Educated on ambien being short term medication in hospital and only for nighttime use Reason for continued inpatient stay Substantial Risk for: inability to function and rapid decompensation Time Spent With Patient Time: Total time managing care of this patient today ____ minutes.
[2024-10-14 08:45] VITALS: BP 171/81; PULSE 106; RESP 18; TEMP 36.3; O2SAT 96
[2024-10-14] MEDS: risperiDONE 1 MG TABLET PO ×2 (08:47→20:16)
[2024-10-14] MEDS: Topiramate 25 MG TABLET PO ×2 (08:47→20:16)
[2024-10-14] MEDS: hydrOXYzine HCL 25 MG TABLET PO (14:23)
[2024-10-14 20:00] VITALS: BP 133/71; PULSE 102; RESP 20; TEMP 36.1; O2SAT 96
[2024-10-14] MEDS: Zolpidem Tartrate 5 MG TABLET PO (20:16)
[2024-10-15] MEDS: hydrOXYzine HCL 25 MG TABLET PO ×3 (02:16→17:00)
[2024-10-15 07:39] VITALS: BP 124/82; PULSE 95; RESP 18; TEMP 36.4; O2SAT 98
[2024-10-15] MEDS: OLANZapine 10 MG TABLET PO (08:06)
[2024-10-15] MEDS: Topiramate 25 MG TABLET PO ×2 (08:06→20:28)
[2024-10-15] MEDS: risperiDONE 1 MG TABLET PO ×2 (08:06→20:27)
--- NOTE | 2024-10-15 14:55 | P.PNPSI_ITS ---
Subjective Subjective Date of Service: 10/15/24 Reason For Visit: Psychosis Subjective Notes: Section 12B Interim History: Pt slept about 7hrs. No behavioral concerns over the weekend. He showered. less self dialoguing, but still internally preoccupied. No SI/HI. minimal insight into symptoms and need for ongoing tx but has agreed to [place] of risperidone, Uzedy. He also agreed to be referred to psychiatrist and therapist. Medication Compliance: Yes Side effects from medications: No Review of Systems Review of Systems unremarkable Yes all other systems are reviewed and are negative Mental Status Exam Mental Status Exam Narrative: Appearance: wearing hospital gown, poor hygiene, unkept hair and slater. in NAD Behavior: superficially cooperative Psychomotor: no agitation or retardation noted Speech: mostly clear, normal rate/rhythm/volume, spontaneous TP: tangential TC: focused on discharge Mood: good Affect: constricted SI: denies HI: denies VH/AH denies Delusions: nothing over Insight/judgment: impaired x 2. Memory/cog: alert oriented x 3. not to situation. no formal testing completed. Diagnostics Vital Signs (24Hr): Vital Signs - 24 hr 10/14/24 20:00 10/15/24 07:39 Temperature 96.9 F 97.6 F Pulse Rate 102 H 95 Respiratory Rate 20 18 Blood Pressure 133/71 124/82 Pulse Oximetry 96 98 Oxygen Delivery Method Room Air Room Air BMI result Body Mass Index 34.5 Labs 10/11/24 09:27 10/11/24 13:03 Imaging Radiology Impressions: ITS Impressions Chest X-Ray 10/08/24 12:40 IMPRESSION: Unremarkable chest examination. Electronically signed by: Saad Olmstead MD 10/08/2024 02:07 PM [facility] Medications Medications Current Medications Acetaminophen (Acetaminophen 325 Mg Tablet) 650 mg PO Q6H PRN PRN Reason: Headache/Pain Mild Scale (1-3) Al Hydroxide/Mg Hydroxide (Magnesium Hydrox/Alum Hydrox 30 Ml Oral.Susp) 30 ml PO Q6H PRN PRN Reason: Heartburn/Nausea Hydroxyzine HCl (Hydroxyzine Hcl 25 Mg Tablet) 25 mg PO Q6H PRN PRN Reason: Anxiety Last Admin: 10/15/24 08:06 Dose: 25 mg Magnesium Hydroxide (Milk Of Magnesia 30 Ml Oral.Susp) 30 ml PO DAILY PRN PRN Reason: Constipation Olanzapine (Olanzapine 10 Mg Tablet) 10 mg PO Q6H PRN PRN Reason: Psychosis/agitation Last Admin: 10/15/24 08:06 Dose: 10 mg Risperidone (Risperidone 1 Mg Tablet) 1 mg PO BID [facility] Last Admin: 10/15/24 08:06 Dose: 1 mg Topiramate (Topiramate 25 Mg Tablet) 25 mg PO BID [facility] Last Admin: 10/15/24 08:06 Dose: 25 mg Trazodone HCl (Trazodone Hcl 100 Mg Tablet) 100 mg PO BEDTIME MRX1 PRN PRN Reason: Insomnia Last Admin: 10/13/24 23:47 Dose: 100 mg Zolpidem Tartrate (Zolpidem Tartrate 5 Mg Tablet) 5 mg PO BEDTIME [facility] Last Admin: 10/14/24 20:16 Dose: 5 mg Allergies Allergies Allergy/AdvReac Type Severity Reaction Status Date / Time No Known Allergies Allergy Verified 10/08/24 12:11 [No Known Allergies*] Assessment & Plan Assessment & Plan (1) Schizophrenia: Status: Acute Code(s): F20.9 - Schizophrenia, unspecified Assessment and Plan: versus schizoaffective bipolar type Plan Mr. Jade is a 69 year-old male who was brought via EMS after being assessed by [facility]. He has been presenting with increased psychosis, hearing things that others can't hear, preoccupied with finding women to have sex and putting himself in potentially dangerous situation such as attempting to contact drug dealer to find women who have addiction issues. In addition, he has not showered nor change clothes (per his report and sister) since May. His apartment is in deplorable condition. We discussed risks, benefits and alternative treatment options. He agreed to start risperidone. I started him on topamax as he had reported some cravings of cocaine- but may need different mood stabilizer for hypersexual behaviors. PLAN 1. Admit to S1, sect 12b, 5 minutes checks for safety 2. Start risperidone 1mg po BID, topamax 25mg po BID. 3. aftercare planning. 10/13/2024: Will trial Ambien 5 mg for very poor sleep 10/14/24: sleeping better. Educated on ambien being short term medication in hospital and only for nighttime use 10/15 ordered Uzedy 50mg IM q monthly. Reason for continued inpatient stay Substantial Risk for: inability to function Time Spent With Patient Time: Total time managing care of this patient today ____ minutes.
[2024-10-15 19:48] VITALS: BP 150/78; PULSE 94; TEMP 37.3; O2SAT 96
[2024-10-15] MEDS: Zolpidem Tartrate 5 MG TABLET PO (20:28)
[2024-10-16 08:37] LABS: HBS Num1 72.41 mIU/mL (0-7.99); HBc Num1 6.23 S/CO (0.00-0.79); HBsAGNum1 0.34 S/CO (0.00-0.99); Hepatitis A Antibody IgM 0.12 Index (0-0.79); Hepatitis B Surface Antigen Negative (Negative); ~HepC Num1 0.06 S/CO (0.00-0.79); ~Hepatitis A Antibody IgM Nonreactive (Nonreactive); ~Hepatitis B Surface Antibody REACTIVE (Nonreactive); ~Hepatitis C Antibody Nonreactive (Nonreactive)
[2024-10-16 08:42] LABS: HIV AB/AG Nonreactive (Nonreactive); HIV Num 1 0.05 S/CO (0.00-0.99)
[2024-10-16 09:06] VITALS: BP 137/82; PULSE 101; RESP 20; TEMP 36.6; O2SAT 96
[2024-10-16] MEDS: Topiramate 25 MG TABLET PO (09:07)
[2024-10-16] MEDS: risperiDONE 1 MG TABLET PO (09:07)
[2024-10-16 10:41] LABS: HBc Num2 6.04 S/CO; HBc Num3 6.24 S/CO; Hepatitis B Core Antibody Reactive (Nonreactive)
[2024-10-16] MEDS: risperiDONE ER 50 MG/0.14 ML SUSER.SYR SUBCUT (11:27)
--- NOTE | 2024-10-16 12:38 | P.DS_ITS ---
DS: Providers Provider Date of Service: 10/16/24 Date of admission: 10/11/24 11:23 Date of discharge: 10/16/24 Primary care physician: Woo Ugarte PA-C Consults: 10/15/24 14:57 Consult to Infectious Diseases Routine Consulting Provider: [facility] Reason for consultation: rash bilat forearms Has provider been notified: Yes Discharging clinician: Clarita Pardo DS: Diagnosis Discharge Diagnosis (1) Schizophrenia: Status: Acute DS: Medications Discharge Medications Home Medications: Previous Rx's ?Medication ?Instructions ?Recorded risperidone 50 mg/0.14 mL 50 mg (0.14 mL) subcut QMONTH 10/16/24 subcutaneous extend release susp #0.14 mL syringe topiramate 50 mg tablet 50 mg PO BID #60 tabs 10/16/24 trazodone 100 mg tablet 100 mg PO BEDTIME PRN Insomnia #30 10/16/24 tabs zolpidem 5 mg tablet 5 mg PO BEDTIME #15 tabs 10/16/24 Mental Status Exam Mental Status Exam Narrative: Appearance: wearing casual clothing, improved hygiene. in NAD Behavior: superficially cooperative Psychomotor: no agitation or retardation noted Speech: mostly clear, normal rate/rhythm/volume, spontaneous TP: tangential TC: focused on discharge Mood: good Affect: constricted SI: denies HI: denies VH/AH: residual hallucinations Delusions:some bizarre association related to voices that he hears, hypersexual and some paranoid ideas. Insight/judgment: improving x 2. Memory/cog: alert oriented x 3. Data Data Completed and Pending Completed studies during hospitalization [Text1]: 10/11/24 10/11/24 10/13/24 09:27 13:03 07:06 WBC 8.6 RBC 5.51 Hgb 16.5 Hct 45.7 MCV 82.9 MCH 29.9 MCHC 36.1 H RDW 13.9 Plt Count 213 D MPV 9.8 Immature Gran % (Auto) 0.5 H Neut % (Auto) 61.0 Lymph % (Auto) 27.2 [place] % (Auto) 9.0 Eos % (Auto) 1.4 Baso % (Auto) 0.9 Lymph # (Auto) 2.3 [place] # (Auto) 0.8 Eos # (Auto) 0.1 Baso # (Auto) 0.1 Abs Immat Gran (auto) 0.04 H Absolute Neuts (auto) 5.2 Absolute Nucleated RBC 0.000 Nucleated RBC % (auto) 0.0 Sodium 139 138 Potassium 3.5 3.6 Chloride 104 103 Carbon Dioxide 25 23 Anion Gap 14 16 BUN 15 15 Creatinine 1.11 1.03 Estim Creat Clear Calc 68.7 74.0 Estimated GFR > 60 > 60 Random Glucose 106 159 H Calcium 9.7 9.4 Total Bilirubin 0.4 AST 71 H ALT 62 H Alkaline Phosphatase 93 Total Protein 7.1 Albumin 4.3 Triglycerides 250 H Cholesterol 139 LDL Cholesterol, Calc 38 HDL Cholesterol 51 RPR Titer RPR Hepatitis A IgM Ab Hep Bs Antigen Hep Bs Antibody Hep B Core Total Ab Hep B Core IgM Ab Hepatitis C Ab (EIA) HIV 1&2 Ab/P24 Ag 4thGn 10/15/24 10/15/24 15:26 15:27 WBC RBC Hgb Hct MCV MCH MCHC RDW Plt Count MPV Immature Gran % (Auto) Neut % (Auto) Lymph % (Auto) [place] % (Auto) Eos % (Auto) Baso % (Auto) Lymph # (Auto) [place] # (Auto) Eos # (Auto) Baso # (Auto) Abs Immat Gran (auto) Absolute Neuts (auto) Absolute Nucleated RBC Nucleated RBC % (auto) Sodium Potassium Chloride Carbon Dioxide Anion Gap BUN Creatinine Estim Creat Clear Calc Estimated GFR Random Glucose Calcium Total Bilirubin AST ALT Alkaline Phosphatase Total Protein Albumin Triglycerides Cholesterol LDL Cholesterol, Calc HDL Cholesterol RPR Titer Pending RPR Pending Hepatitis A IgM Ab Nonreactive Hep Bs Antigen Negative Hep Bs Antibody REACTIVE Hep B Core Total Ab Reactive Hep B Core IgM Ab Cancelled Hepatitis C Ab (EIA) Nonreactive HIV 1&2 Ab/P24 Ag 4thGn Nonreactive Imaging Diagnostic Imaging Impressions Chest X-Ray 10/08/24 12:40 IMPRESSION: Unremarkable chest examination. Electronically signed by: Saad Olmstead MD 10/08/2024 02:07 PM [facility] DS: Summary Hospital Course Hospital Course: Subjective Notes: [place] Warning (given and shows understanding) and Section 12B Narrative: Mr. Jade is a 69 year-old male who was brought via EMS after he was assessed by [facility] in the community. Pt apparently has not taken a shower since May nor has changed his clothes. Per sister, pt's apartment is in very deplorable conditions, with toilet never flushed dishes dirty for months. Pt had been talking to someone who is not there. Sister also reports he has been obsessed with finding any woman to have sex with. Sister reports she has been notified by the personal banking officer of larger amounts of money that he is trying to withdraw from the his bank which she suspects is to give to people and she worries that she may be target of financial scam. Sister reports she has also been contacted by apartment management as pt has been knocking at neighbors doors asking for a phone. In the ED, utox was negative. CBC mostly unremarkable. CMP with no electrolyte abnormalities. BUN 15, Cr 1.03, creatinine clearance 75. UA without signs of UTI, but positive for >100 protein. On the unit, pt presents as restless. He asks this selling underwriter if he can go today prior to starting meeting. He asks why he was brought to the hospital against his will, which this selling underwriter explained above concerns. Pt reports he does not hear voices but he pretend there are two people in the room and we talk. When asked about what does he talk about, he states things like how to find the next sexual partner. He reports he has a plan to reach out to a drug dealer and ask them to connect him with a woman with substance use issues so that he can buy cocaine and give it to her and they can give him sex in return. He reports he is sure no woman would have sex with him unless he pays for it and thinks that if it is a woman with substance use then he would have a better chance to have sex. He goes on to say that he has a small and soft penis. He says that if his plan does not work, then he will use cocaine which he reports he has not used in 20 years. While meeting with this selling underwriter, he kept turning to the side and talking to someone who was not there. He denied SI/HI. He reports he had OP psych tx but not in about 10 years. He reports he used to be on olanzapine but he gained weight and did not like it. He appears disheveled and unkept. He reports he takes money out to give to women. He denies buying cocaine recently. Past Psychiatric History: INpt: none in the past OP: [facility]- more than 9 years ago. Past medication trials: olanzapine Medical Evaluation Reviewed: Yes HOSPITAL COURSE Time Spent with Patient Time attestation: Total time managing care of this patient today ____ minutes. Discharge Plan Discharge Anticipated Discharge Date/Time: 10/16/24 12:12 Patient Disposition: Home, Self-Care Discharge Diagnosis: schizophrenia Referrals: Woo Ugarte PA-C [Primary Care Provider] - 10/30/24 10:45 am (You are scheduled to see Dr. Ugarte on Tuesday10/30/24 at 10:45a. ) Lizbet Gomez APRN [Nurse Practitioner] - 11/02/24 11:00 am (A referral has been made for you at [facility]. They have yet reached out with appointments so we will bridge the gap by letting you see Marion Gomez at [facility]. Your appointment will be 11/02 at 11:00 AM in [address]. If you have any questions or need to cancel the appointment please call the number listed.) Discharge Medications: New risperidone 50 mg/0.14 mL suspension,extended rel syring 50 mg subcut QMONTH Qty: 0.14 1RF topiramate 50 mg tablet 50 mg PO BID Qty: 60 0RF trazodone 100 mg Tablet 100 mg PO BEDTIME PRN (Reason: Insomnia) Qty: 30 0RF zolpidem 5 mg Tablet 5 mg PO BEDTIME Qty: 15 0RF Discontinued tadalafil 5 mg tablet 5 mg PO DAILY 90 Days Qty: 90 0RF Discharge Orders: Discharge Order (Routine); Ordered 10/16/24 Ordered By: Clarita Pardo Diet: Regular diet Activity on Discharge: As tolerated Stand Alone Forms: Patient Portal Discharge page Print Language: Indonesian Care Plan Goals: 1. Maintain mood 2. No SI/HI 3. less AH/VH 4. no aggression towards self or others Health Concerns: Follow up with PCP for elevated LFTs, routine care Plan of Treatment: 1. Take medications as prescribed. 2. go to nearest ED or call 911 in event of emergency Assessment: Pt with somewhat of expansive mood. Less psychosis, but still residual. No SI/HI. Sleeping well. No aggression towards self or others.
--- NOTE | 2024-10-16 14:11 | PC.NURSE ---
Pt. alert and oriented. Reports readiness for discharge. Denies anxiety, depression, SI, HI, and perceptual disturbances. Discharge instructions and medications reviewed. Pt. given information on homeless shelters if he is unable to stay in his apartment. Pt. verbalized understanding of all of above. Pt. ambulated off unit at 13:53 accompanied by this RN to discharge lounge to await ride home from [facility] service.
[2024-10-16 15:05] LABS: RPR Rapid Plasma Reagin NON-REACTIVE (NON-REACTIVE)
== END 2024-10-16 13:53 | disposition home or self-care (01) | DRG 885 ==
LOC: HO.ED 10-11 11:05 → HO.PGERI 10-11 11:29
PROVIDERS: Emergency Medicine; Social Worker; Admitting Provider Psychiatry & Neurology Psychiatry; Emergency Provider Student in an Organized Health Care Education/Training Program; PCP Physician Assistant; Visit Provider Psychiatry & Neurology Psychiatry
DX: F20.9 Schizophrenia, unspecified (principal); Z23 Encounter for immunization; Z87.891 Personal history of nicotine dependence; Z79.899 Other long term (current) drug therapy
CPT/HCPCS: 0241U; 36415; 71045; 80048; 80053; 80061; 80076; 80307; 81001; 84484; 85025; 86592; 86704; 86706; 86709; 86803; 87340; 87389; 90656; 93005; 99285; J1630; J2799; S9485

== ENCOUNTER → 2024-10-08 12:09 | Outpatient (BNV) | payer MEDICARE, SELFPAY | PROVIDERS: Emergency Provider Student in an Organized Health Care Education/Training Program; Visit Provider Internal Medicine Cardiovascular Disease | DX: R00.0 Tachycardia, unspecified (principal); R94.31 Abnormal electrocardiogram [ECG] [EKG] | CPT/HCPCS: 93010 ==

== ENCOUNTER → 2024-10-08 12:40 | Outpatient (BNV) | payer MEDICARE, SELFPAY | PROVIDERS: Emergency Provider Student in an Organized Health Care Education/Training Program; Visit Provider Radiology Diagnostic Radiology | DX: R41.82 Altered mental status, unspecified (principal) | CPT/HCPCS: 71045 ==

== ENCOUNTER → 2024-10-11 11:23 | Outpatient (BNV) | payer MEDICARE, SELFPAY | PROVIDERS: Admitting Provider Psychiatry & Neurology Psychiatry; Emergency Provider Student in an Organized Health Care Education/Training Program; PCP Physician Assistant; Visit Provider Social Worker | DX: F20.9 Schizophrenia, unspecified (principal) | CPT/HCPCS: 90792; 99231; 99232 ==

== ENCOUNTER 2024-10-17 13:40 | Emergency (ER) | payer MEDICARE, SELFPAY ==
--- NOTE | 2024-10-17 13:48 | ED_ITS ---
HPI - Abdominal Pain General Stated Complaint: Kidney Stones Can't Sleep Related Data Previous Rx's ?Medication ?Instructions ?Recorded risperidone 50 mg/0.14 mL 50 mg (0.14 mL) subcut QMONTH 10/16/24 subcutaneous extend release susp #0.14 mL syringe topiramate 50 mg tablet 50 mg PO BID #60 tabs 10/16/24 trazodone 100 mg tablet 100 mg PO BEDTIME PRN Insomnia #30 10/16/24 tabs zolpidem 5 mg tablet 5 mg PO BEDTIME #15 tabs 10/16/24 Allergies Allergy/AdvReac Type Severity Reaction Status Date / Time No Known Allergies Allergy Verified 10/08/24 12:11 [No Known Allergies*] [facility] Past Medical History Medical History Erectile dysfunction due to arterial insufficiency Surgical History History of eye surgery Social History Social History Household Members: None Housing: Apartment Do you presently have visiting nurse or other home services: No Alcohol intake: never Patient Tobacco Use Status: Former Tobacco user Tobacco use type: Cigarette e-Cigarette/Vaping Use: Never Used Second Hand Smoke Exposure: Yes Substance Use Type: Crack/Cocaine service: No Sexual orientation: Straight/Heterosexual Course Course Course Narrative: This is a Rapid Medical Exam performed in triage by Cydney Huertas PA-C. Full HPI, ROS and PE to be performed by primary ED provider. 69-year-old male with a past medical history of schizophrenia, erectile dysfunction, nephrolithiasis, presenting to the ED c/o PE: Plan: Discharge Plan Discharge Prescriptions: No Action risperidone 50 mg/0.14 mL suspension,extended rel syring 50 mg subcut QMONTH Qty: 0.14 1RF topiramate 50 mg tablet 50 mg PO BID Qty: 60 0RF trazodone 100 mg Tablet 100 mg PO BEDTIME PRN (Reason: Insomnia) Qty: 30 0RF zolpidem 5 mg Tablet 5 mg PO BEDTIME Qty: 15 0RF Print Language: Nepali
== END 2024-10-17 14:26 | disposition left against medical advice (07) ==
PROVIDERS: Emergency Provider Emergency Medicine Emergency Medical Services
DX: N20.0 Calculus of kidney (principal)

== ENCOUNTER 2024-10-17 17:50 | Emergency (ER) | payer MEDICARE, SELFPAY ==
[2024-10-17 18:33] VITALS: BP 140/95; PULSE 109; RESP 20; TEMP 36.9; O2SAT 95; BMI 32.0
--- NOTE | 2024-10-17 18:34 | ED_ITS ---
HPI - General Adult General Chief complaint: General Medical Stated complaint: Insomnia Time Seen by Provider: 10/17/24 23:41 Related Data Previous Rx's ?Medication ?Instructions ?Recorded risperidone 50 mg/0.14 mL 50 mg (0.14 mL) subcut QMONTH 10/16/24 subcutaneous extend release susp #0.14 mL syringe topiramate 50 mg tablet 50 mg PO BID #60 tabs 10/16/24 trazodone 100 mg tablet 100 mg PO BEDTIME PRN Insomnia #30 10/16/24 tabs zolpidem 5 mg tablet 5 mg PO BEDTIME #15 tabs 10/16/24 Allergies Allergy/AdvReac Type Severity Reaction Status Date / Time No Known Allergies Allergy Verified 10/18/24 08:03 [No Known Allergies*] [facility] Past Medical History Medical History Erectile dysfunction due to arterial insufficiency Surgical History History of eye surgery Social History Social History Household Members: None Housing: Apartment Do you presently have visiting nurse or other home services: No Alcohol intake: never Patient Tobacco Use Status: Former Tobacco user Tobacco use type: Cigarette e-Cigarette/Vaping Use: Never Used Second Hand Smoke Exposure: Yes Substance Use Type: Crack/Cocaine Advance Directives: No Advance Directives Information Provided: Yes service: No Sexual orientation: Straight/Heterosexual Physical Exam ED Vital Signs: BMI result Body Mass Index 32.0 Course Course Course Narrative: This is a Rapid Medical Exam performed in triage by Cydney Huertas PA-C. Full HPI, ROS and PE to be performed by primary ED provider. 69-year-old male with a past medical history of schizophrenia, nephrolithiasis presenting to the ED c/o insomnia, states has to be in bed for 25 hours prior to being able to fall asleep. Requesting prescription for Ambien. Patient presented to the ED earlier today andf LTW'd. Discharged from upstairs Psychiatry yesterday. denies hallucinations PE: ambulating w/steady gait, nontoxic appearing, acting appropriate Plan: [facility] Discharge Plan Discharge Clinical Impression: Insomnia Patient Disposition: Left W/O Completing Treatment Prescriptions: No Action risperidone 50 mg/0.14 mL suspension,extended rel syring 50 mg subcut QMONTH Qty: 0.14 1RF topiramate 50 mg tablet 50 mg PO BID Qty: 60 0RF trazodone 100 mg Tablet 100 mg PO BEDTIME PRN (Reason: Insomnia) Qty: 30 0RF zolpidem 5 mg Tablet 5 mg PO BEDTIME Qty: 15 0RF Discharge Date/Time: 10/18/24 00:04
--- NOTE | 2024-10-18 00:02 | PC.NURSE ---
Pt not in treatment room at this time. Pt LWCT.
== END 2024-10-18 00:04 | disposition left against medical advice (07) ==
PROVIDERS: Emergency Provider Emergency Medicine
DX: G47.00 Insomnia, unspecified (principal)
CPT/HCPCS: 99281

== ENCOUNTER 2024-10-26 04:35 | Emergency (ER) | payer MEDICARE, SELFPAY ==
[2024-10-26 04:46] VITALS: BP 128/76; PULSE 89; RESP 17; TEMP 36.5; O2SAT 95; BMI 36.6
== END 2024-10-26 06:30 | disposition left against medical advice (07) ==
PROVIDERS: Emergency Provider Emergency Medicine
DX: G47.00 Insomnia, unspecified (principal); Z53.21 Procedure and treatment not carried out due to patient leaving prior to being seen by health care provider
CPT/HCPCS: 99281

== ENCOUNTER 2024-10-26 08:38 | Emergency (ER) | payer MEDICARE, SELFPAY ==
[2024-10-26 08:42] VITALS: BP 136/80; PULSE 84; RESP 20; TEMP 36.5; O2SAT 96; BMI 36.7
--- NOTE | 2024-10-26 11:36 | ED.GENADULT ---
HPI - General Adult General Chief complaint: General Medical Stated complaint: cant sleep Time Seen by Provider: 10/26/24 10:52 History of Present Illness HPI narrative: Patient with psychiatric history and history of insomnia schizophrenia comes to the ER saying that he can not sleep and he is out of his Ambien prescription He denies any suicidal thoughts he is not hearing voices he has no hallucinations he has no wish to harm anyone he denies using drugs or alcohol and says the only issue is sleep He denies any pain or recent illness Related Data Previous Rx's ?Medication ?Instructions ?Recorded risperidone 50 mg/0.14 mL 50 mg (0.14 mL) subcut QMONTH 10/16/24 subcutaneous extend release susp #0.14 mL syringe topiramate 50 mg tablet 50 mg PO BID #60 tabs 10/16/24 trazodone 100 mg tablet 100 mg PO BEDTIME PRN Insomnia #30 10/16/24 tabs zolpidem 5 mg tablet 5 mg PO BEDTIME #15 tabs 10/16/24 zolpidem 5 mg tablet 5 mg PO BEDTIME PRN sleep #7 tabs 10/26/24 Allergies Allergy/AdvReac Type Severity Reaction Status Date / Time No Known Allergies Allergy Verified 10/26/24 08:46 [No Known Allergies*] [facility] Past Medical History Source: nursing notes reviewed Medical History Erectile dysfunction due to arterial insufficiency Surgical History History of eye surgery Social History Social History Household Members: None Housing: Apartment Do you presently have visiting nurse or other home services: No Alcohol intake: never Patient Tobacco Use Status: Former Tobacco user Tobacco use type: Cigarette e-Cigarette/Vaping Use: Never Used Second Hand Smoke Exposure: Yes Substance Use Type: Crack/Cocaine Advance Directives: Yes Advance Directives Information Provided: Yes Advance Directives on File: No service: No Sexual orientation: Straight/Heterosexual Physical Exam ED Vital Signs: Vital Signs - 24 hr 10/26/24 08:42 Temperature 97.7 F Pulse Rate 84 Respiratory Rate 20 Blood Pressure 136/80 Pulse Oximetry 96 Oxygen Delivery Method Room Air BMI result Body Mass Index 36.7 General appearance calm cooperative no acute distress Head normocephalic atraumatic Pupils equal round reactive to light extraocular motions are intact Neck is supple Respiratory no distress Abdomen soft nontender Extremities full range motion x4 Neuro gait and balance are normal, interaction comprehension and expression are normal Course Course Course Narrative: I reviewed old records from his last admission and he had received scripts for risperidone topiramate trazodone and zolpidem He has appointment scheduled for next week with both psych and primary care I refilled 1 week of 5 mg zolpidem 7 tablets and made sure he is aware of his upcoming appointments and he says he knows about him and knows where to go and went Discharge Plan Discharge Clinical Impression: Insomnia Patient Disposition: Home, Self-Care Additional Instructions: I wrote you for 7 more days of Ambien But future prescriptions need to come from primary care or Psychiatry I looked in the notes and you have an appointment with physician speech language pathology assistant Jaswinder Ugarte at [facility] for primary care on October 30Tuesday You have an appointment on November 02Tuesday at [facility] [address] at 11:00 with Lizbet Mendez for psychiatric care Return any time for suicidal thoughts any worse condition any concerns Prescriptions: New zolpidem 5 mg tablet 5 mg PO BEDTIME PRN (Reason: sleep) Qty: 7 0RF No Action risperidone 50 mg/0.14 mL suspension,extended rel syring 50 mg subcut QMONTH Qty: 0.14 1RF topiramate 50 mg tablet 50 mg PO BID Qty: 60 0RF trazodone 100 mg Tablet 100 mg PO BEDTIME PRN (Reason: Insomnia) Qty: 30 0RF zolpidem 5 mg Tablet 5 mg PO BEDTIME Qty: 15 0RF Interventions: ED Discharge Assessment Last Done: 10/26/24 11:50 Print Language: Kiswahili
[2024-10-26 11:50] VITALS: BP 136/80; PULSE 84; RESP 20; TEMP 36.5; O2SAT 96
== END 2024-10-26 11:53 | disposition home or self-care (01) ==
PROVIDERS: Emergency Provider Emergency Medicine
DX: G47.00 Insomnia, unspecified (principal); F20.9 Schizophrenia, unspecified; Z87.891 Personal history of nicotine dependence
CPT/HCPCS: 99281; 99282; 99283

== ENCOUNTER 2024-10-30 12:58 | Outpatient (AMB) | payer MEDICARE, SELFPAY ==
--- NOTE | 2024-10-30 13:03 | A.OFFPC_ITS ---
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 Transferring care from [facility]. Medical records have not been requested and have not received. Disciplinary Hearing Officer Required: No Technical Spec: Not Required per policy Accompanied by: Self / Same As Patient Allergies No Known Allergies [No Known Allergies*] Allergy (Verified 11/02/24 05:37) Medication List - Last Reconciled 10/30/24 by NAWAF Mai risperidone ER 50 mg (0.14 mL) subcut QMONTH topiramate 50 mg PO BID trazodone 100 mg PO BEDTIME PRN zolpidem 5 mg PO BEDTIME zolpidem 5 mg PO BEDTIME PRN Tobacco use date assessed: 10/30/24 Fall risk assessment: No Falls in past year Last assessed Fall Risk: 10/30/24 Dental Screening Dental Screen Date: 10/30/24 Did you have a dental visit in the last 12 months?: No Did you have a dental problem in the last 6 months where you did not have access to dental care?: No Was dental information given to patient?: Patient has dentist 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 Details The patient is a 69 year old male with significant past medical history of schizophrenia, erectile dysfunction due to arterial insufficiency, nephrolithiasis The patient is presenting today with complaints of insomnia and med request for Ambien The patient reported that he has trouble sleeping so he went to [facility] They gave him 15 Ambien 5 mg, he reports that he was taking one at night in one in the daytime because he had nothing to do Reports that he went back to [facility] after running out of medication and they refused to give him more As a result he went to [facility] and they gave him 10 more pills of Ambien but increased it to 10 mg yesterday The patient reports that he only have 8 pills left. Discussed with patient that he should have 9 tabs left He replied that he took one this morning as well. Discussed that he is completely mismanaging his medication Encouraged the patient to follow up back psychiatry Encouraged proper sleep hygiene [facility] Medical History Erectile dysfunction due to arterial insufficiency Surgical History History of eye surgery Family History Other Mental health disorder Social History Household Members: None Housing: Apartment Do you presently have visiting nurse or other home services: No Alcohol intake: never Patient Tobacco Use Status: Former Tobacco user Tobacco use type: Cigarette e-Cigarette/Vaping Use: Never Used Second Hand Smoke Exposure: Yes Substance Use Type: Crack/Cocaine service: No Current occupational status: retired Sexual orientation: Straight/Heterosexual Cognitive needs: No Hearing needs: No Vision needs: No Questionnaire PHQ-9 Over the last 2 weeks, how often have you been bothered by any of the following problems? 1. Little interest or pleasure in doing things: several days 2. Feeling down, depressed, or hopeless: several days (has therapist) 3. Trouble falling or staying asleep, or sleeping too much: nearly every day 4. Feeling tired or having little energy: several days 5. Poor appetite or overeating: not at all 6. Feeling bad about yourself - or that you are a failure or have let yourself or your family down: nearly every day 7. Trouble concentrating on things, such as reading the newspaper or watching television: not at all 8. Moving or speaking so slowly that other people could have noticed. Or the opposite - being so fidgety or restless that you have been moving around a lot more than usual: not at all 9. Thoughts that you would be better off or of hurting yourself in some way: not at all Total score: 9 Depression Screening Interpretation: Positive Depression Screening Done: Yes 13580 - PHQ-9 Billing: Yes Source: Developed by Drs. Nadeem Abdullahi, Charo Jade, Kenroy Sohrt and colleagues, with an educational tai from [employer]. Thrive Questionnaire Date Thrive assessed: 10/30/24 I am a: Patient What is your living situation today?: I have a steady place to live Within the past 12 months, did the food you bought not last and you didn't have the money to get more?: Never true Within the past 12 months, did you worry whether your food would run out before you got money to buy more?: Never true Do you have trouble paying for medicines?: No Do you have trouble getting transportation to medical appointments?: No Do you have trouble paying your heating and electricity bill?: No Do you have trouble taking care of your child, family member or friend?: No Do you have trouble with day-to-day activities such as bathing, preparing meals, shopping, managing finances, etc.?: No Are you currently unemployed and looking for a job?: No Are you interested in more education?: No Please select the resources that you would like help with: None Currently or been in a relationship where the following occur: No concerns reported THRIVE Score: 0 AUDIT C Alcohol Use Questionnaire (AUDIT-C) 1. How often do you have a drink containing alcohol?: Never Total Score: 0 Score Reviewed/Action Taken: Yes TAHMINA-7 AMB Questionnaire TAHMINA-7 Date TAHMINA - 7 assessed: 10/30/24 Feeling nervous, anxious, or on edge: 1 = Several days (Has therapist) Not being able to stop or control worryin = Several days Worrying too much about different things: 1 = Several days Trouble relaxin = Several days Being so restless that it is hard to sit still: 0 = Not at all Becoming easily annoyed or irritable: 1 = Several days Feeling afraid as if something awful might happen: 1 = Several days Total TAHMINA-7 score (0-4 normal; 5-9 mild; 10-14 moderate; 15-21 severe): 6 Source: Developed by Drs. Nadeem Abdullahi, Charo Jade, Kenroy Short and colleagues, with an educational tai from [employer]. TAHMINA-7 Assessment Billing TAHMINA-7 Assessment Tool: TAHMINA-7 Assessment 41388 Review of Systems Const Details: Denies chills, Denies fatigue, Denies fever(s), Denies headache(s) and Denies weakness HEENT Denies change in vision, Denies dizziness, Denies headache(s), Denies hearing loss, Denies nasal congestion, Denies sinus pain, Denies sinus pressure and Denies sore throat Card Denies chest pain, Denies lightheadedness, Denies dyspnea and Denies other (palpitations) Resp Denies cough, Denies dyspnea and Denies wheezing GI Denies abdominal pain, Denies melena, Denies hematochezia, Denies change in bowel habits, Denies dyspepsia and Denies nausea Denies hematuria and Denies dysuria Musc Denies abnormal gait, Denies myalgias, Denies arthralgias, Denies numbness and Denies tingling Skin/Breast Denies rash, Denies unusual bruising and Denies wounds Neuro Denies abnormal gait, Denies dizziness, Denies headache(s), Denies memory loss, Denies numbness, Denies Sensory deficit (Neuro), Denies tingling and Denies weakness Psych reports insomnia, reports anxiety, reports depression and Denies memory loss Endo Denies cold intolerance, Denies fatigue, Denies heat intolerance, Denies polydipsia and Denies polyuria Carlos Alberto/Lymph Denies easy bleeding and Denies easy bruising Aller/Immun Denies wheezing Physical exam (Primary Care) Vital Signs: Last Vital Signs Temp 96.9 F 10/30/24 13:05 Pulse 102 H 10/30/24 13:05 BP 110/76 10/30/24 13:05 Pulse Ox 95 10/30/24 13:05 Oxygen Delivery Method Room Air 10/30/24 13:05 BMI result Body Mass Index 34.2 Tobacco/Smoking Status: Tobacco use Status Tobacco use date assessed 10/30/24 10/30/24 13:18 Patient Tobacco Use Status Former Tobacco user 10/30/24 13:18 Tobacco use type Cigarette 10/30/24 13:18 e-Cigarette/Vaping Use Never Used 10/30/24 13:18 PHQ-9: PHQ-9 Score PHQ-9: Total score 9 10/30/24 21:18 Depression Screening Interpretation: Positive Thrive Assessment: Date of Thrive Assessment Date Thrive assessed 10/30/24 10/30/24 13:18 Currently or been in a relationship where the following occur: No concerns repor jewels Const Other: General: no acute distress, well developed, alert and awake Nutritional Appearance: well nourished Orientation/consciousness: patient oriented x3 HENMT Head: Yes normocephalic and Yes atraumatic Ears: hearing grossly normal bilaterally and TM's normal bilaterally Eyes Pupils: Equal, round and reactive pupils present and Pupil accommodation reflex normal EOM: EOMs intact bilaterally Neck Neck: Yes normal visual inspection Thyroid: Thyroid normal Lymphatic: no lymphadenopathy noted Chest Chest palpation & inspection: normal inspection of the chest Resp Effort & Inspection: normal respiratory effort Auscultation: clear to auscultation bilaterally Cardio Rate: regular rate Rhythm: regular rhythm Heart sounds: S1 normal heart sound present, S2 normal heart sound present, no gallops, no murmurs and no rubs GI Palpation (GI): abdomen soft, rounded and nontender to palpation Auscultation: normal bowel sounds General: Yes no CVA tenderness Back/Spine/Pelvis Back: no CVA tenderness Cervical Spine: cervical ROM normal and No Cervical spine tenderness Thoracic/Lumbar Spine: thoraco-lumbar ROM normal, No pain with thoraco-lumbar ROM, No thoracic spinal tenderness and No lumbar spinal tenderness Skin General: warm and dry. Normal skin color. Normal skin turgor Lesions: no lesions Rashes: no rashes Trauma: no lacerations or abrasions Wounds: no wounds Nails: normal Neuro General: patient oriented x3, gait normal Cranial nerves: Yes Equal, round and reactive pupils present Cognition (Neuro): normal cognition Gait exam (Neuro): Normal gait present Motor exam (neuro): 5/5 motor strength present throughout Extrem General: Yes normal to inspection, No edema and No calf tenderness Psych Appearance: grossly normal Affect: normal affect Attitude: cooperative Thought process: Normal thought process present Office Procedures Flu Questionnaire Does the patient have a severe egg allergy?: No Does the patient have severe life threatening allergies?: No Does the patient have a fever or illness today?: No Has the patient ever had Guillain-[place] Syndrome?: No Has the patient ever had any past reaction to a flu shot?: No Immunizations Fluarix Triv 3820-0456 (PF) 45 mcg (15 mcg x 3)/0.5 mL IM syringe Performing Provider: NAWAF Mai [facility] Administered by: Suzanne Jordan LPN on 10/30/24 13:35 Dose Route Admin Location Dispensed Lot Number Expiration Date [facility] 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 0.5 mL IM Left Deltoid 0.5 mL [id number] 04/08/25 [id number] [employer] VIS Given Date VIS Provided VIS Publication Date 10/30/24 Single Vaccine 21 Eligibility Eligibility Date Funding Source Not [facility] Eligible 10/30/24 Private Coding Level of Care Code New Pt Level 4 (94501) Diagnoses Schizophrenia, unspecified type F20.9 Schizophrenia type: unspecified Insomnia, unspecified type G47.00 Insomnia type: unspecified Additional Codes TAHMINA-7 Assessment Billing - TAHMINA-7 Assessment Tool: TAHMINA-7 Assessment 56672 ([id number]) PHQ-9 - 92604 - PHQ-9 Billing: Yes ([id number]) Time Spent (min) 35 Assessment & Plan Assessment & Plan (1) Schizophrenia: Code(s): F20.9 - Schizophrenia, unspecified Category: Medical Qualifiers: Schizophrenia type: unspecified Qualified Code(s): F20.9 - Schizophrenia, unspecified Plan: The patient is on risperidone ER 50 mg s.c, topiramate 50 BID follow up with psychiatry as scheduled (2) Insomnia: Code(s): G47.00 - Insomnia, unspecified Category: Medical Qualifiers: Insomnia type: unspecified Qualified Code(s): G47.00 - Insomnia, unspecified Plan: The patient is on trazodone 100mg at bedtime. The patient was prescribed zopidem from two different ED Reports that he has been taking his zolpidem in the morning as well He requesting for this medication to be prescribed to him The patient was encouraged to follow up back to psychiatry Proper sleep hygiene was recommended Plan Flu vaccine was given to patient today Follow up in 4 weeks Orders: Orders Influenza [id number] Immunization 10/30/24 Z23 - Encounter for immunization
[2024-10-30 13:05] VITALS: BP 110/76; PULSE 102; TEMP 36.1; O2SAT 95; BMI 34.2
--- OUTSIDE RECORDS SUMMARY | 2024-10-30 14:38 | XMS_ITS | Clinical Summary ---
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 Role Phone Unavailable Primary Care Provider Unavailabl e Social History Tobacco Use Types Packs/Day Years Used Date Smoking Tobacco: Never Assessed Sex and Gender Information Value Date Recorded Sex Assigned at Male 2022 10:24 AM EDT Legal Sex Male 10:24 AM EDT Gender Identity Male 2022 10:24 AM EDT Sexual Orientation Straight 2022 10 :24 AM EDT Plan of Treatment Health Maintenance Due Date Last Done Comments CT Colonography 1953 Colonoscopy 1953 Colorectal Cancer Screening 1953 Depression Screening 1953 FIT DNA/Cologuard 1953 FIT 1953 FOBT 1953 Lipid Panel 1953 Sigmoidoscopy 1953 Alcohol/Substance Use Screening 1965 Tobacco Screening 1965 DTaP/Tdap/Td Vaccines (1 - Tdap) 1972 Zoster Vaccines (1 of 2) 2003 Pneumococcal Vaccine: 65+ Ye ars (1 of 1 - PCV) 2018 COVID-19 Vaccine ( - 2023-2 5 season) 2024 Influenza Vaccine (#1) 2024 RSV Patients and Pa tients Aged 60 years or older (1 - 1-dose 75+ series) 2028 HIB Vaccines Aged Out No longer eligi ble based on patient's age to complete this topic HPV Vaccines Aged Out No longer eligi ble based on patient's age to complete this topic Hepatitis A Vaccines Aged Out No long er eligible based on patient's age to complete this topic Hepatitis B Vaccines Aged Out No long er eligible based on patient's age to complete this topic IPV Vaccines Aged Out No longer eligi ble based on patient's age to complete this topic Meningococcal Vaccine Aged Out No axel keerthi eligible based on patient's age to complete this topic RSV under 20 months Aged Out No longe r eligible based on patient's age to complete this topic Rotavirus Vaccines Aged Out No longer eligible based on patient's age to complete this topic
--- OUTSIDE RECORDS SUMMARY | 2024-10-30 14:39 | XMS_ITS | Encounter Summary ---
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 CONVERSIONS Dental, Provider, DDS Social History Tobacco Use Types Packs/Day Years Used Date Smoking Tobacco: Never Assessed Sex and Gender Information Value Date Recorded Sex Assigned at Male 2022 10:24 AM EDT Legal Sex Male 10:24 AM EDT Gender Identity Male 2022 10:24 AM EDT Sexual Orientation Straight 2022 10 :24 AM EDT documented as of this encounter Plan of Treatment Not on file documented as of this encounter Visit Diagnoses Not on filedocumented in this encounter
== END 2024-10-30 13:44 | disposition home or self-care (01) ==
LOC: HO.HMCH 12:58
DX: Z23 Encounter for immunization (principal)

== ENCOUNTER → 2024-10-30 12:58 | Outpatient (BNVA) | payer MEDICARE, SELFPAY | DX: Z23 Encounter for immunization (principal); F20.9 Schizophrenia, unspecified; G47.00 Insomnia, unspecified | CPT/HCPCS: 90471; 90656; 96127; 99202 ==

== ENCOUNTER 2024-11-02 05:33 | Emergency (ER) | payer MEDICARE, SELFPAY ==
[2024-11-02 05:35] VITALS: BP 139/85; PULSE 88; RESP 16; TEMP 36.6; O2SAT 96; BMI 36.6
--- OUTSIDE RECORDS SUMMARY | 2024-11-02 06:03 | XMS_ITS | Continuity of Care Document ---
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 Forepart Rounder Name Role Phone Not on Staff, PCP Primary Care Physician Unavail able Encounter [facility] Date(s): 10/28/24 - 10/28/[address] [id number]- Encounter Diagnosis Sleep concern(Final) - 10/28/24 Eloped from emergency department(Final) - 10/28/24 Discharge Disposition: A-D/C Home Attending Physician: Eliz Mchugh DO Admitting Physician: Eliz Mchugh DO Referring Physician: Not on Staff, Referring MD Encounter Type: Disch ES Allergies, Adverse Reactions, Alerts No Known Allergies Immunizations Given and Recorded Vaccine Date Status Refusal Reason pneumococcal 23-valent vaccine 09/25/19 Given influenza virus vaccine, inactivated 09/25/19 Give n influenza virus vaccine, inactivated 09/11/18 Give n influenza virus vaccine, inactivated 10/31/17 Give n influenza virus vaccine, inactivated 08/24/16 Give n influenza virus vaccine, inactivated 08/01/14 Give n influenza virus vaccine, inactivated 07/24/13 Give n pneumococcal 13-valent vaccine 09/11/18 Given tetanus/diphtheria/pertussis, acel(Tdap) 06/18/14 Given Influenza Inactive (IM) (oldterm) 1 08/22/07 Given 1Admin Note: vis given Medications 3 point lumbar support 3 point lumbar support, See Instructions, # 1 each, Refills 0, Tot. Refills 0, Maintenance, please dispense 1 back brace Dx S39.012A, 01/18/20 10:19:00 AM EDT, Supply Start Date: 01/18/20 Status: Ordered Quantity: 1.0 Unit: each Repeat number: 1 Indication: Strain of muscle, fascia and tendon of lower back, initial encounter atorvastatin 20 mg oral tablet 1 tablet = 20 mg, By Mouth, Daily, # 90 tablet, 3 Refills, Maintenance, 10/01/19 2:29:00 PM EST, Tablet, [facility] # 50, 170, cm, 09/25/19 11:19:00 EST, Height Start Date: 10/01/19 Status: Ordered Quantity: 90.0 Unit: tablet Repeat number: 4 Blood Pressure Monitor See Instructions, # 1 each, Maintenance, Please dispense blood pressure cuff to check daily Dx R03.0, 01/18/20 10:17:00 AM EDT, Compound Start Date: 01/18/20 Status: Ordered Quantity: 1.0 Unit: each Repeat number: 1 Indication: Elevated blood-pressure reading, without diagnosis of hypertension busPIRone 10 mg oral tablet 10 mg, 1, tablet, By Mouth, 3 times a day, PRN, start taking day prior to eye surgery, # 90 tablet,Refills 0, Tot. Refills 0, Maintenance, Anxiety, 01/03/20 1:41:00 PM EDT, Route to Pharmacy Electronically, [facility] # 50, 170, cm, 12/11/19 15:43:00 EST, Height Start Date: 01/03/20 Stop Date: 02/02/20 Status: Ordered Quantity: 90.0 Unit: tablet Repeat number: 1 NuLYTELY with Flavor Packs oral powder for reconstitution 240 mL, By Mouth, Every 10 minutes, # 1 each, 0 Refills, Maintenance, 04/26/18 2:14:00 PM EDT, REC Powder, [facility] # 50, exam is 06/13/2018, 240 mL By Mouth Every 10 minutes Start Date: 04/26/18 Status: Ordered Quantity: 1.0 Unit: each Repeat number: 1 see below see below, See Instructions, # 1 applicator, Refills 0, Tot. Refills 0, Maintenance, tens unit , use as directed dx icd 10 m62.838 cervical spasm and lower back pain m 54.5, 08/24/16 12:43:02 PM EST,Compound Start Date: 08/24/16 Status: Ordered Quantity: 1.0 Unit: applicator Repeat number: 1 Problem List Condition Confirmation Course Effective Dates Status Health St atus Informant Obese class I Confirmed Active Vital Signs Most recent to oldest [Reference Range]: 1 Height 170 cm (10/28/24 8:53 AM) Weight 97.6 kg (10/28/24 8:53 AM) Oxygen Saturation [94-100 %] 97 % (10/28/24 8:53 AM) Pulse Rate [55-90 bpm] 104 bpm *H* (10/28/24 8:53 AM) Body Mass Index [18.5-24.99 kg/m2] 33.77 kg/m2 *>HHI* (10/28/24 8:53 AM) Blood Pressure [90-138/55-84 mm Hg] 130/ 95mm Hg (10/28/24 8:53 AM) Respiratory Rate [16-30 br/min] 18 br/mi n (10/28/24 8:53 AM) Temperature [96.8-100.4 DegF] 97.8 DegF (10/28/24 8:53 AM) Mode of Delivery (Oxygen) Room air (10/28/24 8:53 AM) Blood pressure sites Arm, left (10/28/24 8:53 AM) Temperature Route Oral (10/28/24 8:53 AM) Dry Weight 97.6 kg (10/28/24 8:53 AM) Weight Obtained Via Standing scale (10/28/24 8:53 AM) Dry Weight Obtained Via Standing scale (10/28/24 8:53 AM) Social History Social History Type Response Smoking Status Never smoker entered on: 01/20/16 Sex Sex Representation Male (finding) Patient Care team information Care Team Personnel Name: Not on Staff, PCP Position: S Physician (General Medicine) Member Role: PCP Care Team Related Persons Name: PAM LO Name: UZAIR LOJA Insurance Providers Guarantor name: SHARIF LOJA Health Plan Information #: 1 Payer: MEDICARE PART B OUTPT Member Number: [id number] Policy Number: NA Group Number: NA Health Plan Information #: 2 Payer: MEDICARE PART B OUTPT Member Number: [id number] Policy Number: NA Group Number: NA
--- NOTE | 2024-11-02 06:40 | PC.NURSE ---
presents due to insomnia-- states only thing that helps is ambien for which he has to come to ED. lost his PCP during covid and just recenlty established care with a new one that he needs to see.
--- NOTE | 2024-11-02 07:08 | ECG_ITS ---
Test Reason : qtc check Blood Pressure : */* mmHG Vent. Rate : 71 BPM Atrial Rate : 71 BPM P-R Int : 150 ms QRS Dur : 90 ms QT Int : 398 ms P-R-T Axes : 53 14 26 degrees QTcB Int : 432 ms Normal sinus rhythm Normal ECG When compared with ECG of 08-Oct-2024 12:49, No significant change was found Referred By: Carmel Kimble Electronically Signed By: PASTORA BRAVO MD
--- NOTE | 2024-11-02 07:35 | ED.GENADULT ---
HPI - General Adult General Chief complaint: General Medical Stated complaint: trouble sleeping Time Seen by Provider: 11/02/24 07:06 Source: patient and old records reviewed Mode of arrival: ambulatory Limitations: no limitations History of Present Illness ED Provider: ANDREA DUBOIS narrative: 69 yo male with PMH of schizophrenia and kidney stones reports insomnia and asks for a preemptive ambien prescription. He just filled one for 10 days on 10/29. He has no SI/HI. States the insomnia has been a while. He denies any medical issues or concerns. He states he got the last Rx from his PCP. He just wanted to have one just in case. MD complaint: insomnia Onset (ago): month(s) Radiation: non-radiation Severity: moderate Quality: aching Relieving factors: none Exacerbating factors: other Associated symptoms: denies other symptoms Treatments prior to arrival: none Related Data Previous Rx's ?Medication ?Instructions ?Recorded risperidone 50 mg/0.14 mL 50 mg (0.14 mL) subcut QMONTH 10/16/24 subcutaneous extend release susp #0.14 mL syringe topiramate 50 mg tablet 50 mg PO BID #60 tabs 10/16/24 trazodone 100 mg tablet 100 mg PO BEDTIME PRN Insomnia #30 10/16/24 tabs zolpidem 5 mg tablet 5 mg PO BEDTIME #15 tabs 10/16/24 zolpidem 5 mg tablet 5 mg PO BEDTIME PRN sleep #7 tabs 10/26/24 Allergies Allergy/AdvReac Type Severity Reaction Status Date / Time No Known Allergies Allergy Verified 11/02/24 05:37 [No Known Allergies*] Review of Systems Review of Systems: Constitutional : No Fever, No Chills ENT/Mouth : No Ear Pain, No Nasal Congestion, No sore throat Eyes: No Eye Pain, No Swelling, No Redness Cardiovascular : No Chest Pain, No SOB Respiratory : No Cough, No Sputum, No Dyspnea Gastrointestinal : No Nausea, No Vomiting, No Diarrhea, No Hematochezia, No Melena Genitourinary : No Dysuria, No Urinary Frequency, No Hematuria Musculoskeletal : No Myalgias Skin : No Skin Lesions, No rash Neuro : No Weakness, No Numbness, No Paresthesias, No Dizziness, No Headache Psych : positive Anxiety, no Depression, no SI/HI All other systems reviewed and are negative PMFSH Past Medical History Attestation statement: The following information was validated with the patient. Source: old records reviewed Medical History Erectile dysfunction due to arterial insufficiency Surgical History History of eye surgery Family History Family History Other Mental health disorder Social History Social History Household Members: None Housing: Apartment Do you presently have visiting nurse or other home services: No Alcohol intake: never Patient Tobacco Use Status: Former Tobacco user Tobacco use type: Cigarette e-Cigarette/Vaping Use: Never Used Second Hand Smoke Exposure: Yes Substance Use Type: Crack/Cocaine Advance Directives: Yes Advance Directives on File: No Do you have a plan to hurt others: No Plan service: No Current occupational status: retired Sexual orientation: Straight/Heterosexual Cognitive needs: No Hearing needs: No Vision needs: No Physical Exam ED Vital Signs: Vital Signs - 24 hr 11/02/24 05:35 Temperature 97.9 F Pulse Rate 88 Respiratory Rate 16 Blood Pressure 139/85 Pulse Oximetry 96 Oxygen Delivery Method Room Air BMI result Body Mass Index 36.6 Appearance: Alert. Oriented X3. No acute distress. Eyes: Pupils equal, round and reactive to light. ENT: Pharynx normal. Neck: Normal inspection. Neck supple. CVS: Normal heart rate and rhythm. Pulses normal. Respiratory: No respiratory distress. Breath sounds normal. Abdomen: Soft and nontender. Skin: Skin warm and dry. Normal skin color. Normal skin turgor. Extremities: No lower extremity edema. No calf ttp Neuro: Oriented X 3. No motor deficit. No sensory deficit. CN2-12 intact Medical Decision Making Medical Decision Making MDM Narrative: 69 yo male with PMH of schizophrenia and kidney stones here with c/o insomnia and asking for a pre-emptive insomnia prescription. I explained I cannot do this as he still has some and it is a controlled substance. He denies SI/HI. He is aware he needs his PCP to fill it. He denies need for crisis Differential Diagnosis Differential Diagnoses: The differential diagnosis associated with the presentation includes insomnia, ambien misuse Independent Interpretation I performed an independent interpretation of an: EKG Interpretation: Rate: 71 Rhythm: NSR [place]: normal Normal P waves. Normal AVA. Normal QRS complex. ST T wave : normal no REBECCA qTC: 432 prior studies: no acute ischemia The study has been interpreted contemporaneously by me. . External Record Review External record reviewed: Outpatient record Discharge Plan Discharge Clinical Impression: Insomnia Qualifiers: Insomnia type: unspecified Qualified Code(s): G47.00 - Insomnia, unspecified Patient Disposition: Home, Self-Care Instructions: Insomnia (ED) Additional Instructions: you cannot fill an ambien prescription until Nov 08/Nov 10. You need to follow up with the same prescriber return for any other concerns or symptoms Prescriptions: No Action risperidone 50 mg/0.14 mL suspension,extended rel syring 50 mg subcut QMONTH Qty: 0.14 1RF topiramate 50 mg tablet 50 mg PO BID Qty: 60 0RF trazodone 100 mg Tablet 100 mg PO BEDTIME PRN (Reason: Insomnia) Qty: 30 0RF zolpidem 5 mg Tablet 5 mg PO BEDTIME Qty: 15 0RF zolpidem 5 mg tablet 5 mg PO BEDTIME PRN (Reason: sleep) Qty: 7 0RF Print Language: [place]
[2024-11-02 07:51] VITALS: BP 139/85; PULSE 88; RESP 16; TEMP 36.6; O2SAT 96
== END 2024-11-02 07:53 | disposition home or self-care (01) ==
PROVIDERS: Emergency Provider Emergency Medicine; PCP Physician Assistant
DX: G47.00 Insomnia, unspecified (principal); R94.31 Abnormal electrocardiogram [ECG] [EKG]; Z87.891 Personal history of nicotine dependence
CPT/HCPCS: 93005; 99283; 99284

== ENCOUNTER → 2024-11-02 07:08 | Outpatient (BNV) | payer MEDICARE, SELFPAY | PROVIDERS: Emergency Provider Emergency Medicine; PCP Physician Assistant; Visit Provider Internal Medicine Cardiovascular Disease | DX: Z13.6 Encounter for screening for cardiovascular disorders (principal) | CPT/HCPCS: 93010 ==

== ENCOUNTER → 2024-11-15 11:57 | Outpatient (BNVA) | payer MEDICARE, SELFPAY | DX: F20.9 Schizophrenia, unspecified (principal); G47.00 Insomnia, unspecified | CPT/HCPCS: 99212 ==

== ENCOUNTER → 2024-11-15 11:57 | Outpatient (AMB) ==
--- OUTSIDE RECORDS SUMMARY | 2024-11-15 12:02 | XMS_ITS | Encounter Summary ---
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
--- OUTSIDE RECORDS SUMMARY | 2024-11-15 12:02 | XMS_ITS | Continuity of Care Document ---
Author Organization [facility] ter Address [address] [place] [phone]- Care Team Providers Care Income Tax Adjuster Name Role Phone Not on Staff, PCP Primary Care Physician Unavail able [facility]counter [facility] Date(s): 10/28/24 - 10/28/[address] [address]- Encounter Diagnosis Medication management(Final) - 10/28/24 Eloped from emergency department(Final) - 10/28/24 Discharge Disposition: A-D/C AMA Attending Physician: Eliz Mchugh DO Admitting Physician: [...] Refills, Maintenance, 10/01/19 2:29:00 PM EST, Tablet, [facility] # 50, 170, cm, 09/25/19 11:19:00 [...] 1:41:00 PM EDT, Route to Pharmacy Electronically, [facility] # 50, 170, cm, 12/11/19 15:43:00 EST, Height Start Date: 01/03/20 Stop Date: 02/02/20 Status: Ordered Quantity: 90.0 Unit: tablet Repeat number: 1 NuLYTELY with Flavor Packs oral powder for reconstitution 240 mL, By Mouth, Every 10 minutes, # 1 each, 0 Refills, Maintenance, 04/26/18 2:14:00 PM EDT, REC Powder, [facility] # 50, exam is 06/13/2018, 240 [...] Most recent to oldest [Reference Range]: 1 2 Height 170 cm (10/28/24 1:32 PM) 170 cm (10/28/24 1:17 PM) Weight 100 kg (10/28/24 1:32 PM) 100 kg (10/28/24 1:17 PM) Oxygen Saturation [94-100 %] 96 % (10/28/24 1:17 PM) Pulse Rate [55-90 bpm] 104 bpm *H* (10/28/24 1:17 PM) Body Mass Index [18.5-24.99 kg/m2] 34.6 kg/m2 *>HHI* (10/28/24 1:17 PM) Blood Pressure [90-138/55-84 mm Hg] 149/ 92mm Hg *H* (10/28/24 1:17 PM) Respiratory Rate [16-30 br/min] 18 br/mi n (10/28/24 1:17 PM) Temperature [96.8-100.4 DegF] 98.0 DegF (10/28/24 1:17 PM) Mode of Delivery (Oxygen) Room air (10/28/24 1:17 PM) Blood pressure sites Arm, right (10/28/24 1:17 PM) Temperature Route Oral (10/28/24 1:17 PM) Dry Weight 100 kg (10/28/24 1:32 PM) 100 kg (10/28/24 1:17 PM) Weight Obtained Via Patient/family state d (10/28/24 1:17 PM) Dry Weight Obtained Via Patient/family s tated (10/28/24 1:17 PM) Social History Social History Type Response Smoking [...] Payer: MEDICARE PART B OUTPT Member Number: [id number] Policy Number: NA Group Number: NA Health Plan Information #: 2 Payer: MEDICARE PART B OUTPT Member Number: [id number] Policy Number: DANIELA Group Number: NA
--- OUTSIDE RECORDS SUMMARY | 2024-11-15 12:02 | XMS_ITS | Clinical Summary ---
Author Organization [employer] Address [address] [place] [address] [address] [place] [address] Care Team Providers Care Counselor Nurses' Association Name Role Phone Unavailable Primary Care Provider [...] 1965 DTaP/Tdap/Td Vaccines (1 - Tdap) 1972 Pneumococcal Vaccine: 50+ Ye ars (1 of 1 - PCV) 2003 Zoster Vaccines (1 of 2) 2003 COVID-19 Vaccine ( - 2023-2 5 season) [...]
--- NOTE | 2024-11-15 12:08 | A.OFFPC_ITS ---
Vital Signs 11/15/24 12:09 Height 5 ft 5 in Weight 216 lb BMI 35.9 BP 124/78 Blood Pressure Location Lt brachial Position Sitting Pulse 80 Pulse Source Pulse Oximeter Temp 97.3 F Temp Source Skin Pulse Oximetry (%) 97 Oxygen Delivery Method Room Air Intake Visit Reasons: discuss risperdal Intake Note: Patient here to discuss medication Composition Mixer Required: No Accompanied by: Self / Same As Patient Allergies No Known Allergies [No Known Allergies*] Allergy (Verified 11/17/24 14:55) Medication List - Last Reconciled 11/17/24 by NAWAF Mai risperidone ER 50 mg (0.14 mL) subcut QMONTH topiramate 50 mg PO BID trazodone 100 mg PO BEDTIME PRN zolpidem 5 mg PO BEDTIME Tobacco use date assessed: 10/30/24 Fall risk assessment: No Falls in past year Last assessed Fall Risk: 11/15/24 Dental Screening Dental Screen Date: 10/30/24 HPI discuss risperdal HPI Details The patient is a 69-year-old male with significant past medical history of schizophrenia, erectile dysfunction and nephrolithiasis I saw the patient on 10/30/2024 post adult Psychiatry visit for acute psychosis At that visit the patient presented with concerns of insomnia and was requesting Ambien The patient reported that he has trouble sleeping so he went to [facility] They gave him 15 Ambien 5 mg, he reports that he was taking one at night in one in the daytime because he had nothing to do Reports that he went back to [facility] after running out of medication and they refused to give him more As a result he went to [facility] and they gave him 10 more pills of Ambien but increased it to 10 mg yesterday The patient reports that he only have 8 pills left. Discussed with patient that he should have 9 tabs left He replied that he took one this morning as well. 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 PerThien it is hard to tell when the patient will be able to seen. He is estimated at least a month of wait time The patient was discharged on subQ risperidone 50 mg that he is supposed to be given monthly. He would need to be set up with Psychiatry to get this done monthly. He was also discharged on 5 mg of Ambien for insomnia, trazodone 100 mg at bedtime p.r.n., and topiramate 50 mg b.i.d. Per prescription monitoring program, the patient picked up Ambien 5 mg on 11/09/24, 7 tabs. He has one pill left, appears that the patient has been compliant with taking 1 Ambien instead of doubling up on the doses like he did in the past.SDM, will give the patient a 15 day supply. The patient has a follow up appointment on 11/23/2024. Discussed with the patient to bringing the rest of the pills for a pill count to evaluate compliance. And referral the [facility] and general psychiatry placed The patient reports seeing a therapist at [facility] Medical History (Updated 11/18/24 @ 11:24 by Osmani Santiago MD) Nephrolithiasis Schizophrenia Insomnia Erectile dysfunction due to arterial insufficiency Surgical History History of eye surgery Family History Other Mental health disorder Social History Household Members: None Housing: Apartment Do you presently have visiting nurse or other home services: No Alcohol intake: never Patient Tobacco Use Status: Former Tobacco user Tobacco use type: Cigarette e-Cigarette/Vaping Use: Never Used Second Hand Smoke Exposure: Yes Substance Use Type: Crack/Cocaine service: No Current occupational status: retired Sexual orientation: Straight/Heterosexual Cognitive needs: No Hearing needs: No Vision needs: No Questionnaire Thrive Questionnaire Date Thrive assessed: 10/30/24 TAHMINA-7 AMB Questionnaire TAHMINA-7 Date TAHMINA - 7 assessed: 10/30/24 Source: Developed by Drs. Nadeem Abdullahi, Charo B.W. Kenroy Jade and colleagues, with an educational tai from [employer]. Review of Systems Const Details: Denies chills, + insomnia, Denies fever(s), Denies headache(s) and Denies weakness HEENT Denies change in vision, Denies dizziness, Denies headache(s), Denies hearing loss, Denies nasal congestion, Denies sinus pain, Denies sinus pressure and Denies sore throat Card Denies chest pain, Denies lightheadedness, Denies dyspnea and Denies other (palpitations) Resp Denies cough, Denies dyspnea and Denies wheezing GI Denies abdominal pain, Denies melena, Denies hematochezia, Denies change in bowel habits, Denies dyspepsia and Denies nausea Denies hematuria and Denies dysuria Musc Denies abnormal gait, Denies myalgias, Denies arthralgias, Denies numbness and Denies tingling Skin/Breast Denies rash, Denies unusual bruising and Denies wounds Neuro Denies abnormal gait, Denies dizziness, Denies headache(s), Denies memory loss, Denies numbness, Denies Sensory deficit (Neuro), Denies tingling and Denies weakness Psych Denies anxiety, Denies depression and Denies memory loss Endo Denies cold intolerance, + insomnia, Denies heat intolerance, Denies polydipsia and Denies polyuria Carlos Alberto/Lymph Denies easy bleeding and Denies easy bruising Aller/Immun Denies wheezing Physical exam (Primary Care) Vital Signs: Last Vital Signs Temp 97.3 F 11/15/24 12:09 Pulse 80 11/15/24 12:09 BP 124/78 11/15/24 12:09 Pulse Ox 97 11/15/24 12:09 Oxygen Delivery Method Room Air 11/15/24 12:09 BMI result Body Mass Index 35.9 Tobacco/Smoking Status: Tobacco use Status Tobacco use date assessed 10/30/24 11/15/24 12:14 Patient Tobacco Use Status Former Tobacco user 11/15/24 12:14 Tobacco use type Cigarette 11/15/24 12:14 e-Cigarette/Vaping Use Never Used 11/15/24 12:14 Thrive Assessment: Date of Thrive Assessment Date Thrive assessed 10/30/24 11/15/24 12:14 Const Other: General: no acute distress, well developed, alert and awake Nutritional Appearance: well nourished Orientation/consciousness: patient oriented x3 HENMT Head: Yes normocephalic and Yes atraumatic Ears: hearing grossly normal bilaterally and TM's normal bilaterally General nose exam: Normal external nose present and Normal nares present Mouth: Normal oral and palatal mucosa present and moist mucous membranes Eyes Pupils: Equal, round and reactive pupils present and Pupil accommodation reflex normal EOM: EOMs intact bilaterally Resp Effort & Inspection: normal respiratory effort Auscultation: clear to auscultation bilaterally Cardio Rate: regular rate Rhythm: regular rhythm Heart sounds: S1 normal heart sound present, S2 normal heart sound present, no gallops, no murmurs and no rubs Bruits: no abdominal aortic bruits and no carotid bruits GI Palpation (GI): Abdominal soft and nontender to palpation Auscultation: normal bowel sounds General: Yes no CVA tenderness Psych Appearance: grossly normal Affect: normal affect Attitude: cooperative Thought process: Normal thought process present Coding Level of Care Code Est Pt Level 4 (41305) Diagnoses Schizophrenia, unspecified type F20.9 Schizophrenia type: unspecified Insomnia, unspecified type G47.00 Insomnia type: unspecified Time Spent (min) 38 Assessment & Plan Assessment & Plan (1) Schizophrenia: Code(s): F20.9 - Schizophrenia, unspecified Category: Medical Qualifiers: Schizophrenia type: unspecified Qualified Code(s): F20.9 - Schizophr enia, unspecified Plan: The patient was discharged on subQ risperidone 50 mg that he is supposed to be given monthly. He would need to be set up with Psychiatry to get this done monthly continue topiramate 50 mg BID. Referral to [facility] and general psych placed (2) Insomnia: Code(s): G47.00 - Insomnia, unspecified Category: Medical Qualifiers: Insomnia type: unspecified Qualified Code(s): G47.00 - Insomnia, unspecified Plan: Reinforced sleep hygiene He was also discharged on 5 mg of Ambien for insomnia, trazodone 100 mg at bedtime p.r.n., and topiramate 50 mg b.i.d. Per prescription monitoring program, the patient picked up Ambien 5 mg on 11/09/24, 7 tabs. He has one pill left, appears that the patient has been compliant with taking 1 Ambien instead of doubling up on the doses like he did in the past.SDM, will give the patient a 15 day supply. The patient has a follow up appointment on 11/23/2024. Discussed with the patient to bringing the rest of the pills for a pill count to evaluate compliance Plan Follow up as scheduled next week Orders: Referrals Psychiatry Referral F20.9 - Schizophrenia, unspecified Psychiatry Outpatient Consultation Service F20.9 - Schizophrenia, unspecified Medications: Refilled zolpidem 5 mg PO BEDTIME 15 tabs 0RF
== END | disposition home or self-care (01) ==

== ENCOUNTER 2024-11-23 10:33 | Outpatient (AMB) | payer MEDICARE, SELFPAY ==
--- NOTE | 2024-11-15 12:18 | A.OFFPC_ITS ---
Intake Visit Reasons: insomnia Allergies No Known Allergies [No Known Allergies*] Allergy (Verified 11/15/24 12:13) Tobacco use date assessed: 10/30/24 Dental Screening Dental Screen Date: 10/30/24 [facility] Medical History Erectile dysfunction due to arterial insufficiency Surgical History History of eye surgery Family History Other Mental health disorder Social History Household Members: None Housing: Apartment Do you presently have visiting nurse or other home services: No Alcohol intake: never Patient Tobacco Use Status: Former Tobacco user Tobacco use type: Cigarette e-Cigarette/Vaping Use: Never Used Second Hand Smoke Exposure: Yes Substance Use Type: Crack/Cocaine service: No Current occupational status: retired Sexual orientation: Straight/Heterosexual Cognitive needs: No Hearing needs: No Vision needs: No Questionnaire Thrive Questionnaire Date Thrive assessed: 10/30/24 TAHMINA-7 AMB Questionnaire TAHMINA-7 Date TAHMINA - 7 assessed: 10/30/24 Source: Developed by Drs. Nadeem Abdullahi, Charo Jade, Kenroy Short and colleagues, with an educational tai from [employer] Physical exam (Primary Care) Tobacco/Smoking Status: Tobacco use Status Tobacco use date assessed 10/30/24 10/30/24 13:18 Patient Tobacco Use Status Former Tobacco user 10/30/24 13:18 Tobacco use type Cigarette 10/30/24 13:18 e-Cigarette/Vaping Use Never Used 10/30/24 13:18 Thrive Assessment: Date of Thrive Assessment Date Thrive assessed 10/30/24 10/30/24 13:18 Coding
--- NOTE | 2024-11-23 10:40 | MHC.PC.OV ---
Vital Signs 11/23/24 10:50 Height 5 ft 5 in Weight 223 lb 8 oz BMI 37.2 BP 130/66 Blood Pressure Location Lt brachial Position Sitting Pulse 84 Pulse Source Pulse Oximeter Temp 98 F Temp Source Temporal Artery Scan Pulse Oximetry (%) 96 Oxygen Delivery Method Room Air Intake Visit Reasons: insomnia Intake Note: Patient is here to follow up on Insomnia. Sole Rounding Machine Operator Required: No Manufacturing Engineer Machining: Not Required per policy Accompanied by: Self / Same As Patient Allergies No Known Allergies [No Known Allergies*] Allergy (Verified 11/23/24 10:54) Medication List - Last Reconciled 11/23/24 by NAWAF Mai risperidone ER 50 mg (0.14 mL) subcut QMONTH topiramate 50 mg PO BID trazodone 100 mg PO BEDTIME PRN zolpidem 5 mg PO BEDTIME Tobacco use date assessed: 11/23/24 Dental Screening Dental Screen Date: 10/30/24 HPI insomnia HPI Details The patient is a 69-year-old male with significant past medical history of schizophrenia, erectile dysfunction and nephrolithiasis The patient presents today for f/u for pill counts 8 tabs. The patient to return on the 11/30 for a pill count, for his script to be renew for the . Patient reports that he has not smoked for 20 years but started smoking again 3 weeks ago Reports that he is not sure why started but he feels like it gives him something to do Reports that the pack that he bought 3 weeks ago still has 3 cigarettes lifting it Patient also reports that he would like to starting a GLP 1 to lose weight Discussed with patient about his activity level. Patient reports that he used to walk a lot and he is not sure why stopped Discussed with patient that it may not be a candidate for GLP 1, since he is not diabetic and he has not been active Patient reports that he is going to try to start walking again Patient reports that he has been sleeping much better but reports that when he gets up to use the bathroom he usually watch alert a TV before going back to bed Encouraged sleep hygiene-the patient reports that he feels like there is nothing to do so he tends to watch TV a lot Patient reports that he will follow up with Dr. 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 Reports cataract in right and macular pocker that was not operated on as yet. The patient is planning on making an appt, his glasses is 3 years old and he feels that day does work as well and his blurriness has returned. Documentation below of previous visit, explaining why the patient Ambien her being counted I saw the patient on 10/30/2024 post adult Psychiatry visit for acute psychosis At that visit the patient presented with concerns of insomnia and was requesting Ambien The patient reported that he has trouble sleeping so he went to [facility] They gave him 15 Ambien 5 mg, he reports that he was taking one at night in one in the daytime because he had nothing to do Reports that he went back to [facility] after running out of medication and they refused to give him more As a result he went to [facility] and they gave him 10 more pills of Ambien but increased it to 10 mg yesterday The patient reports that he only have 8 pills left. Discussed with patient that he should have 9 tabs left He replied that he took one this morning as well. Discussed that he is completely mismanaging his medication Encouraged the patient to follow up back psychiatry Encouraged proper sleep hygiene The patient contact the office few days ago expressing that he went to lease picker his Ambien and was told that there were no refills He reported that this provider had ordered Ambien for him, which was not accurate The patient was place on as scheduled to further evaluate his condition and request Today in office: Discussed with patient along with Thien from patient navigation about plans to get the patient in to see Psychiatry as soon as possible. PerThien it is hard to tell when the patient will be able to seen. He is estimated at least a month of wait time The patient was discharged on subQ risperidone 50 mg that he is supposed to be given monthly. He would need to be set up with Psychiatry to get this done monthly. He was also discharged on 5 mg of Ambien for insomnia, trazodone 100 mg at bedtime p.r.n., and topiramate 50 mg b.i.d. Per prescription monitoring program, the patient picked up Ambien 5 mg on 11/09/24, 7 tabs. He has one pill left, appears that the patient has been compliant with taking 1 Ambien instead of doubling up on the doses like he did in the past.SDM, will give the patient a 15 day supply. The patient has a follow up appointment on 11/23/2024. Discussed with the patient to bringing the rest of the pills for a pill count to evaluate compliance. And referral the Lizbet Gomez and general psychiatry placed The patient reports seeing a therapist at [facility] Medical History (Updated 11/23/24 @ 11:41 by NAWAF Mai) Insomnia Nephrolithiasis Schizophrenia Erectile dysfunction due to arterial insufficiency Surgical History History of eye surgery Family History Other Mental health disorder Social History Household Members: None Housing: Apartment Do you presently have visiting nurse or other home services: No Alcohol intake: never Patient Tobacco Use Status: Former Tobacco user Tobacco use type: Cigarette e-Cigarette/Vaping Use: Never Used Second Hand Smoke Exposure: Yes Substance Use Type: Crack/Cocaine service: No Current occupational status: retired Sexual orientation: Straight/Heterosexual Cognitive needs: No Hearing needs: No Vision needs: No Questionnaire Thrive Questionnaire Date Thrive assessed: 10/30/24 TAHMINA-7 AMB Questionnaire TAHMINA-7 Date TAHMINA - 7 assessed: 10/30/24 Source: Developed by Drs. Nadeem Abdullahi, Charo Jade, Kenroy Short and colleagues, with an educational tai from [employer]. Review of Systems Const Details: Denies chills, Denies fatigue, Denies fever(s), Denies headache(s) and Denies weakness HEENT Other: reports decrease in his vision (reports status post surgery on left due to macular pucker). Reports that he has a macular pucker in the right eye that has not been operated on yet. Reports that he also has a cataract in the right eye. Patient reports that he went to [facility] in [place] and we will make an appointment. Denies dizziness, Denies headache(s), Denies hearing loss, Denies nasal congestion, Denies sinus pain, Denies sinus pressure and Denies sore throat Card Denies chest pain, Denies lightheadedness, Denies dyspnea and Denies other (palpitations) Resp Denies cough, Denies dyspnea and Denies wheezing GI Denies abdominal pain, Denies melena, Denies hematochezia, Denies change in bowel habits, Denies dyspepsia and Denies nausea Denies hematuria and Denies dysuria Musc Denies abnormal gait, Denies myalgias, Denies arthralgias, Denies numbness and Denies tingling Skin/Breast Denies rash, Denies unusual bruising and Denies wounds Neuro Denies abnormal gait, Denies dizziness, Denies headache(s), Denies memory loss, Denies numbness, Denies Sensory deficit (Neuro), Denies tingling and Denies weakness Psych Denies anxiety, Denies depression and Denies memory loss Endo Denies cold intolerance, Denies fatigue, Denies heat intolerance, Denies polydipsia and Denies polyuria Carlos Alberto/Lymph Denies easy bleeding and Denies easy bruising Aller/Immun Denies wheezing Physical exam (Primary Care) Vital Signs: Last Vital Signs Temp 98 F 11/23/24 10:50 Pulse 84 11/23/24 10:50 BP 130/66 11/23/24 10:50 Pulse Ox 96 11/23/24 10:50 Oxygen Delivery Method Room Air 11/23/24 10:50 BMI result Body Mass Index 37.2 Tobacco/Smoking Status: Tobacco use Status Tobacco use date assessed 11/23/24 11/23/24 10:53 Patient Tobacco Use Status Former Tobacco user 11/23/24 10:42 Tobacco use type Cigarette 11/23/24 10:42 e-Cigarette/Vaping Use Never Used 11/23/24 10:42 Thrive Assessment: Date of Thrive Assessment Date Thrive assessed 10/30/24 11/23/24 10:42 Const Other: General: no acute distress, well developed, alert and awake Nutritional Appearance: well nourished Orientation/consciousness: patient oriented x3 HENMT Head: Yes normocephalic and Yes atraumatic Mouth: Normal oral and palatal mucosa present and moist mucous membranes Eyes Pupils: Equal, round and reactive pupils present and Pupil accommodation reflex normal EOM: EOMs intact bilaterally Neck Neck: Yes normal visual inspection, Yes no lymphadenopathy and Yes trachea midline Thyroid: Thyroid normal Lymphatic: no lymphadenopathy noted Resp Effort & Inspection: normal respiratory effort Auscultation: clear to auscultation bilaterally Cardio Rate: regular rate Rhythm: regular rhythm Heart sounds: S1 normal heart sound present, S2 normal heart sound present, no gallops, no murmurs and no rubs Bruits: no abdominal aortic bruits and no carotid bruits GI Palpation (GI): Abdomen large, protuberant, soft and nontender to palpation Auscultation: normal bowel sounds General: Yes no CVA tenderness Back/Spine/Pelvis Back: no CVA tenderness Cervical Spine: cervical ROM normal and No Cervical spine tenderness Thoracic/Lumbar Spine: No thoracic spinal tenderness and No lumbar spinal tenderness Skin General: warm and dry. Normal skin color. Normal skin turgor Lesions: no lesions Nails: normal Neuro General: patient oriented x3, gait normal Cranial nerves: Yes Equal, round and reactive pupils present Cognition (Neuro): normal cognition Gait exam (Neuro): Normal gait present Extrem General: Yes normal to inspection, No edema and No calf tenderness Psych Appearance: grossly normal Affect: normal affect Attitude: cooperative Thought process: Normal thought process present Coding Level of Care Code Est Pt Level 3 (22913) Diagnoses Insomnia, unspecified type G47.00 Insomnia type: unspecified Schizophrenia, unspecified type F20.9 Schizophrenia type: unspecified Erectile dysfunction due to arterial insufficiency N52.01 Blurry vision H53.8 Time Spent (min) 27 Assessment & Plan Assessment & Plan (1) Insomnia: Code(s): G47.00 - Insomnia, unspecified Category: Medical Qualifiers: Insomnia type: unspecified Qualified Code(s): G47.00 - Insomnia, unspecified Plan: Reinforced sleep hygiene He was also discharged on 5 mg of Ambien for insomnia, trazodone 100 mg at bedtime p.r.n., and topiramate 50 mg b.i.d. Per prescription monitoring program, the patient picked up Ambien 5 mg on 11/09/24, 7 tabs. He has one pill left, appears that the patient has been compliant with taking 1 Ambien instead of doubling up on the doses like he did in the past.SDM, will give the patient a 15 day supply. The patient has a follow up appointment on 11/23/2024. Discussed with the patient to bringing the rest of the pills for a pill count to evaluate compliance Patient presents today (11/23/24), pill count was completed and the patient has 8 pills left. Patient is scheduled to follow up on the for another pill count. (2) Schizophrenia: Code(s): F20.9 - Schizophrenia, unspecified Category: Medical Qualifiers: Schizophrenia type: unspecified Qualified Code(s): F20.9 - Schizophrenia, unspecified Plan: The patient was discharged on subQ risperidone 50 mg that he is supposed to be given monthly. He would need to be set up with Psychiatry to get this done monthly continue topiramate 50 mg BID. The patient has an appointment on 11/29/2024-encouraged the patient to keep that appointment (3) Erectile dysfunction due to arterial insufficiency: Code(s): N52.01 - Erectile dysfunction due to arterial insufficiency Category: Medical Plan: Patient reports that he wants to follow up with Dr. Mendiola. Patient already has a relationship with Dr. Mendiola and reports that he will make an appointment. 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 He reports that he has macular pucker in her right eye as well along with cataract. Reports that the right eye was not operated on yet. Reports that he needs to follow up with them because his glasses he is 3 years old and his vision started getting blurry again. Patient reports that he is going to call and make an appointment. Plan Follow up as scheduled 11/30/24
[2024-11-23 10:50] VITALS: BP 130/66; PULSE 84; TEMP 36.6; O2SAT 96; BMI 37.2
--- OUTSIDE RECORDS SUMMARY | 2024-11-23 11:23 | XMS_ITS | Clinical Summary ---
Author Organization [employer] Address [address] [place] [address] [address] [place] [address] Care Team Providers Care Garage Construction Equipment Mechanic Name Role Phone Unavailable Primary Care Provider [...]
--- OUTSIDE RECORDS SUMMARY | 2024-11-23 11:23 | XMS_ITS | Encounter Summary ---
Author Organization [employer] [facility] Address [address] [place] [address] 7 [place] [address] Care Team Providers Care Roll Plugger Name Role Phone Unavailable Primary Care Provider Unavailabl e Encounter Details Date Type Department Care Team (Latest Contact Info) Description 02/23/2021 Abstract [facility] CONVERSIONS Dental, Provider, DDS Social History [...]
== END 2024-11-23 11:24 | disposition home or self-care (01) ==
DX: G47.00 Insomnia, unspecified (principal); F20.9 Schizophrenia, unspecified; N52.01 Erectile dysfunction due to arterial insufficiency; H53.8 Other visual disturbances

== ENCOUNTER → 2024-11-23 10:33 | Outpatient (BNVA) | payer MEDICARE, SELFPAY | DX: G47.00 Insomnia, unspecified (principal); F20.9 Schizophrenia, unspecified; N52.01 Erectile dysfunction due to arterial insufficiency; H53.8 Other visual disturbances | CPT/HCPCS: 99212 ==

== ENCOUNTER 2024-11-29 14:05 | Outpatient (AMB) | payer MEDICARE, SELFPAY ==
--- NOTE | 2024-11-29 14:18 | MHC.OFFVISPS ---
Intake Intake Visit Reasons: bridge Banana Room Cutter Required: No Allergies No Known Allergies [No Known Allergies*] Allergy (Verified 11/23/24 10:54) Medication List - Last Reconciled 11/29/24 by Lizbet Gomez APRN risperidone ER 50 mg (0.14 mL) subcut QMONTH topiramate 50 mg PO BID trazodone 100 mg PO BEDTIME PRN zolpidem 5 mg PO BEDTIME HPI- Psychiatric Chief Complaint: bridge HPI Narrative: pt reports that he already saw a psychiatrist at [facility] named Kimmy Lopez. He did not get his uzedy injection yet but can get it a [facility] and its a walk in clinic; he can go anytime; he has been taking hydroxyzine and ambien at night. He did not take the topirimate after discharge; reviewed rational for each. Education done re urgency of getting the next dose of uzedy and he says he will go to the pharmacy. He will restart the topirimate. He got a rx from his PCP for ambien; I instructed him to continue with Kmimy Lopez at [facility] and he says his next appt with her is December 23. He denies SI or HI; He does no self diagloguing while in interviw; he was coherent and logical. Past Psychiatric History: IN[facility] sect 21 Oct 2024 OP: [facility]- more than 9 years ago. Past medication trials: olanzapine Subjective Subjective Subjective Medication Compliance: Yes Side effects from medications: No Review of Systems Medical Review of Systems: unchanged Mental Status Exam Mental Status Exam Patient Appearance: Disheveled, Unkempt and Malodorous Patient Orientation: Person, Place, Time and Situation Level of Consciousness: Awake Patient Behavior: Appropriate Mood Description: Cheerful Affect Description: Cheerful Patient Cognition Impaired: No Ability to Follow Directions: Fair Speech Pattern: Clear Memory Description: Intact Hallucinations: None Delusions: Not Present Thought Process: Intact Thought Content: positive for Intact Judgement: Fair Results Reviewed Results Reviewed: reviewed patient record christen Pardo [employer] discharge summary and plan Assessment and Plan Assessment & Plan (1) Schizophrenia, chronic condition: Status: Acute Code(s): F20.9 - Schizophrenia, unspecified Plan continue with [facility] Laura Lopez for medication management advised to go to [facility] krista to get overdue injection of Uzedy Medications: New hydroxyzine HCl 25 mg PO BEDTIME PRN 30 tabs 0RF itching Refilled topiramate 50 mg PO BID 60 tabs 0RF Counseling and coordination of Care Pt. Self Management counseling: Med illness tx adherence, Sleep hygiene and Behavior activation Medication management counseling: Effectiveness, Side effects, Dosing range, Duration, Drug interaction and Adherence Diagnosis and Prognosis Counseling: Accuracy of diagnosis, Prognosis over time, Impact of diagnosis on life functions and Adequacy of current interventions Details: I spent 45 minutes reviewing the record, seeing the patient and documenting in the medical record. Counseling provided to the patient/caregiver as outlined below. Addressed patient/caregiver concerns regarding current medication regime including effective adherence. Addressed patient/caregiver concerns regarding diagnosis and prognosis including accuracy of diagnosis, prognosis over time, impact of diagnosis. Addressed patient/caregiver concerns regarding impact of recent stressors. [facility] Medical History (Updated 11/29/24 @ 14:43 by Lizbet Gomez APRN) Insomnia Nephrolithiasis Schizophrenia Erectile dysfunction due to arterial insufficiency Surgical History History of eye surgery Family History Other Mental health disorder Social History Household Members: None Housing: Apartment Do you presently have visiting nurse or other home services: No Alcohol intake: never Patient Tobacco Use Status: Former Tobacco user Tobacco use type: Cigarette e-Cigarette/Vaping Use: Never Used Second Hand Smoke Exposure: Yes Substance Use Type: Crack/Cocaine service: No Current occupational status: retired Sexual orientation: Straight/Heterosexual Cognitive needs: No Hearing needs: No Vision needs: No Social History: Never . 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 His level of functioning drastically declined. Hx of paranoia and psychosis. He has 3 siblings. Mother . Substance History: Hx of cocaine use. He has not used in more than 20 years. Trauma History: denies Coding Level of Care Code Est Pt Level 5 (22831) Diagnoses Schizophrenia, chronic condition F20.9
--- OUTSIDE RECORDS SUMMARY | 2024-11-29 15:09 | XMS_ITS | Encounter Summary ---
Author Organization [employer] [facility] Address [address] [place] [address] [address] [place] [address] Care Team Providers Care Software Validation Technician Name Role Phone Unavailable Primary Care Provider Unavailabl e Encounter Details Date Type Department Care Team (Latest Contact Info) Description 02/23/2021 Abstract [facility] CONVERSIONS Dental, Provider, DDS Social History [...]
--- OUTSIDE RECORDS SUMMARY | 2024-11-29 15:09 | XMS_ITS | Clinical Summary ---
Author Organization [employer] Address [address] [place] [address] [address] [place] [address] Care Team Providers Care Health And Safety Advisor Name Role Phone Unavailable Primary Care Provider [...]
== END 2024-11-29 14:36 | disposition home or self-care (01) ==
LOC: HO.HOP 14:05
PROVIDERS: Visit Provider Clinical Nurse Specialist Psychiatric/Mental Health
DX: F20.9 Schizophrenia, unspecified (principal)
CPT/HCPCS: 99215

== ENCOUNTER → 2024-11-29 14:05 | Outpatient (BNVA) | payer MEDICARE, SELFPAY | PROVIDERS: Visit Provider Clinical Nurse Specialist Psychiatric/Mental Health | DX: F20.9 Schizophrenia, unspecified (principal) | CPT/HCPCS: 99212 ==

== ENCOUNTER 2024-11-30 09:00 | Outpatient (AMB) | payer MEDICARE, SELFPAY ==
--- NOTE | 2024-11-30 09:06 | A.OFFPC_ITS ---
Vital Signs 11/30/24 09:07 Height 5 ft 5 in Weight 222 lb 8 oz BMI 37.0 BP 120/70 Blood Pressure Location Lt brachial Position Sitting Pulse 84 Pulse Source Pulse Oximeter Temp 97.1 F Temp Source Temporal Artery Scan Pulse Oximetry (%) 97 Oxygen Delivery Method Room Air Intake Visit Reasons: Pill count Intake Note: Patient is here to follow up on pill count. Shared Services And Outsourcing Manager Required: No Director Product: Not Required per policy Accompanied by: Self / Same As Patient Allergies No Known Allergies [No Known Allergies*] Allergy (Verified 11/30/24 09:17) Medication List - Last Reconciled 11/30/24 by NAWAF Mai hydroxyzine HCl 25 mg PO BEDTIME PRN risperidone ER 50 mg (0.14 mL) subcut QMONTH topiramate 50 mg PO BID trazodone 100 mg PO BEDTIME PRN zolpidem 5 mg PO BEDTIME Tobacco use date assessed: 11/30/24 Fall risk assessment: No Falls in past year Last assessed Fall Risk: 11/30/24 Dental Screening Dental Screen Date: 10/30/24 HPI Pill count HPI Details The patient is a 69-year-old male with significant past medical history of schizophrenia, elevated triglycerides with high cholesterol, insomnia, erectile dysfunction and nephrolithiasis The patient is presenting today a pill count (Ambien 5 mg). The patient has 2 pills left; this is consistent with taking his medication as ordered. Patient reports meeting with Marion Gomez, reports that she did not make any changes because he was already connected with [facility] He reports that he has an appt with Demoris Nguyen (psychiatrist on 12/23/24 The patient reports that his psychiatrist is going to request his medical records to start prescribing him risperidone injections He reports that they are limited pharmacies that actually carry this medication and they will be getting it from a pharmacy in [place] Patient reports that he is getting up to use the bathroom 5-6 times a night Reports that he has an appointment with Dr. Mendiola but it is not until February 28 Reports that he was given Flomax in the hospital that he has been using sparingly out of fear of the running out The patient denies burning with urination, denies penile discharge The patient reports that he knows that he does not have any STD because he has not had sex in years We will order the patient tamsulosin 0.4 mg at bedtime Patient does not remember the last time he had a physical Will have the patient come in next month for an annual physical/pill count [facility] Medical History (Updated 12/02/24 @ 21:00 by NAWAF Mai) Insomnia Nephrolithiasis Schizophrenia Erectile dysfunction due to arterial insufficiency Surgical History History of eye surgery Family History Other Mental health disorder Social History Household Members: None Housing: Apartment Do you presently have visiting nurse or other home services: No Alcohol intake: never Patient Tobacco Use Status: Former Tobacco user Tobacco use type: Cigarette e-Cigarette/Vaping Use: Never Used Second Hand Smoke Exposure: Yes Substance Use Type: Crack/Cocaine service: No Current occupational status: retired Sexual orientation: Straight/Heterosexual Cognitive needs: No Hearing needs: No Vision needs: No Questionnaire Thrive Questionnaire Date Thrive assessed: 10/30/24 TAHMINA-7 AMB Questionnaire TAHMINA-7 Date TAHMINA - 7 assessed: 10/30/24 Source: Developed by Drs. Nadeem Abdullahi, Charo Jade, Kenroy Short and colleagues, with an educational tai from [employer]. Review of Systems Const Details: Denies chills, Denies fatigue, Denies fever(s), Denies headache(s) and Denies weakness HEENT Denies change in vision, Denies dizziness, Denies headache(s), Denies hearing loss, Denies nasal congestion, Denies sinus pain, Denies sinus pressure and Denies sore throat Card Denies chest pain, Denies lightheadedness, Denies dyspnea and Denies other (palpitations) Resp Denies cough, Denies dyspnea and Denies wheezing GI Denies abdominal pain, Denies melena, Denies hematochezia, Denies change in bowel habits, Denies dyspepsia and Denies nausea Denies hematuria and Denies dysuria Musc Denies abnormal gait, Denies myalgias, Denies arthralgias, Denies numbness and Denies tingling Skin/Breast Denies rash, Denies unusual bruising and Denies wounds Neuro Denies abnormal gait, Denies dizziness, Denies headache(s), Denies memory loss, Denies numbness, Denies Sensory deficit (Neuro), Denies tingling and Denies weakness Psych Denies anxiety, Denies depression and Denies memory loss, +insomnia Endo Denies cold intolerance, Denies fatigue, Denies heat intolerance, Denies polydipsia and Denies polyuria Carlos Alberto/Lymph Denies easy bleeding and Denies easy bruising Aller/Immun Denies wheezing Physical exam (Primary Care) Vital Signs: Last Vital Signs Temp 97.1 F 11/30/24 09:07 Pulse 84 11/30/24 09:07 BP 120/70 11/30/24 09:07 Pulse Ox 97 11/30/24 09:07 Oxygen Delivery Method Room Air 11/30/24 09:07 BMI result Body Mass Index 37.0 Tobacco/Smoking Status: Tobacco use Status Tobacco use date assessed 11/30/24 11/30/24 09:11 Patient Tobacco Use Status Former Tobacco user 11/30/24 09:11 Tobacco use type Cigarette 11/30/24 09:11 e-Cigarette/Vaping Use Never Used 11/30/24 09:11 Thrive Assessment: Date of Thrive Assessment Date Thrive assessed 10/30/24 11/30/24 09:11 Const Other: General: no acute distress, well developed, alert and awake Nutritional Appearance: well nourished Orientation/consciousness: patient oriented x3 HENMT Head: Yes normocephalic and Yes atraumatic Ears: hearing grossly normal bilaterally and TM's normal bilaterally General nose exam: Normal external nose present and Normal nares present Mouth: Normal oral and palatal mucosa present and moist mucous membranes Eyes Pupils: Equal, round and reactive pupils present and Pupil accommodation reflex normal EOM: EOMs intact bilaterally Neck Neck: Yes normal visual inspection, Yes no lymphadenopathy and Yes trachea midline Thyroid: Thyroid normal Carotids: no bruits Lymphatic: no lymphadenopathy noted Chest Chest palpation & inspection: normal inspection of the chest Resp Effort & Inspection: normal respiratory effort Auscultation: clear to auscultation bilaterally Cardio Rate: regular rate Rhythm: regular rhythm Heart sounds: S1 normal heart sound present, S2 normal heart sound present, no gallops, no murmurs and no rubs GI Palpation (GI): Abdomen large, rounded and protuberant, nontender to palpation Auscultation: normal bowel sounds General: Yes no CVA tenderness Back/Spine/Pelvis Back: no CVA tenderness Cervical Spine: cervical ROM normal and No Cervical spine tenderness Thoracic/Lumbar Spine: No lumbar tenderness on palpation Skin General: warm and dry. Normal skin color. Normal skin turgor Lesions: no lesions Nails: normal Neuro General: patient oriented x3, gait normal Cranial nerves: Yes Equal, round and reactive pupils present Cognition (Neuro): normal cognition Gait exam (Neuro): Normal gait present Extrem General: Yes normal to inspection, No edema and No calf tenderness Psych Appearance: grossly normal Affect: normal affect Attitude: cooperative Thought process: Normal thought process present Coding Level of Care Code Est Pt Level 3 (82731) Diagnoses Insomnia, unspecified type G47.00 Insomnia type: unspecified Schizophrenia, unspecified type F20.9 Schizophrenia type: unspecified Erectile dysfunction due to arterial insufficiency N52.01 Blurry vision H53.8 Nocturia R35.1 Time Spent (min) 32 Assessment & Plan Assessment & Plan (1) Insomnia: Code(s): G47.00 - Insomnia, unspecified Category: Medical Qualifiers: Insomnia type: unspecified Qualified Code(s): G47.00 - Insomnia, unspecified Plan: Reinforced sleep hygiene He was also discharged on 5 mg of Ambien for insomnia, trazodone 100 mg at bedtime p.r.n., and topiramate 50 mg b.i.d. Per prescription monitoring program, the patient picked up Ambien 5 mg on 11/09/24, 7 tabs. He has one pill left, appears that the patient has been compliant with taking 1 Ambien instead of doubling up on the doses like he did in the past.SDM, will give the patient a 15 day supply. The patient has a follow up appointment on 11/23/2024. Discussed with the patient to bringing the rest of the pills for a pill count to evaluate compliance Patient presents today (11/30/24), pill count was completed and the patient has 2 pills left. (2) Schizophrenia: Code(s): F20.9 - Schizophrenia, unspecified Category: Medical Qualifiers: Schizophrenia type: unspecified Qualified Code(s): F20.9 - Schizophrenia, unspecified Plan: The patient was discharged on subQ risperidone 50 mg that he is supposed to be given monthly. He would need to be set up with Psychiatry to get this done monthly continue topiramate 50 mg BID. He reports that he has an appt with Diana Cedillo (psychiatrist on 12/23/24 (3) Erectile dysfunction due to arterial insufficiency: Code(s): N52.01 - Erectile dysfunction due to arterial insufficiency Category: Medical Plan: Patient reports that he wants to follow up with Dr. Mendiola. Patient already has a relationship with Dr. Mendiola and reports that he will make an appointment. Patient requested Monster, discussed with patient that better to wait until he is seen by psych to determine what medication that he is going to be on before start making changes to his medications (4) Blurry vision: Code(s): H53.8 - Other visual disturbances Category: Medical Plan: Patient reports that he had macular pucker in the left eye and had [facility] at [facility] [place]. He reports that he has macular pucker in her right eye as well along with cataract. Reports that the right eye was not operated on yet. Reports that he needs to follow up with them because his glasses he is 3 years old and his vision started getting blurry again. Patient reports that he is going to call and make an appointment. (5) Nocturia: Code(s): R35.1 - Nocturia Category: Medical Plan: Patient reports that he is getting up to use the bathroom 5-6 times a night Reports that he has an appointment with Dr. Mendiola but it is not until February 28 Reports that he was given Flomax in the hospital that he has been using sparing ly out of fear of the running out The patient denies burning with urination, denies penile discharge The patient reports that he knows that he does not have any STD because he has not had sex in years We will order the patient tamsulosin 0.4 mg at bedtime Plan The patient to follow on 12/28/24 for physical exam Orders: Orders Complete Blood Count Auto Diff 3 Months E78.2 - Mixed hyperlipidemia, N52.01 - Erectile dysfunction due to arterial insufficiency, Z00.00 - Encounter for general adult medical examination without abnormal findings Comprehensive Morris. Panel Fast 3 Months E78.2 - Mixed hyperlipidemia, N52.01 - Erectile dysfunction due to arterial insufficiency, Z00.00 - Encounter for general adult medical examination without abnormal findings Vitamin D 25-OH Total 3 Months E78.2 - Mixed hyperlipidemia, N52.01 - Erectile dysfunction due to arterial insufficiency, Z00.00 - Encounter for general adult medical examination without abnormal findings UA CC w/rflx Micro + Cult 3 Months E78.2 - Mixed hyperlipidemia, N52.01 - Erectile dysfunction due to arterial insufficiency, Z00.00 - Encounter for general adult medical examination without abnormal findings TSH reflex Free T4 3 Months E78.2 - Mixed hyperlipidemia, N52.01 - Erectile dysfunction due to arterial insufficiency, Z00.00 - Encounter for general adult medical examination without abnormal findings Glucose Fasting 3 Months E78.2 - Mixed hyperlipidemia, N52.01 - Erectile dysfunction due to arterial insufficiency, Z00.00 - Encounter for general adult medical examination without abnormal findings Lipid Panel 3 Months E78.2 - Mixed hyperlipidemia, N52.01 - Erectile dysfunction due to arterial insufficiency, Z00.00 - Encounter for general adult medical examination without abnormal findings PSA,Total (Free>4and<10) 3 Months E78.2 - Mixed hyperlipidemia, N52.01 - Erectile dysfunction due to arterial insufficiency, Z00.00 - Encounter for general adult medical examination without abnormal findings Medications: New tamsulosin (Flomax) 0.4 mg PO BEDTIME 30 caps 3RF Refilled zolpidem 5 mg PO BEDTIME 15 tabs 0RF
[2024-11-30 09:07] VITALS: BP 120/70; PULSE 84; TEMP 36.2; O2SAT 97; BMI 37.0
--- OUTSIDE RECORDS SUMMARY | 2024-11-30 09:24 | XMS_ITS | Clinical Summary ---
Author Organization [employer] Address [address] [place] [address] [address] [place] [address] Care Team Providers Care Herbicide Sprayer Name Role Phone Unavailable Primary Care Provider [...]
--- OUTSIDE RECORDS SUMMARY | 2024-11-30 09:24 | XMS_ITS | Encounter Summary ---
Author Organization [employer] [facility] Address [address] [place] [address] [address] [place] [address] Care Team Providers Care Wellness Health Coach Name Role Phone Unavailable Primary Care Provider Unavailabl e Encounter Details Date Type Department Care Team (Latest Contact Info) Description 02/23/2021 Abstract [facility] CONVERSIONS Dental, Provider, DDS Social [...]
== END 2024-11-30 09:45 | disposition home or self-care (01) ==
DX: G47.00 Insomnia, unspecified (principal); F20.9 Schizophrenia, unspecified; N52.01 Erectile dysfunction due to arterial insufficiency; H53.8 Other visual disturbances; R35.1 Nocturia

== ENCOUNTER → 2024-11-30 09:00 | Outpatient (BNVA) | payer MEDICARE, SELFPAY | DX: G47.00 Insomnia, unspecified (principal); F20.9 Schizophrenia, unspecified; N52.01 Erectile dysfunction due to arterial insufficiency; R35.1 Nocturia; H53.8 Other visual disturbances | CPT/HCPCS: 99212 ==

== ENCOUNTER 2025-01-04 15:58 | Outpatient (AMB) | payer MEDICARE, MEDICAID, SELFPAY ==
[2025-01-04 16:08] VITALS: BP 130/90; PULSE 92; RESP 20; TEMP 36.8; O2SAT 95; BMI 35.3
--- NOTE | 2025-01-04 16:08 | AM.OFFVISMDC ---
Intake Vital Signs 01/04/25 16:08 Height 5 ft 5 in Weight 212 lb BMI 35.3 BP 130/90 H Blood Pressure Location Lt brachial Position Sitting Respiration 20 Pulse 92 Pulse Source Pulse Oximeter Temp 98.2 F Temp Source Oral Pulse Oximetry (%) 95 Oxygen Delivery Method Room Air Intake Visit Reasons: AWV It Application Architect Required: No Accompanied by: Self / Same As Patient Allergies No Known Allergies [No Known Allergies*] Allergy (Verified 01/04/25 16:25) Medication List - Last Reconciled 01/04/25 by NAWAF Mai hydroxyzine HCl 25 mg PO BEDTIME PRN risperidone ER 50 mg (0.14 mL) subcut QMONTH tadalafil 5 mg PO DAILY 90 days tamsulosin (Flomax) 0.4 mg PO BEDTIME trazodone 100 mg PO BEDTIME PRN zolpidem 5 mg PO BEDTIME HPI AWV HPI Details Dentist: reports that he went years ago- Eye: about 3 years ago Snellen: Right: Left: Corrected vision: reports that he did the cataract surgery at [facility] STI screening: Colonoscopy: about 20 years ago. Will order the cologaurd for the patient. He does not want to do the colonoscopy reports having benign polyps that was removed (reports that it was done at [facility]) Pap Smer:n/a PHQ-9: Flu: up to date COVID: x2 Tdap: will given in office today Diet: Exercise: HPI Comments History of Present Illness Details reviewed past medical history- yes reviewed surgical / hospitalization history- yes reviewed current medications- yes reviewed family history- yes home safety throw rugs? no grab bars? yes raised toilet seat? yes working smoke detectors? yes activities of daily living difficulty bathing or showering?no difficulty dressing? no difficulty using the toilet? no difficulty getting in and out of bed? no difficulty walking?no receives help from other person's with any of the above tasks?no instrumental activities of daily living uses telephone - no gets to place out of walking distance-yes go shopping for groceries- yes repairs own meals- yes does own minor home maintenance- yes does own laundry- yes does own housework-es manages own money- yes currently takes medication- yes end of life planning discussed advanced directives- yes advanced directives on file? no discussed wishes expressed in advanced directives. yes-patient is a Full code and sister Ashley Celis is his HCP fall risk have you had any falls with injuries in the past year? no have you had 2 or more falls in the past year? no fall risk assessment: yes [facility] Medical History (Updated 12/02/24 @ 21:00 by NAWAF Mai) Insomnia Nephrolithiasis Schizophrenia Erectile dysfunction due to arterial insufficiency Surgical History History of eye surgery Family History Other Mental health disorder Social History Household Members: None Housing: Apartment Do you presently have visiting nurse or other home services: No Alcohol intake: never Patient Tobacco Use Status: Former Tobacco user Tobacco use type: Cigarette e-Cigarette/Vaping Use: Never Used Second Hand Smoke Exposure: Yes Substance Use Type: Crack/Cocaine service: No Current occupational status: retired Sexual orientation: Straight/Heterosexual Cognitive needs: No Hearing needs: No Vision needs: No Questionnaire Medicare Wellness Checkup [age] What gender do you identify with?: male During the past 4 weeks, how much have you been bothered by emotional problems such as feeling anxious, depressed, irritable, sad or downhearted, and blue?: not at all During the past 4 weeks, has your physical & emotional health limited your social activities with family, friends, neighbors, or groups?: not at all During the past 4 weeks, how much bodily pain have you generally had?: no pain During the past 4 weeks, was someone available to help you if you needed & wanted help?: yes, a little During the past 4 weeks, what was the hardest physical activity you could do for at least 2 minutes?: light Can you get to places out of walking distance without help? (For eg., can you travel alone on buses, taxis or drive your car?): Yes Can you go shopping for groceries or clothes without someone's help?: Yes Can you prepare your own meals?: Yes Can you do your housework without help?: Yes Because of any health problems, do you need the help of another person with your personal care needs such as eating, bathing, dressing or getting around the house?: No Can you handle your own money without help?: Yes During the past 4 weeks, how would you rate your health in general?: very good During the past 4 weeks how have things been going for you?: good & bad parts about equal Are you having difficulties driving your car?: not applicable, I don't use a car Do you always fasten your seat belt when you are in a car?: yes, sometimes During past 4 weeks, have you been bothered by the following: never: Falling or dizzy when standing up, Sexual problems?, Trouble eating well?, Teeth or denture problems?, Problems using the telephone? and Tiredness or fatigue? Have you fallen 2 or more times in the past year?: No Are you afraid of falling?: No Are you a smoker?: yes, and I might quit During the past 4 weeks, how many drinks of wine, beer, or other alcoholic beverages did you have?: no alcohol at all Do you exercise for about 20 minutes 3 or more times a week?: no, I usually do not exercise this much Have you been given information to help with the following?: yes: Hazards in your house that might hurt you? and yes: Keeping track of your medications? How often do you have trouble taking medicines the way you have been told to take them?: I always take medicine as prescribed How confident are you that you can control & manage most of your health problems?: somewhat confident What is your race?: White Mini Mental State Exam (MMSE) Orientation What is the (year) (season) (date) (day) (month)?: year, season, date, day and month Where are we (state) (county) (town or city) (hospital) (floor)?: state, county, town or city, hospital/clinic and floor Score Score: 10 PHQ-9 Over the last 2 weeks, how often have you been bothered by any of the following problems? 1. Little interest or pleasure in doing things: several days 2. Feeling down, depressed, or hopeless: several days 3. Trouble falling or staying asleep, or sleeping too much: more than half the days 4. Feeling tired or having little energy: several days 5. Poor appetite or overeating: several days 6. Feeling bad about yourself - or that you are a failure or have let yourself or your family down: several days 7. Trouble concentrating on things, such as reading the newspaper or watching television: several days 8. Moving or speaking so slowly that other people could have noticed. Or the opposite - being so fidgety or restless that you have been moving around a lot more than usual: several days 9. Thoughts that you would be better off or of hurting yourself in some way: not at all Total score: 9 Depression Screening Interpretation: Positive Depression Screening Done: Yes 60984 - PHQ-9 Billing: Yes Source: Developed by Drs. Nadeem Abdullahi, Charo Jade, Kenroy Short and colleagues, with an educational tai from [employer]. Physical Exam Vital Signs: Last Vital Signs Temp 98.2 F 01/04/25 16:08 Pulse 92 01/04/25 16:08 Resp 20 01/04/25 16:08 BP 130/90 H 01/04/25 16:08 Pulse Ox 95 01/04/25 16:08 Oxygen Delivery Method Room Air 01/04/25 16:08 BMI result Body Mass Index 35.3 Const Other: IPPE/AWV: Balance Romberg Yes . Tandem walk Yes. Walk and Turn Yes . Rise from sit to stand Yes . Vision Corrective lens No Vision screen pass Hearing Whisper test pass . Urinary incont. no. EKG Not clinically necessary. Immunizations Boostrix Tdap 2.5 Lf unit-8 mcg-5 Lf/0.5 mL intramuscular syringe Performing Provider: NAWAF Mai [place] Administered by: Nadira Dickinson CMA on 01/04/25 16:40 Dose Route Admin Location Dispensed Lot Number Expiration Date [facility] Pickler Helper 0.5 mL IM Left Deltoid 0.5 mL [id number] 03/23/27 [id number] [employer] VIS Given Date VIS Provided VIS Publication Date 01/04/25 Single Vaccine 21 Eligibility Eligibility Date Funding Source Not [facility] Eligible 01/04/25 Private Assessment & Plan Assessment & Plan Orders: Orders TDaP Immunization Today Z23 - Encounter for immunization Quality Reporting (2019) Depression/Bipolar (159/160/161/177) PHQ-9: Total score: 9 Coding Additional Codes PHQ-9 - 73155 - PHQ-9 Billing: Yes ([id number])
== END 2025-01-04 17:04 | disposition home or self-care (01) ==
LOC: HO.HMCH 15:59
DX: Z23 Encounter for immunization (principal)

== ENCOUNTER → 2025-01-04 15:58 | Outpatient (BNVA) | payer MEDICARE, SELFPAY | DX: Z00.00 Encounter for general adult medical examination without abnormal findings (principal); E78.2 Mixed hyperlipidemia; F20.9 Schizophrenia, unspecified; G47.00 Insomnia, unspecified; N52.01 Erectile dysfunction due to arterial insufficiency; R35.1 Nocturia; Z23 Encounter for immunization | CPT/HCPCS: 90471; 90715 ==

== ENCOUNTER 2025-04-08 10:33 | Outpatient (AMB) | payer MEDICARE, MEDICAID, SELFPAY ==
--- NOTE | 2025-04-08 10:33 | A.OFFPC_ITS ---
Intake Visit Reasons: hld/elevated liver enzymes Switch Operator Required: No Accompanied by: Self / Same As Patient Allergies No Known Allergies (No Known Allergies*) Allergy (Verified 04/08/25 11:20) Medication List - Last Reconciled 04/08/25 by NAWAF Mai hydroxyzine HCl 25 mg PO BEDTIME PRN risperidone ER 50 mg (0.14 mL) subcut QMONTH tadalafil 5 mg PO DAILY 90 days tamsulosin (Flomax) 0.4 mg PO BEDTIME trazodone 100 mg PO BEDTIME PRN zolpidem 5 mg PO BEDTIME Tobacco use date assessed: 04/08/25 Fall risk assessment: No Falls in past year Last assessed Fall Risk: 04/08/25 Dental Screening Dental Screen Date: 04/08/25 Did you have a dental visit in the last 12 months?: No Did you have a dental problem in the last 6 months where you did not have access to dental care?: No Was dental information given to patient?: No HPI hld/elevated liver enzymes HPI Details This is a medically necessary visit as the patient would typically be seen in the office, however, the patient is unable to come in the office so the visit was converted to an audiovisual, telephone visit format with patient's consent and request. Patient understands that this visit was in place of an in person visit and is aware of the risks of communicating via phone/computer and verbally consents. The patient is a 69-year-old male with significant past medical history of schizophrenia, elevated triglycerides with high cholesterol, insomnia, and erectile dysfunction due to arterial insufficiency The patient is presenting via telehealth/phone for follow up of chronic conditions Reports that he did not remember that he needed blood work Stays that he will try to get this done as soon as possible after he gets his car fix Reports that he is still going to [facility] and is seeing Laura Lopez once a month Added, that his psychiatrist is planning on setting him up with a weekly therapist Reports that he still did not start him risperidone ER 50 mg (0.14 ml) s.c qmo nth According to the patient is taking risperidone 25 mg BID instead because his pharmacy does not carry the injectable He denies chest pain, SOB, heart palpitation, or dizziness Denies abdominal pain/change in bowel habits Denies dysuria [facility] Medical History (Updated 04/08/25 @ 21:43 by NAWAF Mai) Insomnia Nephrolithiasis Schizophrenia Erectile dysfunction due to arterial insufficiency Surgical History History of eye surgery Family History Other Mental health disorder Social History Household Members: None Housing: Apartment Do you presently have visiting nurse or other home services: No Alcohol intake: never Patient Tobacco Use Status: Former Tobacco user Tobacco use type: Cigarette e-Cigarette/Vaping Use: Never Used Second Hand Smoke Exposure: Yes Substance Use Type: Crack/Cocaine service: No Current occupational status: retired Current occupational exposures/hazards: No Sexual orientation: Straight/Heterosexual Cognitive needs: No Hearing needs: No Vision needs: No Questionnaire PHQ-9 Over the last 2 weeks, how often have you been bothered by any of the following problems? 1. Little interest or pleasure in doing things: several days 2. Feeling down, depressed, or hopeless: several days 3. Trouble falling or staying asleep, or sleeping too much: more than half the days 4. Feeling tired or having little energy: several days 5. Poor appetite or overeating: several days 6. Feeling bad about yourself - or that you are a failure or have let yourself or your family down: several days 7. Trouble concentrating on things, such as reading the newspaper or watching television: several days 8. Moving or speaking so slowly that other people could have noticed. Or the opposite - being so fidgety or restless that you have been moving around a lot more than usual: several days 9. Thoughts that you would be better off or of hurting yourself in some way: not at all Total score: 9 Depression Screening Interpretation: Positive Depression Screening Done: Yes Source: Developed by Drs. Nadeem Abdullahi, Charo Jade, Kenroy Short and colleagues, with an educational tai from [employer]. Thrive Questionnaire Date Thrive assessed: 04/08/25 I am a: Patient What is your living situation today?: I have a steady place to live Within the past 12 months, did the food you bought not last and you didn't have the money to get more?: Never true Within the past 12 months, did you worry whether your food would run out before you got money to buy more?: Never true Do you have trouble paying for medicines?: No Do you have trouble getting transportation to medical appointments?: No Do you have trouble paying your heating and electricity bill?: No Do you have trouble taking care of your child, family member or friend?: No Do you have trouble with day-to-day activities such as bathing, preparing meals, shopping, managing finances, etc.?: No Are you currently unemployed and looking for a job?: No Are you interested in more education?: No Please select the resources that you would like help with: None Currently or been in a relationship where the following occur: No concerns reported THRIVE Score: 0 AUDIT C Alcohol Use Questionnaire (AUDIT-C) 1. How often do you have a drink containing alcohol?: Never 3. How often do you have six or more drinks on one occasion?: Never Total Score: 0 Score Reviewed/Action Taken: Yes TAHMINA-7 AMB Questionnaire TAHMINA-7 Date TAHMINA - 7 assessed: 04/08/25 Feeling nervous, anxious, or on edge: 0 = Not at all Not being able to stop or control worryin = Not at all Worrying too much about different things: 0 = Not at all Trouble relaxin = Not at all Being so restless that it is hard to sit still: 0 = Not at all Becoming easily annoyed or irritable: 0 = Not at all Feeling afraid as if something awful might happen: 0 = Not at all Total TAHMINA-7 score (0-4 normal; 5-9 mild; 10-14 moderate; 15-21 severe): 0 Source: Developed by Drs. Nadeem Abdullahi, Charo Jade, Kenroy Short and colleagues, with an educational tai from [employer]. Review of Systems Const Reports difficulty sleeping and Denies headache(s) Eyes Denies loss of vision ENT Denies vertigo, Denies dizziness, Denies headache(s) and Denies sore throat Card Denies chest pain, Denies leg edema and Denies lightheadedness Resp Denies cough, Denies hemoptysis and Denies wheezing GI Denies abdominal pain, Denies melena, Denies constipation, Denies diarrhea and Denies vomiting Denies dysuria, Reports nocturia (Improved some) and Denies urinary urgency Musc Denies arthralgias, Denies joint swelling, Denies numbness and Denies tingling Skin/Breast Denies lesions and Denies rash Neuro Denies behavioral changes, Denies vertigo, Denies dizziness, Denies headache(s), Denies loss of vision, Denies memory loss, Denies numbness and Denies tingling Psych Reports anxiety, Denies behavioral changes, Denies depression, Denies memory loss and Denies panic attacks Carlos Alberto/Lymph Denies easy bleeding and Denies easy bruising Aller/Immun Denies wheezing Physical exam (Primary Care) Tobacco/Smoking Status: Tobacco use Status Tobacco use date assessed 04/08/25 04/08/25 10:37 Patient Tobacco Use Status Former Tobacco user 04/08/25 10:37 Tobacco use type Cigarette 04/08/25 10:37 e-Cigarette/Vaping Use Never Used 04/08/25 10:37 PHQ-9: PHQ-9 Score PHQ-9: Total score 9 04/08/25 11:24 Depression Screening Interpretation: Positive Thrive Assessment: Date of Thrive Assessment Date Thrive assessed 04/08/25 04/08/25 10:37 Currently or been in a relationship where the following occur: No concerns reported Const Other: Telemedicine visit with real time audio video Received verbal consent given by patient for today's visit via telemedicine Physical examination is not performed as visit / consultation today is done over videoconference - Telehealth visit All physical findings indicated here, if present, are as per patient's and / or caregivers / proxy's report and visual inspection over videoconference, if appropriate or applicable Telehealth Telehealth Telehealth Platform: Telephone Location of provider rendering services: practice address Location of patient: address on file Patient Identification confirmed using: Name, : Yes Telehealth method: voice only Patient verbally consented to treatment: Yes Patient verbally consented to billing insurance company: Yes Patient informed of any privacy concerns related to visit: Yes Coding Level of Care Code Tele Est Pt Level 3 (73860) Diagnoses Schizophrenia, unspecified type F20.9 Schizophrenia type: unspecified Elevated triglycerides with high cholesterol E78.2 Nocturia R35.1 Erectile dysfunction due to arterial insufficiency N52.01 Insomnia, unspecified type G47.00 Insomnia type: unspecified Elevated liver enzymes R74.8 Time Spent (min) 34 Assessment & Plan Assessment & Plan (1) Schizophrenia: Code(s): F20.9 - Schizophrenia, unspecified Category: Medical Qualifiers: Schizophrenia type: unspecified Qualified Code(s): F20.9 - Schizophrenia, unspecified Plan: Continue risperidone tx Follow up with Psychiatry as scheduled Denies SI/HI (2) Elevated triglycerides with high cholesterol: Code(s): E78.2 - Mixed hyperlipidemia Category: Medical Plan: More recent labs to compare. In 10/2024 triglycerides 250, total cholesterol 139, LDL 38, HDL 51 Discussed lifestyle modifications including dietary changes and physical activity Encouraged the patient to get his blood work done as soon as he can to further evaluate (3) Nocturia: Code(s): R35.1 - Nocturia Category: Medical Plan: Reports some improvement since starting on tamsulosin 0.4 mg at bedtime Follow up with Urology as scheduled (4) Erectile dysfunction due to arterial insufficiency: Code(s): N52.01 - Erectile dysfunction due to arterial insufficiency Category: Medical Plan: Continue tadalafil 5 mg daily (5) Insomnia: Code(s): G47.00 - Insomnia, unspecified Category: Medical Qualifiers: Insomnia type: unspecified Qualified Code(s): G47.00 - Insomnia, unspecified Plan: Reinforced sleep hygiene Continue zolpidem 5 mg at bedtime and trazodone 100 mg at bedtime p.r.n. (6) Elevated liver enzymes: Code(s): R74.8 - Abnormal levels of other serum enzymes Category: Medical Plan: In October 2024 the patient liver enzymes were noted to be elevated. AST 71 and ALT 62. Follow up labs were ordered; this was not completed as yet. The patient reports that he has car trouble and is waiting on some money to get his car fixed. Refrain from alcohol/refrain from Tylenol use/refrain from high-calorie foods/lose weight
--- OUTSIDE RECORDS SUMMARY | 2025-04-08 11:18 | XMS_ITS | Encounter Summary ---
Author Organization [employer] Address [address] [place] [address] Care Team Providers Care Entrepreneur Name Role Phone Unavailable Primary Care Provider Unavailabl e Encounter Details Date Type Department Care Team (Latest Contact Info) Description 02/23/2021 Abstract [facility] CONVERSIONS Dental, Provider, DDS Social History [...]
== END 2025-04-08 14:54 | disposition home or self-care (01) ==
LOC: HO.HMCH 10:33
DX: F20.9 Schizophrenia, unspecified (principal); E78.2 Mixed hyperlipidemia; R35.1 Nocturia; N52.01 Erectile dysfunction due to arterial insufficiency; G47.00 Insomnia, unspecified; R74.8 Abnormal levels of other serum enzymes

== ENCOUNTER → 2025-04-08 10:33 | Outpatient (BNVA) | payer MEDICARE, MEDICAID, SELFPAY | DX: Z13.89 Encounter for screening for other disorder (principal) ==

== ENCOUNTER 2025-05-30 14:08 | Outpatient (AMB) | payer MEDICARE, MEDICAID, SELFPAY ==
[2025-05-30 14:15] VITALS: BP 110/72; PULSE 99; TEMP 36.8; O2SAT 98; BMI 35.8
--- NOTE | 2025-05-30 14:16 | MHC.OFFWIV ---
Intake Vital Signs 05/30/25 14:15 Height 5 ft 5 in Weight 215 lb BMI 35.8 BP 110/72 Blood Pressure Location Lt brachial Position Sitting Pulse 99 Pulse Source Pulse Oximeter Temp 98.2 F Temp Source Oral Pulse Oximetry (%) 98 Intake Visit Reasons: EP-rt breast lumps Patient Tobacco Use Status: Former Tobacco user Allergies No Known Allergies (No Known Allergies*) Allergy (Verified 05/30/25 14:15) Do you need a note to return to daycare/school/sports/work: No HPI HPI Comments History of Present Illness Details History of Present Illness - The patient is a 69-year-old male presenting with right breast lumps and tenderness. - The lumps have been present for at least three months, located near the nipple, and are tender to touch. - The patients sister has a history of invasive lobular carcinoma treated with double mastectomies on September 20 and DCIS many years ago. - A fungal rash was noted in the axilla, which was described as possibly due to moisture retention. - The patient also has thickened and discolored toenails and his sister is asking for treatment for them. Physical Exam General: Cooperative, healthy appearing, comfortable, no acute distress and well developed Orientation: Patient oriented x3 Limitations: No limitations Head: Normal to inspection Ears: Hearing grossly normal bilaterally Nose: Normal External nose present Face and sinus: Normal facial exam Eyes: Appearance normal, both eyes and all related structures Neck: Normal visual inspection and Yes full ROM Chest: right breast with TTP of areola, 2 small lumps subareolar, no nipple discharge, no skin changes, Respiratory: Normal respiratory effort and able to speak in complete sentences. Skin: No rashes or lesions noted Neuro: Patient oriented x3 Extremities: Normal to inspection, left axilla with flat erythematous area 2cm x 4cm with white edges [facility] Medical History (Updated 05/30/25 @ 14:53 by Dayana Chavez PA-C) Insomnia Nephrolithiasis Schizophrenia Erectile dysfunction due to arterial insufficiency Surgical History History of eye surgery Family History Other Mental health disorder Social History Household Members: None Housing: Apartment Do you presently have visiting nurse or other home services: No Alcohol intake: never Patient Tobacco Use Status: Former Tobacco user Tobacco use type: Cigarette e-Cigarette/Vaping Use: Never Used Second Hand Smoke Exposure: Yes Substance Use Type: Crack/Cocaine service: No Current occupational status: retired Current occupational exposures/hazards: No Sexual orientation: Straight/Heterosexual Cognitive needs: No Hearing needs: No Vision needs: No Review of Systems Const All systems reviewed & are unremarkable except as noted in HPI and below Physical Exam Vital Signs: Last Vital Signs Temp 98.2 F 05/30/25 14:15 Pulse 99 05/30/25 14:15 BP 110/72 05/30/25 14:15 Pulse Ox 98 05/30/25 14:15 BMI result Body Mass Index 35.8 Assessment & Plan Assessment & Plan (1) Breast lump: Code(s): N63.0 - Unspecified lump in unspecified breast Qualifiers: Laterality: right Breast mass location: subareolar Qualified Code(s): N63.41 - Unspecified lump in right breast, subareolar Plan: Plan - An ultrasound of the breast will be ordered to further evaluate the right sided subareolar breast lumps. I have messaged the patients PCP to request it. Patient was informed and verbally consented to the use of an ambient scribe for clinic note documentation during this visit. (2) Fungal infection: Code(s): B49 - Unspecified mycosis Plan: - Clotrimazole cream will be prescribed for the axillary rash, to be applied twice daily. - The patient will be advised to maintain good hygiene to prevent moisture accumulation in the axilla and groin. (3) Onychomycosis: Code(s): B35.1 - Tinea unguium Plan: - The patient will be referred to his primary care physician, Gumaro, for further evaluation of onychomycosis and potential liver enzyme monitoring if systemic treatment is considered. Medications: New clotrimazole 1% 1 appl topical bid 45 grams 1RF 2 weeks Coding Level of Care Code Est Pt Level 4 (34802) Diagnoses Subareolar mass of right breast N63.41 Laterality: right Breast mass location: subareolar Fungal infection B49 Onychomycosis B35.1
--- OUTSIDE RECORDS SUMMARY | 2025-05-30 14:20 | XMS_ITS | Encounter Summary ---
Author Organization [employer] Address [address] [place] [address] Care Team Providers Care Nurse Healthcare Manager Name Role Phone Unavailable Primary Care Provider Unavailabl e Encounter Details Date Type Department Care Team (Latest Contact Info) Description 02/23/[address] [facility] CONVERSIONS Dental, Provider, DDS Social History [...]
--- OUTSIDE RECORDS SUMMARY | 2025-05-30 14:20 | XMS_ITS | Clinical Summary ---
Author Organization [facility] Address [address] [place] [id number] Phone Care Team Providers Care Crop Puller Name Role Phone Pcp, Unknown Primary Care Provider Unavailabl e Allergies No known active allergies Medications zolpidem (AMBIEN) 10 mg tablet Take 1 tablet (10 mg total) by mouth nightly at bedtime as needed. 10 tablet 10/28/2024 Active Active Problems No known active problems Social History Tobacco Use Types Packs/Day Years Used Date Smoking Tobacco: Former Smokeless Tobacco: Never Alcohol Use Standard Drinks/Week Comments Never 0 (1 standard drink = 0.6 oz pur e alcohol) Education Answer Date Recorded Are you interested in more education? Not on alannah e 10/28/2024 Are you concerned about learning? Not on file 10/28/2024 No 10/28/2024 No 10/28/2024 Digital Access Answer Date Recorded No 10/28/2024 No 10/28/2024 Reliable internet access at home? Not on file 10/28/2024 Device with a working camera? Not on file Intimate Partner Violence Answer Date R ecorded Are you denied basic needs s uch as food, clothing, or medical care? No 10/28/2024 In the past 12 months have y ou been in a relationship with a person who hurts, threatens, or tries to control you? No 10/28/2024 Are you denied basic needs s uch as food, clothing, or medical care? No 10/28/2024 In the past 12 months have y ou been in a relationship with a person who hurts, threatens, or tries to control you? No 10/28/2024 Sex and Gender Information Value Date Recorded Sex Assigned at Male 03/29/2019 5:46 PM EDT Legal Sex Male 5:28 PM EDT Gender Identity Male 03/29/2019 5:46 PM EDT Sexual Orientation Straight 03/29/2019 5 :46 PM EDT Last Filed Vital Signs Vital Sign Reading Time Taken Comments Blood Pressure 150/101 10/28/2024 11:10 PM EST Pulse 85 10/28/2024 11:10 PM EST Temperature 36.2 C (97.1 F) 10/28/2024 11:10 PM EST Respiratory Rate 85 10/28/2024 11:10 PM EST Oxygen Saturation 96% 10/28/2024 11:10 PM EST Inhaled Oxygen Concentration - - Weight 99.8 kg (220 lb) 10/28/2024 7:50 PM EST Height 165.1 cm (5' 5 ) 10/28/2024 7:50 PM EST Body Mass Index 36.61 10/28/2024 7:50 PM EST Plan of Treatment Health Maintenance Due Date Last Done Comments Adult Td,Tdap Booster 1953 LIPID PANEL 1953 DEPRESSION SCREENING 1965 SMOKING Hx and SMOKELESS TOBACCO SCREENING 1966 HEPATITIS C SCREENING 1971 COLOGUARD 1998 COLONOSCOPY 1998 COLORECTAL CANCER SCREENING 1998 FIT TEST 1998 FOBT 1998 SIGMOIDOSCOPY 1998 VIRTUAL COLONOSCOPY 1998 PNEUMOCOCCAL VACCINES (50+ years) (1 of 1 - PCV) 2003 ZOSTER VACCINES (1 of 2) 2003 COVID-19 VACCINE (3 - 2023-2 5 season) 2024 03/17/2021, 02/17/2021 RSV VACCINE (1 - 1-dose 75+ series) 2028 ABDOMINAL AORTIC ANEURYSM (AAA) SCREENING Completed 03/29/2019 HEPATITIS A VACCINES Aged Out No long er eligible based on patient's age to complete this topic HIB VACCINES Aged Out No longer eligi ble based on patient's age to complete this topic MENINGOCOCCAL VACCINES (ACWY) Aged Out No longer eligible based on patient's age to complete this topic MENINGOCOCCAL VACCINES (B) Aged Out N o longer eligible based on patient's age to complete this topic Medical Devices Not on file Procedures Procedure Name Priority Date/Time Associated Diagnosis Comments CT ABDOMEN/PELVIS WITH CONTRAST Routine 03/29/2019 8:25 PM EDT from Last 3 Months or Most Recently Relevant to Health Maintenance Results * CT ABDOMEN/PELVIS WITH CONTRAST (03/29/2019 8:25 PM EDT) Anatomical Region Laterality Modality Abdomen, Pelvis Computed Tomogra phy 03/29/2019 8:33 PM EDT Impressions 03/29/2019 8:51 PM EDT Findings likely to represent epiploic appendagitis rather than diverticulitis in the left lower quadrant. No free fluid or other inflammatory lesions identified. Cholelithiasis and left non-obstructing nephrolithiasis incidentally noted. Hepatic steatosis. TOTAL CTDIvol: 14.1 mGy POS - [id number] Edited by: aMmta Dale on 03/29/2019 8:45 PM Narrative 03/29/2019 8:51 PM EDT HISTORY: Abdominal pain, worse in the left lower quadrant. COMPARISON: None. TECHNIQUE: After the administration of intravenous contrast, multidetector CT is obtained from dome of the liver through the inferior pubic rami. Sagittal and coronal reformats generated. Automated exposure control utilized. FINDINGS: Lung bases: No findings of concern. Liver and spleen: Liver is diffusely low density consistent with hepatic steatosis. No focal lesions of concern. Small cyst suggested in the left hepatic lobe. Spleen unremarkable. Biliary tree and pancreas: There is cholelithiasis without evidence of cholecystitis or biliary dilatation. No choledocholithiasis apparent. Pancreas unremarkable. Adrenals and : No renal or adrenal masses of concern. Two adjacent foci of interpolar left nephrolithiasis measuring on the order of 3-4 mm noted with a 4 mm lower pole stone also present, also non-obstructing. No ureteral stones. Bladder decompressed. Prostate unremarkable. Bowel: Study limited by lack of oral contrast. No evidence of bowel obstruction. There is a small focus of inflammation abutting the anterior peritoneal reflection near the sigmoid colon but it is not clearly associated with the colon and may represent epiploic appendagitis. There is diverticulosis of a fairly mild degree. No other area suspicious for diverticulitis or colitis. Appendix unremarkable. Nodes: No adenopathy detected. Vascular: No findings of concern. Incidental note made of a circumaortic left renal vein. Soft tissues: No additional inflammatory changes. No free fluid or fluid collections. No free air or bowel-containing hernias. Bones: Transitional lumbosacral element, sacralized on the left, incidentally noted. No compression deformity or bony lesions of concern detected. Procedure Note Colten Bhagat MD - 03/29/2019 HISTORY: Abdominal pain, worse in the left lower quadrant. COMPARISON: None. TECHNIQUE: After the administration of intravenous contrast, multidetectorCT is obtained from dome of the liver through the inferior pubic rami.Sagittal and coronal reformats generated. Automated exposure controlutilized. FINDINGS: Lung bases: No findings of concern. Liver and spleen: Liver is diffusely low density consistent with hepaticsteatosis. No focal lesions of concern. Small cyst suggested in the lefthepatic lobe. Spleen unremarkable. Biliary tree and pancreas: There is cholelithiasis without evidence ofcholecystitis or biliary dilatation. No choledocholithiasis apparent.Pancreas unremarkable. Adrenals and : No renal or adrenal masses of concern. Two adjacent fociof interpolar left nephrolithiasis measuring on the order of 3-4 mm notedwith a 4 mm lower pole stone also present, also non-obstructing. Noureteral stones. Bladder decompressed. Prostate unremarkable. Bowel: Study limited by lack of oral contrast. No evidence of bowelobstruction. There is a small focus of inflammation abutting the anteriorperitoneal reflection near the sigmoid colon but it is not clearlyassociated with the colon and may represent epiploic appendagitis. Thereis diverticulosis of a fairly mild degree. No other area suspicious fordiverticulitis or colitis. Appendix unremarkable. Nodes: No adenopathy detected. Vascular: No findings of concern. Incidental note made of a circumaorticleft renal vein. Soft tissues: No additional inflammatory changes. No free fluid or fluidcollections. No free air or bowel-containing hernias. Bones: Transitional lumbosacral element, sacralized on the left,incidentally noted. No compression deformity or bony lesions of concerndetected. IMPRESSION: Findings likely to represent epiploic appendagitis rather thandiverticulitis in the left lower quadrant. No free fluid or otherinflammatory lesions identified. Cholelithiasis and left non-obstructingnephrolithiasis incidentally noted. Hepatic steatosis. TOTAL CTDIvol: 14.1 mGy POS - [id number] Edited by: Mamta Dale on 03/29/2019 8:45 PM Renato Fernández PA-C IMG CT ABD/PELVIS Final Result from Last 3 Months or Most Recently Relevant to Health Maintenance Insurance MEDICARE PART A & B MEDICARE PART A & B MEDICARE PART A & B MEDICARE PART A & B MEDICARE PART A & B MEDICARE PART A & B MEDICARE PART A & B MEDICARE PART A & B MEDICARE PART A & B Care Teams Crop Puller Relationship Specialty Start Date End Date Pcp, Unknown PCP - General 10/28/24 Additional Source Comments The information contained in this document represents components of the legal health record. It is not the complete legal health record.[facility]
== END 2025-05-30 17:33 | disposition home or self-care (01) ==
PROVIDERS: Visit Provider Physician Assistant
DX: N63.41 Unspecified lump in right breast, subareolar (principal); B49 Unspecified mycosis; B35.1 Tinea unguium

== ENCOUNTER → 2025-05-30 14:08 | Outpatient (BNVA) | payer MEDICARE, MEDICAID, SELFPAY | PROVIDERS: Visit Provider Physician Assistant | DX: N63.41 Unspecified lump in right breast, subareolar (principal); B49 Unspecified mycosis; B35.1 Tinea unguium | CPT/HCPCS: 99212 ==

== ENCOUNTER 2025-06-26 11:21 | Outpatient (REF) | payer MEDICARE, MEDICAID, SELFPAY ==
--- NOTE | ~2025-06-26 | MM_ITS ---
EXAMINATION: MM DIAGNOSTIC DIGITAL BREAST TOMOSYNTHESIS, BILATERAL Limited right breast ultrasound. CLINICAL INFORMATION: 69-year-old male with right breast palpable lump and pain. Patient's sister had a history of breast cancer diagnosed twice. COMPARISON: Mammography: Comparison is made with relevant prior exams. TECHNIQUE: Digital breast mammography with tomosynthesis is performed in both the craniocaudal and mediolateral oblique views along with computer-aided detection (CAD). FINDINGS: There are scattered areas of fibroglandular density (ACR BI-RADS breast composition Category b). Left: Trace retroareolar gynecomastia. Right: There is moderate retroareolar flame-shaped gynecomastia correlating with the patient's painful and palpable right breast lump. No suspicious calcifications or other abnormal findings. Targeted color Doppler ultrasound scanning in the retroareolar region of the right breast area of patient's painful palpable lump demonstrates moderate retroareolar gynecomastia. There is no sonographic abnormal finding. Results are provided to the patient at time of visit by the technologist. MM/MM tomosynthesis diagnostic BI IMPRESSION: Left: Trace gynecomastia. Benign. Right: Moderate gynecomastia. Benign. Recommend clinical evaluation and follow-up. ASSESSMENT: BI-RADS BI-RADS 2 - Benign Findings RECOMMENDATION: Clinical evaluation and followup Electronically signed by: Skye Dallas DO 06/26/2025 12:48 PM EDT
--- OUTSIDE RECORDS SUMMARY | 2025-06-26 14:42 | XMS_ITS | Encounter Summary ---
Author Organization [facility] Address [address] [place] [address] Care Team Providers Care Show Worker Name Role Phone Unavailable Primary Care Provider Unavailabl e Encounter Details Date Type Department Care Team (Latest Contact Info) Description 02/23/2021 Abstract [facility] CONVERSIONS Dental, Provider, DDS Social [...]
--- OUTSIDE RECORDS SUMMARY | 2025-06-26 14:42 | XMS_ITS | Clinical Summary ---
Author Organization [facility] [employer] Address [address] [place] [address] [address] [place] [address] Care Team Providers Care Tumbler Operator Name Role Phone Unavailable Primary Care Provider Unavailabl e Allergies No known active allergies Medications risperiDONE (RisperDAL) 1 MG tablet 12/05/2024 Active tamsulosin (Flomax) 0.4 MG 24 hr capsule 11/30/2024 Activ e topiramate 50 MG tablet 12/21/2024 Active traZODone (Desyrel) 100 MG tablet 12/28/2024 Active zolpidem (Ambien) 10 MG tablet Take 10 mg by mouth if needed at bedtime. 10/28/2024 Active zolpidem (Ambien) 5 MG tablet 12/28/2024 Active Active Problems Problem Noted Date Diagnosed Date Kidney disease 01/31/2014 Heart murmur 01/31/2014 Rheumatic fever 01/31/2014 Social History Tobacco Use Types Packs/Day Years Used Date Smoking Tobacco: Some Days Cigarettes Smokeless Tobacco: Current Tobacco Cessation:Ready to Q uit: Not Asked; Counseling Given: Not Answered Sex and Gender Information Value Date Recorded Sex Assigned at Male 2022 10:24 AM EDT Legal Sex Male 10:24 AM EDT Gender Identity Male 2022 10:24 AM EDT Sexual Orientation Straight 2022 10 :24 AM EDT Last Filed Vital Signs Vital Sign Reading Time Taken Comments Blood Pressure 134/80 01/10/2025 8:36 AM EDT Pulse 88 01/10/2025 8:36 AM EDT Temperature - - Respiratory Rate - - Oxygen Saturation - - Inhaled Oxygen Concentration - - Weight - - Height - - Body Mass Index - - Plan of Treatment Health Maintenance Due Date Last Done Comments CT Colonography 1953 Colonoscopy 1953 Colorectal Cancer Screening 1953 Depression Screening 1953 FIT DNA/Cologuard 1953 FIT 1953 FOBT 1953 Lipid Panel 1953 SDOH Screening 1953 Sigmoidoscopy 1953 Alcohol/Substance Use Screening 1965 Hepatitis C Screening 1971 Zoster Vaccines (1 of 2) 2003 Dental Prophylaxis 08/27/2021 02/23/2021, 0 05/06/2015, 11/04/2014 Dental Oral Exam 09/03/2021 03/02/2021, , 08/02/2014, Additional history exists Dental X-Ray: Bitewings 02/24/2022 02/24/20 21, 05/06/2015, 08/02/2014, Additional history exists Dental X-Ray: Full Mouth 02/25/2024 02/23/2021, 03/10 COVID-19 Vaccine ( - season) 2025 03/17/2021, 02/17/2021 Influenza Vaccine (#1) 2025 , 10/13/2024, 07/20/2020, Additional history exists Tobacco Screening 01/10/2026 01/10/2025 RSV Patients and Patients Aged 60 years or older (1 - 1-dose 75+ series) 2028 DTaP/Tdap/Td Vaccines (3 - Td or Tdap) 01/04/2035 01/04/2025, 06/18/2014 Pneumococcal Vaccine: 50+ Years Completed 09/25/2019, 09/11/2018 HIB Vaccines Aged Out No longer eligi [...] patient's age to complete this topic Meningococcal B Vaccine Aged Out No l onger eligible based on patient's age to complete this topic Meningococcal Vaccine Aged Out No axel keerthi eligible based on patient's age to complete this topic RSV under 20 months Aged Out No longe r eligible based on patient's age to complete this topic Rotavirus Vaccines Aged Out No longer eligible based on patient's age to complete this topic Procedures Procedure Name Priority Date/Time Associated Diagnosis Comments PERIODIC ORAL EVALUATION - ESTABLISHED PATIENT Routine 03/02/2021 12:00 AM EDT PROPHYLAXIS - ADULT Routine 02/23/2021 1 2:00 AM EDT INTRAORAL - COMPLETE SERIES OF RADIOGRAPHIC IMAGES Routine 02/23/2021 12:00 AM EDT from Last 3 Months or Most Recently Relevant to Health Maintenance Insurance DENTAL - HSN FULL (MEDICAID) [address] [place] [address]
--- OUTSIDE RECORDS SUMMARY | 2025-06-26 14:42 | XMS_ITS | Clinical Summary ---
Author Organization [facility] Address [address] [place] [phone] Phone Care Team Providers Care Student Education Specialist Name Role Phone Pcp, Unknown Primary Care [...] 2003 ZOSTER VACCINES (1 of 2) 2003 INFLUENZA VACCINE (#1) 2025 07/20/2020 COVID-19 VACCINE (3 - 2024-2 6 season) 2025 03/17/2021, 02/17/2021 RSV VACCINE (1 - 1-dose [...] steatosis. TOTAL CTDIvol: 14.1 mGy POS - [id number] Edited by: Mamta Dale on 03/29/2019 8:45 PM Narrative 03/29/2019 [...] lesions of concern detected. Procedure Note Colten Bhgaat MD - 03/29/2019 HISTORY: Abdominal pain, worse [...] steatosis. TOTAL CTDIvol: 14.1 mGy POS - [id number] Edited by: Mamta Dale on 03/29/2019 8:45 [...] MEDICARE PART A & B Care Teams Student Education Specialist Relationship Specialty Start Date End Date Pcp, Unknown PCP - General 10/28/24 Additional Source Comments The information contained in this document represents components of the legal health record. It is not the complete legal health record.[facility]
== END 2025-06-26 11:22 | disposition home or self-care (01) ==
LOC: HO.MAMMO 11:21
DX: N63.41 Unspecified lump in right breast, subareolar (principal); Z80.3 Family history of malignant neoplasm of breast
CPT/HCPCS: 76642; 77062; 77066

== ENCOUNTER → 2025-06-26 11:30 | Outpatient (BNV) | payer MEDICARE, MEDICAID, SELFPAY | PROVIDERS: Visit Provider Internal Medicine | DX: N63.41 Unspecified lump in right breast, subareolar (principal) | CPT/HCPCS: 76642; 77066; G0279 ==

== ENCOUNTER 2025-07-09 08:28 | Outpatient (REF) | payer MEDICARE, MEDICAID, SELFPAY ==
[2025-07-09 08:47] LABS: MANUAL DIFF FLAG NO
--- OUTSIDE RECORDS SUMMARY | 2025-07-09 08:48 | XMS_ITS | Encounter Summary ---
Author Organization [employer] Address [address] [facility] [address] [place] [address] Care Team Providers Care Quality Assurance Qa Lab Technician Name Role Phone Unavailable Primary Care Provider Unavailabl e Encounter Details Date Type Department Care Team (Latest Contact Info) Description 02/23/2021 Abstract [facility] CONVERSIONS Dental, Provider, DDS Social History [...]
--- OUTSIDE RECORDS SUMMARY | 2025-07-09 08:48 | XMS_ITS | Clinical Summary ---
Author Organization [employer] Address [address] [place] [address] [address] [place] [address] Care Team Providers Care Military Personnel Specialist Name Role Phone Unavailable Primary Care Provider [...] Maintenance Insurance DENTAL - HSN FULL (MEDICAID) Member Subscriber Plan / Payer (Ef fective 2025-Present) Name:Margarito Jade Relation to Subscriber:Self Name:Margarito Jade Payer ID:Not on file Group ID:Not on file Type:Not on file Address: [address] [id number] [address] [place] [address]
--- OUTSIDE RECORDS SUMMARY | 2025-07-09 08:48 | XMS_ITS | Clinical Summary ---
Author Organization [facility] Address [address] [place] [phone] Phone Care Team Providers Care Wallpaper Printer Helper Name Role Phone Pcp, Unknown Primary Care [...] steatosis. TOTAL CTDIvol: 14.1 mGy POS - [id number] Edited by: Mamta Dale on 03/29/2019 8:45 [...] steatosis. TOTAL CTDIvol: 14.1 mGy POS - [id number] Edited by: Mamta Dale on 03/29/2019 8:45 [...] MEDICARE PART A & B Care Teams Wallpaper Printer Helper Relationship Specialty Start Date End Date Pcp, Unknown PCP - General 10/28/24 Additional Source Comments The information contained in this document represents components of the legal health record. It is not the complete legal health record.[facility]
[2025-07-09 09:41] LABS: Hematocrit 49.7 % (42.0-52.0); Hemoglobin 17.5 g/dl (14.0-18.0); Imm Gran Abs Auto 0.08 X10*3/uL (0.00-0.03); Imm Gran Pct Auto 0.8 % (0.0-0.4); Lymphocytes Absolute Auto 3.7 X10*3/uL (1.2-4.9); Mean Corpuscular HGB Conc 35.2 g/dl (31.0-36.0); Mean Corpuscular Hemoglobin 29.6 pg (27.0-33.0); Mean Corpuscular Volume 84.0 fL (80.0-98.0); NRBC Abs Auto 0.000 X10*3/uL (0.0-0.012); NRBC Pct Auto 0.0 /100WBC (0.0-0.2); Platelet Count 214 X10*3/uL (160-400); Red Blood Count 5.92 X10*6/uL (4.60-5.80); White Blood Count 9.8 X10*3/uL (4.8-10.8)
[2025-07-09 10:14] LABS: Alanine Aminotransferase 47 U/L (0-40); Albumin Level 4.6 g/dL (3.5-5.0); Alkaline Phosphatase 73 U/L (39-117); Anion Gap 14 (12-20); Aspartate Amino Transferase 32 U/L (5-37); Blood Urea Nitrogen 12 mg/dL (9-16); Calcium 9.7 mg/dL (8.4-10.2); Carbon Dioxide 22 mmol/L (22-29); Chloride 108 mmol/L (96-108); Cholesterol 198 mg/dL (<200); Estimated Glomerular Filt Rate > 60; HDL Cholesterol 39 mg/dL (>40); Potassium 4.0 mmol/L (3.3-5.1); Sodium 140 mmol/L (135-145); Total Protein 7.5 g/dL (6.5-8.0); Triglycerides 185 mg/dL (<150)
[2025-07-09 10:23] LABS: PSA,Total (Free>4and<10) 2.25 ng/mL (0.00-4.00); Prostate Specific Antigen 2.27 ng/mL (<0.05-4.0)
[2025-07-09 10:40] LABS: Appearance Urine Clear; Glucose Urine UA Negative (Negative); PH 5.0 (5.0-9.0); Specific Gravity - Urine 1.020 (1.005-1.025)
[2025-07-14 15:13] LABS: Testosterone, Free 38.3 pg/mL (30.0-135.0)
== END 2025-07-09 08:29 | disposition home or self-care (01) ==
LOC: HO.LAB 08:28
PROVIDERS: Urology
DX: Z00.00 Encounter for general adult medical examination without abnormal findings (principal); Z12.5 Encounter for screening for malignant neoplasm of prostate; N52.01 Erectile dysfunction due to arterial insufficiency; E78.2 Mixed hyperlipidemia; F20.9 Schizophrenia, unspecified; R35.1 Nocturia; G47.00 Insomnia, unspecified; R74.8 Abnormal levels of other serum enzymes; B35.1 Tinea unguium; Z79.899 Other long term (current) drug therapy
CPT/HCPCS: 36415; 80053; 80061; 81003; 82306; 84153; 84402; 84403; 84443; 85025; 99212

== ENCOUNTER 2025-07-09 08:54 | Outpatient (AMB) | payer MEDICARE, MEDICAID, SELFPAY ==
--- NOTE | 2025-07-09 09:08 | A.OFFPC_ITS ---
Vital Signs 07/09/25 09:09 Height 5 ft 5 in Weight 221 lb 8 oz BMI 36.9 BP 120/74 Blood Pressure Location Lt brachial Position Sitting Respiration 18 Pulse 85 Pulse Source Pulse Oximeter Temp 97.9 F Temp Source Temporal Artery Scan Pulse Oximetry (%) 96 Oxygen Delivery Method Room Air Intake Visit Reasons: 3 months Intake Note: Patient is here to follow up on Schizophrenia, ED. Car Tracer: Not Required per policy Accompanied by: Self / Same As Patient Allergies No Known Allergies (No Known Allergies*) Allergy (Verified 07/09/25 09:21) Medication List - Last Reconciled 07/09/25 by NAWAF Mai clotrimazole 1% 1 appl topical bid 2 weeks hydroxyzine HCl 25 mg PO BEDTIME PRN tadalafil 5 mg PO DAILY 90 days tamsulosin (Flomax) 0.4 mg PO BEDTIME trazodone 100 mg PO BEDTIME PRN zolpidem 5 mg PO BEDTIME Tobacco use date assessed: 07/09/25 Fall risk assessment: No Falls in past year Last assessed Fall Risk: 07/09/25 Dental Screening Dental Screen Date: 07/09/25 Did you have a dental visit in the last 12 months?: No Did you have a dental problem in the last 6 months where you did not have access to dental care?: No Was dental information given to patient?: No HPI 3 months HPI Details The patient is a 69-year-old male presenting with management of left knee osteoarthritis. Patient is accompanied by sister Naomi. The patient has been advised that the cartilage in his left knee is gone, necessitating a knee replacement, which was initially scheduled for January 14 but delayed due to a corticosteroid injection that required a three-month postponement to avoid infection risk. The patient reports a weight of 221 pounds, which is considered excessive for his joints, and has been advised to lose weight to maximize the benefits of the knee surgery. The patient also presents with a fungal toenail infection, which has been persistent and difficult to treat due to the avascular nature of the area. The patient has been non-compliant with hygiene practices, such as regular showering, which exacerbates the condition. Previous attempts to treat the infection with topical creams have been ineffective, and referral to podiatry has been recommended. The patient was noted to have an eye infection characterized by yellow drainage and double vision, which he attributes to a macular pucker. He has been advised to follow up with an student financial services counselor for further evaluation and management of for his blurriness and an antibiotic eye drops was given. The patient has a history of breast lumps, which were evaluated without biopsy, and he has been advised to monitor for any changes. The patient has a history of smoking and has been encouraged to quit, as it contributes to his overall health issues. He has been non-adherent to his medication regimen, particularly with Risperdal, due to difficulties in remembering to take the medication as prescribed. There is concerns of if the patient is taking his medication when he supposed to. Per his sister, he was given the resperdal injection in the hospital and that made a significant difference; he was back to his old self. She is going to she if his psychiatrist will reorder this, and update the office so a PT could be placed for monthly nurse visit. The patient need refills on her his medications-RX refilled. left knee osteoarthritis needs gordy [facility] Medical History Insomnia Nephrolithiasis Schizophrenia Erectile dysfunction due to arterial insufficiency Surgical History History of eye surgery Family History Other Mental health disorder Social History Household Members: None Housing: Apartment Do you presently have visiting nurse or other home services: No Alcohol intake: never Patient Tobacco Use Status: Former Tobacco user Tobacco use type: Cigarette e-Cigarette/Vaping Use: Never Used Second Hand Smoke Exposure: Yes Substance Use Type: Crack/Cocaine service: No Current occupational status: retired Current occupational exposures/hazards: No Sexual orientation: Straight/Heterosexual Cognitive needs: No Hearing needs: No Vision needs: No Questionnaire PHQ-9 Over the last 2 weeks, how often have you been bothered by any of the following problems? 1. Little interest or pleasure in doing things: several days 2. Feeling down, depressed, or hopeless: not at all 3. Trouble falling or staying asleep, or sleeping too much: more than half the days 4. Feeling tired or having little energy: several days 5. Poor appetite or overeating: several days 6. Feeling bad about yourself - or that you are a failure or have let yourself or your family down: not at all 7. Trouble concentrating on things, such as reading the newspaper or watching television: several days 8. Moving or speaking so slowly that other people could have noticed. Or the opposite - being so fidgety or restless that you have been moving around a lot more than usual: not at all 9. Thoughts that you would be better off or of hurting yourself in some way: not at all Total score: 6 Depression Screening Interpretation: Positive Depression Screening Done: Yes Source: Developed by Drs. Nadeem Abdullahi, Charo Jade, Kenroy Short and colleagues, with an educational tai from [employer]. Thrive Questionnaire Date Thrive assessed: 04/08/25 I am a: Patient What is your living situation today?: I have a steady place to live Within the past 12 months, did the food you bought not last and you didn't have the money to get more?: Often true Within the past 12 months, did you worry whether your food would run out before you got money to buy more?: Often true Do you have trouble paying for medicines?: No Do you have trouble getting transportation to medical appointments?: Yes Do you have trouble paying your heating and electricity bill?: No Do you have trouble taking care of your child, family member or friend?: No Do you have trouble with day-to-day activities such as bathing, preparing meals, shopping, managing finances, etc.?: No Are you currently unemployed and looking for a job?: Yes Are you interested in more education?: Yes Please select the resources that you would like help with: Transportation, Daily support, Job search/training and Education Currently or been in a relationship where the following occur: No concerns reported THRIVE Score: 3 AUDIT C Alcohol Use Questionnaire (AUDIT-C) 1. How often do you have a drink containing alcohol?: Never Total Score: 0 TAHMINA-7 AMB Questionnaire TAHMINA-7 Date TAHMINA - 7 assessed: 04/08/25 Feeling nervous, anxious, or on edge: 1 = Several days Not being able to stop or control worryin = Several days Worrying too much about different things: 1 = Several days Trouble relaxin = Several days Being so restless that it is hard to sit still: 1 = Several days Becoming easily annoyed or irritable: 1 = Several days Feeling afraid as if something awful might happen: 1 = Several days Total TAHMINA-7 score (0-4 normal; 5-9 mild; 10-14 moderate; 15-21 severe): 7 Source: Developed by Drs. Nadeem Abdullahi, Charo Jade, Kenroy Short and colleagues, with an educational tai from [employer]. Review of Systems Const Denies headache(s) Eyes Reports blurry vision and Denies loss of vision ENT Denies vertigo, Denies dizziness, Denies headache(s) and Denies sore throat Card Denies chest pain, Denies leg edema and Denies lightheadedness Resp Denies cough, Denies hemoptysis and Denies wheezing GI Denies abdominal pain, Denies melena, Denies constipation, Denies diarrhea and Denies vomiting Denies dysuria, Denies urinary frequency and Denies urinary urgency Musc Reports arthralgias (left knee pain), Denies joint swelling, Denies numbness and Denies tingling Skin/Breast Reports nail changes (fungus) Neuro Denies Abnormal speech present, Denies behavioral changes, Denies vertigo, Denies dizziness, Denies headache(s), Denies loss of vision, Denies memory loss, Denies numbness and Denies tingling Psych Denies anxiety, Denies behavioral changes, Denies depression, Denies memory loss, Denies panic attacks and Reports other (hx of schizophrenia) Carlos Alberto/Lymph Denies easy bleeding and Denies easy bruising Aller/Immun Denies wheezing Physical exam (Primary Care) Vital Signs: Last Vital Signs Temp 97.9 F 07/09/25 09:09 Pulse 85 07/09/25 09:09 Resp 18 07/09/25 09:09 BP 120/74 07/09/25 09:09 Pulse Ox 96 07/09/25 09:09 Oxygen Delivery Method Room Air 07/09/25 09:09 BMI result Body Mass Index 36.9 Tobacco/Smoking Status: Tobacco use Status Tobacco use date assessed 07/09/25 07/09/25 09:11 Patient Tobacco Use Status Former Tobacco user 07/09/25 09:11 Tobacco use type Cigarette 07/09/25 09:11 e-Cigarette/Vaping Use Never Used 07/09/25 09:11 PHQ-9: PHQ-9 Score PHQ-9: Total score 6 07/09/25 09:36 Depression Screening Interpretation: Positive Thrive Assessment: Date of Thrive Assessment Date Thrive assessed 04/08/25 07/09/25 09:11 Currently or been in a relationship where the following occur: No concerns reported Const General: healthy appearing, no acute distress, alert and awake Nutritional Appearance: well nourished Orientation/consciousness: oriented to person, oriented to place and oriented to time HENMT Ears: TM's normal bilaterally General nose exam: Normal nasal mucous membranes and turbinates present Eyes Conjunctivae: conjunctivae normal Sclerae: sclerae normal Pupils: Equal, round and reactive pupils present Neck Neck: Yes no lymphadenopathy and Yes no JVD Thyroid: Thyroid normal Carotids: no bruits Resp Effort & Inspection: normal respiratory effort and not tachypneic Auscultation: no crackles, no rales, no rhonchi and no wheezes Cardio Rate: regular rate Rhythm: regular rhythm Heart sounds: no murmurs and normal S1 and S2 GI Palpation (GI): Soft to palpation, nontender, no hepatomegaly and no splenomeg clayton Auscultation: normal bowel sounds Skin General skin exam: dry skin Nails: discolored and yellow and thickened Neuro General: oriented to person, oriented to place and oriented to time Cranial nerves: Yes Equal, round and reactive pupils present Speech: No Abnormal speech present Gait exam (Neuro): Normal gait present Motor exam (neuro): no tremor noted Extrem Right upper extremity: full ROM Left upper extremity: full ROM Right lower extremity: full ROM; no edema Left lower extremity: full ROM and knee Details: no tenderness and no swelling; no edema Psych Mental Status: mental status grossly normal Speech and movement: Normal speech and movement present Affect: normal affect Attitude: cooperative Thought process: Normal thought process present Coding Level of Care Code Est Pt Level 4 (55525) Diagnoses Schizophrenia, unspecified type F20.9 Schizophrenia type: unspecified Elevated triglycerides with high cholesterol E78.2 Nocturia R35.1 Erectile dysfunction due to arterial insufficiency N52.01 Insomnia, unspecified type G47.00 Insomnia type: unspecified Elevated liver enzymes R74.8 Toenail fungus B35.1 Time Spent (min) 39 Assessment & Plan Assessment & Plan (1) Schizophrenia: Code(s): F20.9 - Schizophrenia, unspecified Category: Medical Qualifiers: Schizophrenia type: unspecified Qualified Code(s): F20.9 - Schizophrenia, unspecified Plan: Continue risperidone tx, he patient is unsure of the dose. However, he is gettin g one tab in the morning and two in the evening. Follow up with Psychiatry as scheduled Denies SI/HI (2) Elevated triglycerides with high cholesterol: Code(s): E78.2 - Mixed hyperlipidemia Category: Medical Plan: More recent labs to compare. In 10/2024 triglycerides 250, total cholesterol 139, LDL 38, HDL 51- The patient completed his blood work before this appointment-they have resulted yet. Discussed lifestyle modifications including dietary changes and physical activity Encouraged the patient to get his blood work done as soon as he can to further evaluate (3) Nocturia: Code(s): R35.1 - Nocturia Category: Medical Plan: Reports some improvement since starting on tamsulosin 0.4 mg at bedtime Follow up with Urology as scheduled (4) Erectile dysfunction due to arterial insufficiency: Code(s): N52.01 - Erectile dysfunction due to arterial insufficiency Category: Medical Plan: Continue tadalafil 5 mg daily (5) Insomnia: Code(s): G47.00 - Insomnia, unspecified Category: Medical Qualifiers: Insomnia type: unspecified Qualified Code(s): G47.00 - Insomnia, unspecified Plan: Reinforced sleep hygiene Continue zolpidem 5 mg at bedtime and trazodone 100 mg at bedtime p.r.n. (6) Elevated liver enzymes: Code(s): R74.8 - Abnormal levels of other serum enzymes Category: Medical Plan: In October 2024 the patient liver enzymes were noted to be elevated. AST 71 and ALT 62. Follow up labs were ordered; this was not completed as yet. The patient reports that he has car trouble and is waiting on some money to get his car fixed. Refrain from alcohol/refrain from Tylenol use/refrain from high-calorie foods/lose weight (7) Toenail fungus: Code(s): B35.1 - Tinea unguium Category: Medical Plan: The patient has toenail fungus on multiple toes-worse on the great toes. Podiatry referral placed. Orders: Referrals Podiatry Referral B35.1 - Tinea unguium Medications: New ofloxacin 0.3% 10 drps otic (ears) Q12H 10 mL 0RF 14 days Refilled tamsulosin (Flomax) 0.4 mg PO BEDTIME 30 caps 3RF tadalafil 5 mg PO DAILY 90 tabs 0RF sexual activity 90 days N52.01 - Erectile dysfunction due to arterial insufficiency hydroxyzine HCl 25 mg PO BEDTIME PRN 30 tabs 0RF itching trazodone 100 mg PO BEDTIME PRN 30 tabs 0RF Insomnia zolpidem 5 mg PO BEDTIME 15 tabs 0RF
[2025-07-09 09:09] VITALS: BP 120/74; PULSE 85; RESP 18; TEMP 36.6; O2SAT 96; BMI 36.9
== END 2025-07-09 09:50 | disposition home or self-care (01) ==
LOC: HO.HMCH 08:55
DX: F20.9 Schizophrenia, unspecified (principal); E78.2 Mixed hyperlipidemia; R35.1 Nocturia; N52.01 Erectile dysfunction due to arterial insufficiency; G47.00 Insomnia, unspecified; R74.8 Abnormal levels of other serum enzymes; B35.1 Tinea unguium